=== PATIENT | male | born 1950 | race Two or more races ===

== ENCOUNTER 2019-12-17 00:43 | Day surgery (SDC) | payer MEDICARE, SELFPAY ==
[2019-12-12 10:58] VITALS: BMI 25.9
[2019-12-17 07:04] VITALS: BP 130/55; PULSE 63; RESP 18; TEMP 36.1; O2SAT 99; BMI 25.7
[2019-12-17] MEDS: LACTATED RINGERS 1,000 ML 150 ML IV CONT (07:27)
--- NOTE | 2019-12-17 07:34 | WPDANESEPPF ---
Anes - Initial Pre Proc Eval Procedure: Operation Date: 12/17/19 08:30 Proposed Procedures p Colonoscopy - Pedro Youngblood MD Date/Time: 12/17/19 07:34 Surgeon: Pedro Youngblood MD Pre Op Diagnosis: DIARRHEA Patient Data Age: 69 Gender: M Height: 5 ft 10 in Weight: 81.5 kg Last Vital Signs Temp 97 F L 12/17/19 07:04 Pulse 63 12/17/19 07:04 Resp 18 12/17/19 07:04 BP 130/55 L 12/17/19 07:04 Pulse Ox 99 12/17/19 07:04 Allergies Allergy/AdvReac Type Severity Reaction Status Date / Time pseudoephedrine Allergy Mild RAPID Verified 12/17/19 07:03 [From [facility]] HEART BEAT Home Medications Medication Instructions Recorded Confirmed Type atorvastatin 20 mg tablet 20 mg PO DAILY #90 tablet 08/28/19 12/17/19 Rx cyclobenzaprine 10 mg tablet 10 mg PO TID #60 tablet 10/09/19 12/17/19 Rx aspirin 81 mg tablet,delayed 81 mg PO DAILY 11/16/19 12/17/19 History release cholecalciferol (vitamin D3) 100 2,000 unit PO DAILY cap 11/16/19 12/17/19 History mcg (4,000 unit) capsule diazepam 2 mg tablet 2 mg PO Q6H PRN tablet 11/16/19 12/17/19 History lisinopril 20 1 tablet PO DAILY 11/16/19 12/17/19 History mg-hydrochlorothiazide 12.5 mg tablet naproxen 500 mg tablet 500 mg PO BID PRN 11/16/19 12/12/19 History cholestyramine (with sugar) 4 gram 4 gm PO BID #378 gm 11/28/19 12/17/19 Rx oral powder alprazolam [Xanax] 1 mg PO DAILY 12/12/19 12/17/19 History sertraline [Zoloft] 50 mg PO DAILY 12/12/19 12/12/19 History Patient hx anesthesia problems: none Family hx anesthesia problems: none PMFSH Past Medical History Medical History (Updated 12/17/19 @ 07:33 by Bello Carpio MD) Essential (primary) hypertension History of colon polyps CLIFFORD on CPAP Surgical History Surgical History (Updated 03/06/20 @ 10:28 by Leyla Hawkins MA) H/O transurethral resection of prostate Social History Social History Smoking status: Heavy tobacco smoker Alcohol intake: current Gender identity (if verbalized by the patient): Male Anes - Eval Final PreProcedure Day of Procedure 12/17/19 07:34 Patient weight: normal Heart: regular rate and rhythm Lungs: clear to auscultation Airway: Mallampati scale class II Neurological: alert and oriented Last oral intake: >/= 8 hours ASA classification: III Emergent: no Anesthetic plan: proceed Anesthesia type and monitoring: general GIVS and standard monitoring Informed Consent: The patient's anesthetic plan and its attendant risks and benefits were discussed with the patient/family/POA. Questions were solicited and answers provided to the satisfaction of the patient/family/POA.
--- NOTE | 2019-12-17 08:45 | WPDGICN ---
Assessment and Plan Additional Plan This is a 69-year-old white male patient seen in evaluation at the request Dr. Sultana. Patient reports diarrhea for the last 2 months sometimes core occurring 15-20 times a day. He denies any bleeding. He states he has poor control of bowel movements. He notes significant urgency with need to go promptly after urgent approaches. He denies any pain. He denies any fever. He has had no recent travel. Recent stool cultures were found to be negative. He was empirically started on Questran with questionable improvement of symptoms. He underwent a trial of Cipro 1 month ago with no change in symptoms. He recently received a 2nd trial of Flagyl with no change in symptoms as well. Repeat stool cultures were found to be negative. Past medical history is significant for hypertension. He does have a prior history of colon polyps. Family history noncontributory. Current medications include Xanax, aspirin, atorvastatin, vitamins, Questran, Valium, cyclobenzaprine, Naprosyn, lisinopril, Zoloft, he has an allergy stated to Sudafed. Physical exam reveals patient to be alert. Anicteric. Vital signs stable. HEENT exam unremarkable. Lungs are clear to auscultation and percussion. Heart without murmur. Abdomen bowel sounds are present soft nontender with no organomegaly. Digital external rectal exam normal. Impression 1. Chronic diarrhea. Etiology unclear. No response to empiric trial of antibiotics. Negative stool cultures. Plan is to proceed with colonoscopy to assess more thoroughly. This could represent irritable bowel syndrome but degree of diarrhea is much more significant than expected. Plan is for colonoscopy with further recommendations after endoscopy. GI Consult Note Consult date/time: 12/17/19 08:45 HPI: Javan Tatum is a 69 year old male [facility] Past Medical History Medical History (Updated 12/17/19 @ 07:33 by Bello Carpio MD) Essential (primary) hypertension History of colon polyps CLIFFORD on CPAP Surgical History Surgical History (Updated 11/16/19 @ 10:28 by Leyla Hawkins MA) H/O transurethral resection of prostate Social History Social History Smoking status: Heavy tobacco smoker Alcohol intake: current Gender identity (if verbalized by the patient): Male Meds Home Medications and Allergies Home Medications Medication Instructions Recorded Confirmed Type atorvastatin 20 mg tablet 20 mg PO DAILY #90 tablet 08/28/19 12/17/19 Rx cyclobenzaprine 10 mg tablet 10 mg PO TID #60 tablet 10/09/19 12/17/19 Rx aspirin 81 mg tablet,delayed 81 mg PO DAILY 11/16/19 12/17/19 History release cholecalciferol (vitamin D3) 100 2,000 unit PO DAILY cap 11/16/19 12/17/19 History mcg (4,000 unit) capsule diazepam 2 mg tablet 2 mg PO Q6H PRN tablet 11/16/19 12/17/19 History lisinopril 20 1 tablet PO DAILY 11/16/19 12/17/19 History mg-hydrochlorothiazide 12.5 mg tablet naproxen 500 mg tablet 500 mg PO BID PRN 11/16/19 12/12/19 History cholestyramine (with sugar) 4 gram 4 gm PO BID #378 gm 11/28/19 12/17/19 Rx oral powder alprazolam [Xanax] 1 mg PO DAILY 12/12/19 12/17/19 History sertraline [Zoloft] 50 mg PO DAILY 12/12/19 12/12/19 History Allergies Allergy/AdvReac Type Severity Reaction Status Date / Time pseudoephedrine Allergy Mild RAPID Verified 12/17/19 07:03 [From [facility]] HEART BEAT Vital Signs Vital Signs - 24 hr 12/17/19 07:04 Temperature 36.1 C L Pulse Rate 63 Respiratory Rate 18 Blood Pressure 130/55 L Pulse Oximetry 99
[2019-12-17 09:16] VITALS: BP 107/61; PULSE 66; RESP 22; O2SAT 99
[2019-12-17 09:26] VITALS: BP 110/63; PULSE 60; RESP 25; O2SAT 99
[2019-12-17 09:36] VITALS: BP 130/69; PULSE 59; RESP 26; O2SAT 100
== END 2019-12-17 09:59 | disposition home or self-care (01) ==
PROVIDERS: PCP Family Medicine; Visit Provider Internal Medicine Gastroenterology
PROC: 0DJD8ZZ Inspection of Lower Intestinal Tract, Via Natural or Artificial Opening Endoscopic (ICD-10-PCS; CPT 45378; principal; 2019-12-17 08:30)
DX: K52.831 Collagenous colitis (principal); K64.8 Other hemorrhoids; Z86.010 Personal history of colon polyps; I10 Essential (primary) hypertension; G47.33 Obstructive sleep apnea (adult) (pediatric); Z79.82 Long term (current) use of aspirin; Z72.0 Tobacco use
CPT/HCPCS: 45380; 88305; J2704; J7120

== ENCOUNTER 2021-04-02 22:09 | Observation (INO) | payer MEDICARE, SELFPAY ==
--- NOTE | ~2021-04-02 | CT_ITS ---
EXAMINATION: CT abdomen pelvis w con EXAM DATE: 04/02/2021 23:48 INDICATION: RLQ abd pain. TECHNIQUE: Spiral CT of the abdomen and pelvis was performed following intravenous injection of 100 m L Omnipaque 350. Axial, coronal and sagittal images of the abdomen and pelvis were reviewed. The do se-length product (DLP) for this examination was 397.92 mGy-cm. The exposure was tailored according to patient size (auto mA exposure control), and iterative reconstruction (ASIR) was used as additiona l dose reduction technique. There is no prior study for comparison. FINDINGS: Patient appendix is dilated, fluid-filled and with mild adjacent inflammation, acute uncomp licated appendicitis. The liver, spleen, adrenal glands and pancreas are unremarkable. Some punctate gallstones. Nonspecif ic bilateral perinephric fat stranding. Portal and splenic veins are patent. Kidneys enhance symmet rically. There is no hydronephrosis. TURP defect. The bladder is unremarkable. There is no retro peritoneal or pelvic lymphadenopathy. There is extensive scattered arterial sclerotic disease. The stomach and small bowel are unremarkable. There is moderate amount of colonic stool. No free i ntraperitoneal gas. The heart is normal in size. There are no pericardial or pleural effusions. T he lung bases are unremarkable. Advanced lumbar spondylosis. IMPRESSION: Acute uncomplicated appendicitis. I discussed appendicitis with Faheem Mcginnis DO at 04/02/2021 23:50 CDT. Reviewed, dictated and finalized at location A.
[2021-04-02 22:10] VITALS: BP 115/57; PULSE 89; RESP 16; TEMP 37.1; O2SAT 97
[2021-04-02 22:27] LABS: Basophils Absolute Auto 0.1 K/mm3 (0.0-0.1); Basophils Percent Auto 0.4 % (0.2-1.2); Eosinophils Absolute Auto 0.2 K/mm3 (0-0.3); Eosinophils Percent Auto 1.5 % (0-4.4); Hematocrit 37.5 % (42.0-52.0); Hemoglobin 13.2 g/dL (14.0-18.0); Immature Granulocyte Absolute 0.07 K/mm3 (0.00-0.031); Immature Granulocyte Percent A 0.5 % (0-0.5); Lymphocytes Absolute Auto 1.06 K/mm3 (0.9-3.2); Lymphocytes Percent Auto 7.4 % (18.3-44.2); Mean Corpuscular HGB Conc 35.2 g/dl (32-36); Mean Corpuscular Hemoglobin 34.6 pg (26-34); Mean Corpuscular Volume 98.4 fl (80-100); Monocytes Absolute Auto 0.7 K/mm3 (0.1-0.6); Neutrophils Absolute Auto 12.2 K/mm3 (1.3-6.7); Neutrophils Percent Auto 85.2 % (45.5-73.1); Platelet Count Result 236 k/mm3 (150-375); Red Blood Count 3.81 M/mm3 (4.6-6.20); Red Cell Distribution Width 12.9 % (11.5-14.5); White Blood Count 14.3 K/mm3 (4.5-10.0)
--- NOTE | 2021-04-02 22:34 | ED.ABDPAIN ---
HPI - Abdominal Pain General Chief Complaint: Abdominal Pain Stated Complaint: abd pain Time Seen by Provider: 04/02/21 22:16 Source: RN notes reviewed History of Present Illness HPI narrative: Patient presents to emergency room from home for abdominal pain. Patient states symptoms began approximately 8 AM this morning. The pain is located in the right lower quadrant does not radiate described as sharp and stabbing. States nothing makes the pain better or worse. States that has been associated with several episodes of diarrhea. The patient did take [place] approximately 1-1/2 hours ago for pain that he has for chronic back pain with no relief he notes a low-grade fever of 100.2 at home today denies any nausea vomiting or any other symptoms Related Data Home Medications Medication Instructions Recorded Confirmed aspirin 81 mg tablet,delayed 81 mg PO DAILY 11/16/19 03/03/21 release cholecalciferol (vitamin D3) 100 2,000 unit PO DAILY cap 11/16/19 03/03/21 mcg (4,000 unit) capsule diazepam 2 mg tablet 2 mg PO Q6H PRN tablet 11/16/19 03/03/21 naproxen 500 mg tablet 500 mg PO BID PRN 11/16/19 03/03/21 Allergies Allergy/AdvReac Type Severity Reaction Status Date / Time pseudoephedrine Allergy Mild RAPID Verified 03/03/21 11:47 [From [facility]] HEART BEAT Review of Systems Review of Systems: Narrative: Gen.: Reports low-grade fever this morning ENT: Denies congestion Respiratory: Denies shortness of breath or cough CV: Denies chest pain or palpitations GI: HPI denies burning, urgency, frequency or hematuria Musculoskeletal: Denies back pain or muscle pain Neuro: Denies numbness, tingling, weakness or focal weakness Skin: Denies rash Except as documented, all other systems reviewed and negative PMF Past Medical History Medical History Essential (primary) hypertension History of colon polyps Surgical History Surgical History H/O transurethral resection of prostate History of lumbar laminectomy S/P TURP Status post trigger finger release Family History Family History Father Acute myocardial infarction Mother Family history of lung cancer Sibling Family history of malignant neoplasm of brain Social History Social History Alcohol intake: current Gender identity (if verbalized by the patient): Male Exam Narrative: Exam Narrative: APPEARANCE: No acute distress, nontoxic, resting in bed HEENT: Normocephalic, atraumatic, OMM RESPIRATORY: No respiratory distress, clear to auscultation bilaterally with no rhonchi wheezing or rales CARDIOVASCULAR: RRR s murmur ABDOMINAL: Soft nondistended tender palpation right lower quadrant with mild tenderness left lower quadrant no rebound or guarding MUSCULOSKELETAl: Moves all extremities. No clubbing, cyanosis or edema. NEURO: Awake and alert. Following commands, speech normal, no focal deficits SKIN:: Warm, dry. Normal Color PSYCHIATRIC: Normal affect/mood Course Course Emergency Course: Discussed with Dr. verdugo presentation work-up. Accepts admission at this time request patient started on Zosyn Discussed with patient and family results of workup and diagnosis. Discussed need for admission. Patient and family understand and agree to current treatment plan Vital Signs Vital signs: Vital Signs Temperature 98.8 F 04/02/21 22:10 Pulse Rate 89 04/02/21 22:10 Respiratory Rate 16 04/02/21 22:10 Blood Pressure 115/57 L 04/02/21 22:10 Pulse Oximetry 97 04/02/21 22:10 Temperature 98.8 F 04/02/21 22:10 Pulse Rate 89 04/02/21 22:10 Respiratory Rate 16 04/02/21 22:10 Blood Pressure 115/57 L 04/02/21 22:10 Pulse Oximetry 97 04/02/21 22:10 MDM - Abdominal Pain Lab Data Result diagrams: 07
[2021-04-02 22:36] LABS: Alanine Aminotransferase 49 U/L (4-50); Alkaline Phosphatase 144 U/L (38-126); Anion Gap 7 mmol/L (8-16); Aspartate Amino Transferase 57 U/L (17-59); Bilirubin,Total 0.6 mg/dL (0.2-1.3); Blood Urea Nitrogen 12 mg/dL (9-20); Calcium 9.4 mg/dL (8.4-10.2); Carbon Dioxide 27 mmol/L (22-30); Chloride 94 mmol/L (98-107); Estimated Glomerular Filt Rate > 60; Glucose 109 mg/dL (65-110); Lipase 229 U/L (23-300); Potassium 3.8 mmol/L (3.4-5.0); Sodium 128 mmol/L (137-145)
[2021-04-02] MEDS: SODIUM CHLORIDE 0.9% IV 1,000 ML 999 ML IV CONT (23:01)
[2021-04-02] MEDS: MORPHINE SULFATE (*CRX) 4 MG/ML INJ 2 MG IV PUSH (23:01)
--- NOTE | 2021-04-02 23:27 | PC.NURSE ---
Pt unable to urinate at this time. Refusing straight catheter at this time. Urinal at bedside.
--- NOTE | 2021-04-02 23:28 | PC.NURSE ---
Pt to imaging at this time.
[2021-04-03] VITALS (12 sets, daily range): BP systolic 101–143; BP diastolic 55–80; PULSE 62–79; RESP 11–20; TEMP 35.9–37.3; O2SAT 96–100; BMI 24.5
[2021-04-03 00:15] LABS: Add Urine Microscopic? NO; Appearance Urine Clear (Clear); Bilirubin Urine Negative (Negative); Blood Urine Negative (Negative); Color Urine Straw (Yellow); Glucose Urine UA Negative (Negative); Ketones Urine Negative (Negative); Leukocyte Esterase Ur Negative LEU/UL (Negative); Nitrate Urine Negative (Negative); Protein Urine Negative (Negative); Specific Grav Ur 1.019 (1.001-1.035); Urobilinogen Urine Negative mg/dL (<2.0)
--- NOTE | 2021-04-03 02:18 | PC.NURSE ---
This patient, Javan Tatum, was admitted to 3 Med Surg Room 322-02 @01:55. Report taken from Summer RN in ED Patient/family oriented to hospital policies and general routines including ID bracelet, bed and alarms, visiting hours, pain management, procedures, bathroom and other care routines, personal items, smoking policy, room service/diet, and visiting hours. Information on how to activate the Rapid Response Team has been discussed. Patient/Family are encouraged to report perceived risks to care and to ask questions if they do not understand what they are told or what they should do.
[2021-04-03] MEDS: SODIUM CHLORIDE 0.9% IV 1,000 ML 125 ML IV CONT ×2 (02:38→10:26)
[2021-04-03] MEDS: MORPHINE SULFATE (*CRX) 2 MG/ML INJ IV PUSH ×3 (02:38→11:56)
[2021-04-03 06:36] LABS: Basophils Percent Auto 0.3 % (0.2-1.2); Eosinophils Absolute Auto 0.4 K/mm3 (0-0.3); Eosinophils Percent Auto 3.1 % (0-4.4); Hematocrit 33.5 % (42.0-52.0); Hemoglobin 11.6 g/dL (14.0-18.0); Immature Granulocyte Absolute 0.08 K/mm3 (0.00-0.031); Immature Granulocyte Percent A 0.6 % (0-0.5); Lymphocytes Absolute Auto 1.99 K/mm3 (0.9-3.2); Lymphocytes Percent Auto 14.9 % (18.3-44.2); Mean Corpuscular HGB Conc 34.6 g/dl (32-36); Mean Corpuscular Hemoglobin 34.2 pg (26-34); Mean Corpuscular Volume 98.8 fl (80-100); Mean Platelet Volume 9.2 fl (7.4-10.4); Monocytes Absolute Auto 0.8 K/mm3 (0.1-0.6); Monocytes Percent Auto 5.9 % (2.6-8.5); Neutrophils Percent Auto 75.2 % (45.5-73.1); Platelet Count Result 220 k/mm3 (150-375); Red Blood Count 3.39 M/mm3 (4.6-6.20); Red Cell Distribution Width 13.1 % (11.5-14.5); White Blood Count 13.4 K/mm3 (4.5-10.0)
[2021-04-03 06:52] LABS: Anion Gap 3 mmol/L (8-16); Blood Urea Nitrogen 10 mg/dL (9-20); Calcium 8.4 mg/dL (8.4-10.2); Carbon Dioxide 27 mmol/L (22-30); Chloride 102 mmol/L (98-107); Estimated CRCL calculation 76 ml/min; Estimated Glomerular Filt Rate > 60; Glucose 93 mg/dL (65-110); Potassium 3.6 mmol/L (3.4-5.0); Sodium 132 mmol/L (137-145)
--- NOTE | 2021-04-03 08:04 | PM.IMHP ---
H&P: HPI History of Present Illness Date/Time: 04/03/21 08:04 Chief Complaint: Right lower quadrant pain Narrative: this is a 70-year-old man who presented to the emergency department overnight with right lower quadrant abdominal pain. His pain started yesterday morning. He had a couple episodes of diarrhea the night before, but no other abdominal complaints. He has never experienced anything like this before. He denies any nausea or vomiting. His temperature was slightly rising, but he was never febrile. Workup in the emergency department showed evidence of an elevated white blood count and CT confirmed acute appendicitis. He was started on Zosyn and admitted to the hospital. Since being admitted he states that his pain is controlled. He does have a history of collagenous colitis and underwent colonoscopy just a little over [address] Youngblood. He is a current smoker. He has received the COVID vaccine. Review of Systems Review of Systems: All systems reviewed & are unremarkable except as noted in HPI and below Eyes: Eyes: Denies change in vision ENT: Denies hearing loss, Denies neck pain and Denies sore throat Cardiovascular: Cardiovascular: Denies chest pain and Denies dyspnea Respiratory: Respiratory: Denies cough, Denies dyspnea and Denies wheezing Gastrointestinal: Gastrointestinal: Reports as per HPI Genitourinary: Genitourinary: Denies hematuria and Denies dysuria Musculoskeletal: Musculoskeletal: Denies arthralgias, Denies joint swelling and Denies neck pain Allergic/Immunologic: Allergic/Immunologic: Denies wheezing PMFSH Past Medical History Medical History Essential (primary) hypertension History of colon polyps Surgical History Surgical History H/O transurethral resection of prostate History of lumbar laminectomy S/P TURP Status post trigger finger release Family History Family History Father Acute myocardial infarction Mother Family history of lung cancer Sibling Family history of malignant neoplasm of brain Social History Social History Smoking packs per day: 1.2 Smoking cigarettes per day: 24.0 Years smoked: 55 Smoking pack-years: 66.00 Smoking status: Current every day smoker Alcohol intake: current Drinks per week: 35 Substance use: current Substance use type: marijuana Gender identity (if verbalized by the patient): Male Spiritual care concerns: No Meds Home Medications and Allergies Home Medications Medication Instructions Recorded Confirmed Type aspirin 81 mg tablet,delayed 81 mg PO DAILY 11/16/19 04/03/21 History release diazepam 2 mg tablet 2 mg PO Q6H PRN tablet 11/16/19 04/03/21 History naproxen 500 mg tablet 500 mg PO BID PRN 11/16/19 04/03/21 History lisinopril 20 1 tablet PO DAILY #90 tablet 05/07/20 04/03/21 Rx mg-hydrochlorothiazide 12.5 mg tablet hydrocodone 5 mg-acetaminophen 325 1 tablet PO Q6H #42 tablet 03/03/21 04/03/21 Rx mg tablet alprazolam [Xanax] 1 mg PO HS PRN 04/03/21 04/03/21 History atorvastatin 20 mg PO DAILY 04/03/21 04/03/21 History budesonide 3 mg PO DAILY 04/03/21 04/03/21 History cyclobenzaprine [Flexeril] 10 mg PO TID PRN 04/03/21 04/03/21 History dextromethorphan-guaifenesin 1 tablet PO Q12H PRN 04/03/21 04/03/21 History [Guaifenesin DM] fexofenadine [Sarah] 180 mg PO DAILY PRN 04/03/21 04/03/21 History sertraline 50 mg PO DAILY 04/03/21 04/03/21 History Allergies Allergy/AdvReac Type Severity Reaction Status Date / Time pseudoephedrine Allergy Mild RAPID Verified 04/03/21 03:21 [From [facility]] HEART BEAT Vital Signs Vital Signs - 24 hr 04/02/21 22:10 04/03/21 00:58 04/03/21 06:00 Temperature 37.1 C 36.2 C L Pulse Rate 89 75 62 Respir
--- NOTE | 2021-04-03 08:10 | WPDHPUPDATE1 ---
History and Physical Update Update Date/Time: 04/03/21 08:10 History and Physical has been reviewed, including an updated exam of the patient. There are NO changes in the patient's condition. Risks, benefits, and alternatives have been discussed and questions answered. Patient agrees to proceed with procedure.
--- NOTE | 2021-04-03 13:13 | WPDANESEPPF ---
Anes - Initial Pre Proc Eval Procedure: Operation Date: 04/03/21 14:30 Proposed Procedures p Laparoscopic Appendectomy - Javan Mandel DO Date/Time: 04/03/21 13:13 Surgeon: Javan Mandel DO Pre Op Diagnosis: Appendicitis Patient Data Age: 70 Gender: M Height: 1.78 m Weight: 77.5 kg Last Vital Signs Temp 36.2 C L 04/03/21 06:00 Pulse 62 04/03/21 06:00 Resp 16 04/03/21 06:00 BP 103/56 L 04/03/21 06:00 Pulse Ox 96 04/03/21 06:00 Allergies Allergy/AdvReac Type Severity Reaction Status Date / Time pseudoephedrine Allergy Mild RAPID Verified 04/03/21 03:21 [From [facility]] HEART BEAT Home Medications Medication Instructions Recorded Confirmed Type aspirin 81 mg tablet,delayed 81 mg PO DAILY 11/16/19 04/03/21 History release diazepam 2 mg tablet 2 mg PO Q6H PRN tablet 11/16/19 04/03/21 History naproxen 500 mg tablet 500 mg PO BID PRN 11/16/19 04/03/21 History lisinopril 20 1 tablet PO DAILY #90 tablet 05/07/20 04/03/21 Rx mg-hydrochlorothiazide 12.5 mg tablet hydrocodone 5 mg-acetaminophen 325 1 tablet PO Q6H #42 tablet 03/03/21 04/03/21 Rx mg tablet alprazolam [Xanax] 1 mg PO HS PRN 04/03/21 04/03/21 History atorvastatin 20 mg PO DAILY 04/03/21 04/03/21 History budesonide 3 mg PO DAILY 04/03/21 04/03/21 History cyclobenzaprine [Flexeril] 10 mg PO TID PRN 04/03/21 04/03/21 History dextromethorphan-guaifenesin 1 tablet PO Q12H PRN 04/03/21 04/03/21 History [Guaifenesin DM] fexofenadine [Sarah] 180 mg PO DAILY PRN 04/03/21 04/03/21 History sertraline 50 mg PO DAILY 04/03/21 04/03/21 History Laboratory Tests 04/02/21 04/02/21 04/03/21 22:18 22:18 00:05 WBC 14.3 K/mm3 H K/mm3 (4.5-10.0) RBC 3.81 M/mm3 L M/mm3 (4.6-6.20) Hgb 13.2 g/dL L g/dL (14.0-18.0) Hct 37.5 % L % (42.0-52.0) MCV 98.4 fl fl (80-100) MCH 34.6 pg H pg (26-34) MCHC 35.2 g/dl g/dl (32-36) RDW 12.9 % % (11.5-14.5) Plt Count 236 k/mm3 k/mm3 (150-375) MPV 9.0 fl fl (7.4-10.4) Immature Gran % (Auto) 0.5 % % (0-0.5) Neut % (Auto) 85.2 % H % (45.5-73.1) Lymph % (Auto) 7.4 % L % (18.3-44.2) Edmunds % (Auto) 5.0 % % (2.6-8.5) Eos % (Auto) 1.5 % % (0-4.4) Baso % (Auto) 0.4 % % (0.2-1.2) Lymph # (Auto) 1.06 K/mm3 K/mm3 (0.9-3.2) Edmunds # (Auto) 0.7 K/mm3 H K/mm3 (0.1-0.6) Eos # (Auto) 0.2 K/mm3 K/mm3 (0-0.3) Baso # (Auto) 0.1 K/mm3 K/mm3 (0.0-0.1) Abs Immat Gran (auto) 0.07 K/mm3 H K/mm3 (0.00-0.031) Absolute Neuts (auto) 12.2 K/mm3 H K/mm3 (1.3-6.7) Absolute Nucleated RBC 0.0 K/mm3 K/mm3 (0.0-0.012) Nucleated RBC % 0.0 % % (0.0-0.2) Sodium 128 mmol/L L mmol/L (137-145) Potassium 3.8 mmol/L mmol/L (3.4-5.0) Chloride 94 mmol/L L mmol/L (98-107) Carbon Dioxide 27 mmol/L mmol/L (22-30) Anion Gap 7 mmol/L L mmol/L (8-16) BUN 12 mg/dL mg/dL (9-20) Creatinine 0.80 mg/dL mg/dL (0.7-1.3) Estim Creat Clear Calc Not Reportable Estimated GFR > 60 (59 - ) Glucose 109 mg/dL mg/dL (65-110) Calcium 9.4 mg/dL mg/dL (8.4-10.2) Total Bilirubin 0.6 mg/dL mg/dL (0.2-1.3) AST 57 U/L U/L (17-59) ALT 49 U/L U/L (4-50) Alkaline Phosphatase 144 U/L H U/L (38-126) Total Protein 7.0 g/dL g/dL (6.3-8.2) Albumin 4.0 g/dL g/dL (3.5-5.1) Lipase 229 U/L U/L (23-300) Urine Color Straw (Yellow) Urine Appearance Clear (Clear) Urine pH 7.0 (5.0-9.0) Ur Specific Worth 1.019 (1.001-1.035) Urine Protein Negative mg/dL mg/dL (Negative) Urine Glucose (UA) Negative mg/dL mg/dL
--- NOTE | 2021-04-03 13:26 | PC.NURSE ---
to OR per stretcher. with patient.
[2021-04-03] MEDS: BUPIVACAINE/EPINEPHRINE 0.5% 10 ML VIAL 30 ML INFILTRATE (15:29)
[2021-04-03] MEDS: LACTATED RINGERS 1,000 ML 30 ML IV CONT ×2 (16:00→16:38)
[2021-04-03] MEDS: fentaNYL CITRATE INJ (*CRX) 100 MCG/2 ML VIAL 25 MCG IV PUSH ×4 (16:34→16:49)
--- NOTE | 2021-04-03 16:45 | W.PM.PROC2 ---
Procedure Note - Detailed Date of Procedure 04/03/21 Pre-op Diagnosis Acute Appendicitis Post-op Diagnosis same Procedure Performed Laparoscopic appendectomy Surgeon Javan Mandel, DO Anesthesia general and local (0.5% bupivacaine with epinephrine) Indications This is a 70-year-old man who presented with right lower quadrant pain that started yesterday. He has never experienced symptoms like this in the past. His pain continued to worsen. Therefore he presented to the emergency department. CT showed evidence of acute appendicitis. He was started IV Zosyn and discussions were made with the patient and decision was made to proceed with laparoscopic appendectomy, possible open. Findings Laparoscopic appendectomy was performed. The appendix appeared dilated and inflamed. There was a small amount of exudate on the surface of the appendix, but it did not appear to be clearly perforated. There was no evidence of abscess. The base of the appendix appeared healthy and viable. The appendix was removed and sent to the lab for pathology. No other intra-abdominal abnormalities were noted. Description of Procedure Procedure as well as risks, benefits, and alternatives were explained to the patient. The patient agreed to proceed. Written consent was obtained and placed in chart prior to procedure. The patient was brought back to surgical suite. He was placed supine on operating table. Time-out was done to confirm the patient and procedure. The patient was then intubated by the Anesthesia Department. his abdomen was prepped and draped in sterile fashion using chlorhexidine prep. A 12 mm incision was made at the inferior portion of the umbilicus. Blunt dissection was carried out down to the linea alba. The linea alba was then incised using a 15 blade scalpel. Then bluntly entered into the peritoneal cavity. A 12 mm trocar was then inserted, and carbon dioxide insufflation was used to create a pneumoperitoneum. The camera was inserted and the abdomen was inspected. No immediate abnormalities were identified. The patient was then placed in slight Trendelenburg position and rotated to the left. A 5 mm incision was made in the suprapubic region in midline and a 5 mm trocar was inserted under direct visualization. A 5 mm incision was made in the left lower quadrant and a 5 mm trocar was inserted under direct visualization. The right lower quadrant was carefully inspected. The cecum was identified and then this was traced back to the appendix. The appendix was identified and grasped at the mesoappendix and lifted anteriorly. Careful blunt dissection was carried out at the base of the appendix through the mesoappendix using a [place] grasper. An Endo-KARLA 45 mm blue load stapler was then advanced across the base of the appendix and clamped and fired. A white reload was then clamped across the mesoappendix and fired. This freed up our appendix completely. It was then placed in an EndoCatch bag and removed through the umbilical port. The staple lines were then inspected. Hemostasis appeared adequate and the staple lines appeared secure. The area was then irrigated with sterile saline. The pelvis was then carefully inspected and irrigated with sterile saline as well and the remainder of the abdomen was carefully inspected. The patient was then flattened out in bed. One final inspection was made around the abdominal cavity and no other abnormalities were seen. The ports were then removed under direct visualization. The camera was removed and the pneumoperitoneum was released. The fascia of the umbilical incision was reapproximated using an 0 Vicryl [id number] suture. 0.5% bupivacaine with epinephrine was infiltrated locally around each of the incisions. The skin of the incisions was then approximated using 4-0 Monocryl subcuticular suture and Exofin glue was applied on top. The patient was then awakened from anesthesia, extubated, and transferred
--- NOTE | 2021-04-03 16:54 | SUR.PHASEI ---
DR WALDRON SPEAKING TO PT IN PACU. HE STATES HE CALLED THE
--- NOTE | 2021-04-03 16:57 | SUR.PHASEI ---
PT EATING ICE CHIPS
--- NOTE | 2021-04-03 17:25 | PC.NURSE ---
patient returning to room from surgery
[2021-04-03] MEDS: HYDROcodone/acetaminophen (*CRX) 5-325 MG TABLET 1 TAB PO (18:24)
--- NOTE | 2021-04-09 16:51 | PM.DS ---
DS: Admitting Diagnosis Admitting Diagnosis Acute appendicitis DS: Discharge Diagnosis Discharge Diagnosis (1) Acute appendicitis: Qualifiers: Acute appendicitis type: with localized peritonitis Appendicitis gangrene presence: without gangrene Appendicitis perforation presence: without perforation Appendicitis abscess presence: without abscess Qualified Code(s): K35.30 - Acute appendicitis with localized peritonitis, without perforation or gangrene Code(s): K35.80 - Unspecified acute appendicitis Status: Acute (2) Essential (primary) hypertension: Code(s): I10 - Essential (primary) hypertension Status: Acute (3) Generalized anxiety disorder: Code(s): F41.1 - Generalized anxiety disorder Status: Acute (4) Cigarette smoker: Code(s): F17.210 - Nicotine dependence, cigarettes, uncomplicated Status: Acute DS: Summary Hospital Course Reason for hospitalization: Acute appendicitis Hospital Course: 70 yo man presented to ED on 04/02/21 with RLQ abdominal pain and was found to have evidence of acute appendicitis. He was started on Zosyn and admitted for further management. Laparoscopic appendectomy was performed on 04/03/21 and was uncomplicated. He was returned to the Surgical Floor. Diet and activity were advanced as tolerated. Later that day, he was remaining stable and tolerating diet with adequate pain control. He was discharged on 04/03/21. Time spent discussing smoking cessation with patient: 3 to 10 minutes Status at Discharge Functional status at discharge: independent ambulation Overall status at discharge: patient is progressing back to baseline Time Spent with Patient Time attestation: Total time spent providing and/or coordinating discharge services: Time spent: Less than 30 minutes Exam Narrative: exam unchanged from preoperatively, except for surgical incisions on abdomen. DS: Data Data Completed and Pending Completed studies during hospitalization: Pending at discharge 04/03/21 15:48 Surgical [PTH] Routine Imaging Radiologist's impression: ITS Impressions Abdomen/Pelvis CT 04/02/21 23:50 IMPRESSION: Acute uncomplicated appendicitis. I discussed appendicitis with Faheem Mcginnis DO at 04/02/2021 23:50 CDT. Discharge Plan Discharge Attending physician on discharge: Javan Waldron Consulting providers: Raul Henderson Discharging Clinician: Javan Waldron Anticipated Discharge Date/Time: 04/03/21 19:00 Patient Disposition: Home, Self-Care Activity: other - see discharge instructions Diet: other - see discharge instructions Wound Care Instructions: other - see discharge instructions Discharge Instructions: DISCHARGE INSTRUCTION SHEET FOR HERNIA, GALLBLADDER AND APPENDIX SURGERIES DR. WALDRON PATIENT TO TAKE HOME 1. May shower in 24 hours, no soaking in bath x 2weeks. 2. Call office for: Wound increasingly painful or bleeding Vomiting Fever of greater than 101 degrees 3. If no bowel movement for three days, take 1 oz. (30 ml) Milk of Magnesia or MiraLax 17g 1 to 2 times daily. 4. No heavy lifting > 10-15 pounds x weeks for hernia repairs and 2 weeks for laparoscopic cholecystectomy or appendectomy. 5. No driving for 3 days or while taking narcotic pain medications. 6. Ice to surgical site for 48 hours (30 min on, then 30 min off). 7. Up walking 10-30 minutes three times per day. 8. Resume previous home medications. 9. Follow-up 10-14 days in office for wound check or as previously scheduled. ([id number]) 10. May take hydrocodone prescription that patient already has at home. Take Tylenol 500mg every 6 hours and Ibuprofen 600mg every 6 hours for the first 2 days, then as needed. 11. NUTRITION: Start out by drinking fluids and increase your diet as tolerated. If you experience nausea, try dry toast, crackers,
== END 2021-04-03 19:13 | disposition home or self-care (01) ==
LOC: ANHED 04-03 00:01 → ANH3MEDSUR 04-03 00:47
PROVIDERS: Admitting Provider Surgery; Emergency Provider Emergency Medicine; PCP Family Medicine; Visit Provider Surgery
PROC: 0DTJ4ZZ Resection of Appendix, Percutaneous Endoscopic Approach (ICD-10-PCS; CPT 44970; principal; 2021-04-03 14:30)
DX: K35.30 Acute appendicitis with localized peritonitis, without perforation or gangrene (principal); R10.31 Right lower quadrant pain; I10 Essential (primary) hypertension; F17.290 Nicotine dependence, other tobacco product, uncomplicated; F41.1 Generalized anxiety disorder
CPT/HCPCS: 44970; 36415; 74177; 80048; 80053; 81003; 83690; 85025; 86850; 86900; 86901; 88304; 96361; 96365; 96366; 96375; 96376; 99285; A9270; G0378; J0330; J1100; J2270; J2405; J2543; J2704; J3010; J7030; J7120; Q9967

== ENCOUNTER → 2021-04-30 11:56 | Outpatient (CLI) | payer MEDICARE, SELFPAY ==
--- NOTE | ~2021-04-30 | CT_ITS ---
EXAMINATION: CT lung screening DATE: 04/30/2021 12:14 INDICATION: Personal history of tobacco dependence TECHNIQUE: Computed tomography (CT) of the chest was performed without intravenous contrast. The dose -length product was 80.27 mGy-cm. Automated exposure control and iterative reconstruction technique w ere employed. COMPARISON: CT dated 10/06/2018 FINDINGS: No significant pleural or pericardial effusion. No thoracic lymphadenopathy. Heart size is normal. There is atherosclerosis of the aorta and coronary arteries. No thoracic lymphadenopathy. Hea rt size is normal. No endobronchial lesions. No pneumothorax. Calcified granuloma left lower lobe. 2- mm right upper lobe nodules at the pleural surface. No focal airspace consolidation. Mild thoracic sp ondylosis. There are healed right rib fractures. No acute osseous abnormality. IMPRESSION: 1. Lung-RADS category 2: Benign appearance or behavior. Continue annual screening with noncontrast lo w-dose chest CT in 12 months. Reviewed, dictated and finalized at location A. IMPRESSION: 1. Lung-RADS category 2: Benign appearance or behavior. Continue annual screeni ng with noncontrast low-dose chest CT in 12 months.
== END ==
PROVIDERS: PCP Family Medicine; Visit Provider Family Medicine
DX: Z87.891 Personal history of nicotine dependence (principal)
CPT/HCPCS: 71271

== ENCOUNTER 2021-05-05 09:15 | Outpatient (CLI) | payer MEDICARE, SELFPAY ==
--- NOTE | 2021-05-05 09:00 | NEURO_ITS ---
PATIENT NUMBER: [id number] IMPRESSION: # Complains of bilateral hand numbness. # Right ulnar neuropahty aross the elbow of moderate degree. # Left ulnar neuropathy across the elbow of very minimaldegree Nerve Conduction Studies Stim Site NR Onset (ms) O-P Amp (mV) Site1 Site2 Delta-0 (ms) Dist (cm) Brennon (m/s) Right Median Motor (Abd Poll Brev) Wrist 3.8 2.2 Elbow Wrist 6.0 30.0 50 Elbow 9.8 1.2 Right Ulnar Motor (Abd Dig Minimi) Wrist 3.7 4.3 A Elbow Wrist 6.5 23.0 35 A Elbow 10.2 3.2 B Elbow Wrist 4.7 0.0 B Elbow 8.4 3.4 F Wave Studies NR F-Lat (ms) L-R F-Lat (ms) Right Median (Mrkrs) (Abd Poll Brev) 35.23 Right Ulnar (Mrkrs) (Abd Dig Min) 34.26 Motor Summary Table Stim Site NR Onset (ms) O-P Amp (mV) Site1 Site2 Delta-0 (ms) Dist (cm) Brennon (m/s) Left Median Motor (Abd Poll Brev) Wrist 4.5 3.4 Elbow Wrist 6.4 30.0 47 Elbow 10.9 3.5 Left Ulnar Motor (Abd Dig Minimi) Wrist 3.1 6.1 A Elbow Wrist 5.7 31.0 54 A Elbow 8.8 5.3 B Elbow Wrist 4.3 25.0 58 B Elbow 7.4 5.5 Right Ulnar Motor (Abd Dig Minimi) Wrist 3.5 4.3 A Elbow Wrist 7.1 32.0 45 Anti Sensory Summary Table Stim Site NR Peak (ms) P-T Amp (?V) Site1 Site2 Delta-P (ms) Dist (cm) Brennon (m/s) Left Median Anti Sensory (2-3nd Digit) Wrist 3.6 28.1 Wrist 2-3nd Digit 3.6 14.0 39 Wrist 3.7 39.0 Wrist 2-3nd Digit 3.6 14.0 39 Right Median Anti Sensory (2-3nd Digit) Wrist 3.8 169.3 Wrist 2-3nd Digit 3.8 14.0 37 Wrist 3.5 37.8 Wrist 2-3nd Digit 3.8 14.0 37 Left Radial Anti Sensory (Base 1st Digit) Wrist 2.2 9.3 Wrist Base 1st Digit 2.2 0.0 Right Radial Anti Sensory (Base 1st Digit) Wrist 3.4 5.8 Wrist Base 1st Digit 3.4 0.0 Left Ulnar Anti Sensory (5th Digit) Wrist 3.2 117.6 Wrist 5th Digit 3.2 14.0 44 Right Ulnar Anti Sensory (5th Digit) Wrist 3.0 57.0 Wrist 5th Digit 3.0 14.0 47 MTDD
--- NOTE | 2021-05-05 14:08 | NEURO_ITS ---
PATIENT NUMBER: [id number] IMPRESSION: # Complains of right hand numbness.and left hand as well # Right ulmar neuropathy across the elbow of medium degree. # left unlan neuropathy across the elbow of very minimal seerity # Left Carpal Tunnel Syndrome MTDD
== END 2021-05-05 09:16 | disposition home or self-care (01) ==
PROVIDERS: PCP Family Medicine; Visit Provider Family Medicine
DX: G60.9 Hereditary and idiopathic neuropathy, unspecified (principal); G56.02 Carpal tunnel syndrome, left upper limb; G56.23 Lesion of ulnar nerve, bilateral upper limbs
CPT/HCPCS: 95886; 95911

== ENCOUNTER 2021-09-20 10:22 | Observation (INO) | payer MEDICARE, SELFPAY ==
[2021-09-20] VITALS (13 sets, daily range): BP systolic 149–152; BP diastolic 69–78; PULSE 64–73; RESP 11–24; TEMP 36.6; O2SAT 98–100; BMI 24.3
--- NOTE | ~2021-09-20 | CT_ITS ---
EXAMINATION: CT abdomen pelvis w con DATE: 09/20/2021 12:07 INDICATION: Right flank pain and ecchymosis after fall. TECHNIQUE: Computed tomography (CT) of the abdomen and pelvis was performed with 100 cc Omnipaque 350 intravenous contrast. The dose-length product was 567.95 mGy-cm. Automated exposure control and iter ative reconstruction technique were employed. COMPARISON: CT dated 04/02/2021. FINDINGS: The lung bases are unremarkable. Heart size normal. No significant pleural or pericardial e ffusion. There are several subcentimeter hypodensities of the liver, most likely benign cysts. There are gallstones. There is bilateral perinephric stranding, nonspecific. There are small subcentimeter hypodensities of both kidneys, most likely cysts. No evidence for perinephric hematoma no retroperito johnnie hemorrhage. The spleen, pancreas, adrenal glands are unremarkable. There is mild bladder wall thickening with TUR defect in the prostate gland. Nonobstructive bowel gas pattern. No free air or free fluid. Severe richard mbar spondylosis with scoliosis. There is a nondisplaced right seventh rib fracture. IMPRESSION: 1. Nondisplaced right seventh rib fracture. No evidence for retroperitoneal or perinephric hematoma. 2: Cholelithiasis. 3: Mild diffuse bladder wall thickening. Consider cystitis in the appropriate clinical setting. Reviewed, dictated and finalized at location A. EXAMINATION CLERK
--- NOTE | ~2021-09-20 | MR_ITS ---
EXAMINATION: MR lumbar spine wo/w con DATE: 09/22/2021 14:42 INDICATION: Weakness. TECHNIQUE: Magnetic resonance imaging (MRI) of the lumbar spine was performed without and with 15 mL MultiHance intravenous contrast. Sequences included sagittal T2-weighted FSE, sagittal T2-weighted FS FSE, and sagittal and axial T1-weighted FSE. Postcontrast sequences included axial T2-weighted FSE a nd axial and sagittal T1-weighted FS FSE. COMPARISON: CT 09/20/2021 FINDINGS: There is 11 degrees levoscoliosis of lumbar spine. There are Schmorl's nodes at multiple le vels. There is moderately decreased disc height at T12-L1 and L1-L2 and severely decreased disc heigh t from L2-L3 through L5-S1 with endplate remodeling. There is Baastrup disease at L3-L4. The distal s isabela cord signal intensity is normal. The conus medullaris is at L1-L2. The following disc levels ar e specifically discussed: T12-L1: The disc is bulging and has an annular fissure. There is mild right and severe left facet teja nt osteoarthritis. There is mild bilateral neural foraminal stenosis. There is mild central canal everett nosis. L1-L2: The disc is bulging and has an annular fissure. There is moderate right and severe left facet joint osteoarthritis. There is moderate bilateral neural foraminal stenosis. There is mild central ca nal stenosis. L2-L3: The disc is bulging and has an annular fissure. There is mild bilateral facet joint osteoarthr itis. There is moderate bilateral neural foraminal stenosis. There is mild central canal stenosis. L3-L4: The disc is bulging and has an annular fissure. There is severe left facet joint osteoarthriti s. There is moderate bilateral neural foraminal stenosis. There is mild central canal stenosis with p osterior decompression. L4-L5: The disc is bulging and has an annular fissure. There is severe bilateral facet joint osteoart hritis. There is moderate bilateral neural foraminal stenosis. There is severe central canal stenosis . L5-S1: The disc is bulging and has an annular fissure. There is severe bilateral facet joint osteoart hritis. There is moderate bilateral neural foraminal stenosis. There is mild central canal stenosis. IMPRESSION: 1. Severe lumbar spondylosis. 2. Lumbar levoscoliosis. Reviewed, dictated and finalized at location B. [employer]CRAFT [employer] HOBBY SHOP MANAGER
--- NOTE | ~2021-09-20 | CT_ITS ---
EXAMINATION: CT BRAIN W/O DATE: 09/20/2021 12:07 INDICATION: Weakness after fall TECHNIQUE: Computed tomography (CT) of the head was performed without intravenous contrast. The dose- length product was 605.33 mGy-cm. COMPARISON: No prior studies for comparison. FINDINGS: Normal brain parenchymal volume for age. Normal coombs-white differentiation. No acute intrac ranial hemorrhage, infarction, mass or mass effect. No ventriculomegaly or midline shift. Midline sagittal images demonstrate a normal corpus callosum, c raniovertebral junction and sella turcica. Basilar cisterns are patent. Paranasal sinuses and mastoids are pneumatized. No depressed skull fractures. IMPRESSION: 1. No acute intracranial abnormality. Reviewed, dictated and finalized at location A. T BROKER
--- NOTE | ~2021-09-20 | XR_ITS ---
EXAMINATION: XR chest 2V 09/20/2021 11:06 INDICATION: Weakness PROCEDURE: 2 view chest COMPARISON: 02/20/2013 FINDINGS: The lungs are clear. The cardiomediastinal silhouette is within normal limits. There are no pleural effusions. There is no pneumothorax suspected. There are multiple healed right rib fract ures. IMPRESSION: 1: NO ACUTE CARDIOPULMONARY DISEASE. Reviewed, dictated and finalized at location A. ORATE SECURITY MANAGER
--- NOTE | ~2021-09-20 | MR_ITS ---
EXAMINATION: MR cervical spine wo/w con DATE: 09/21/2021 12:56 INDICATION: Cervical spine abnormality. Weakness. TECHNIQUE: Magnetic resonance imaging (MRI) of the cervical spine was performed without and with 15 m L MultiHance intravenous contrast. Sequences included sagittal and axial T2-weighted FSE, sagittal T2 -weighted FS FSE, and sagittal and axial T1-weighted FSE. Postcontrast sequences included sagittal an d axial T1-weighted FS FSE. COMPARISON: CT cervical spine 09/20/2021 FINDINGS: There is 2 mm anterolisthesis of C3 on C4 and C4 on C5 and 2 mm retrolisthesis of C5 on C6 and C6 on C7. There is mild chronic anterior wedging of C5, T1, and T3 vertebral bodies. There is mil dly decreased disc height at C3-C4 and severely decreased disc height at C5-C6 and C6-C7. There is in creased T2-weighted signal intensity in the spinal cord at C3-C4. The following disc levels are speci fically discussed: C2-C3: There is a central protrusion. There is mild right and moderate left uncovertebral joint osteo arthritis. There is severe bilateral facet joint osteoarthritis. There is mild right and moderate lef t neural foraminal stenosis. There is mild central canal stenosis. C3-C4: The disc is bulging. There is mild bilateral uncovertebral joint osteoarthritis. There is tito re bilateral facet joint osteoarthritis. There is thickening and calcification of ligamentum flavum. There is contrast enhancement in the soft tissues around the posterior elements, consistent with infl ammation. There is severe bilateral neural foraminal stenosis. There is severe central canal stenosis with ventral and dorsal indentation of the spinal cord and increased T2-weighted signal intensity in the spinal cord. C4-C5: The disc does not extend beyond the endplate margin. There is mild bilateral uncovertebral teja nt osteoarthritis. There is mild right and severe left facet joint osteoarthritis. There is mild righ t and moderate left neural foraminal stenosis. There is mild central canal stenosis. C5-C6: The disc is bulging. There is severe bilateral uncovertebral joint osteoarthritis. There is mi ld right and moderate left facet joint osteoarthritis. There is mild right and moderate left neural f oraminal stenosis. There is mild central canal stenosis with ventral indentation of the spinal cord. C6-C7: The disc is bulging. There is severe bilateral uncovertebral joint osteoarthritis. There is mi ld bilateral facet joint osteoarthritis. There is mild right and moderate left neural foraminal steno sis. There is mild central canal stenosis. C7-T1: The disc does not extend beyond the endplate margin. There is no uncovertebral joint osteoarth ritis. There is mild bilateral facet joint osteoarthritis. There is mild bilateral neural foraminal s tenosis. There is no central canal stenosis. IMPRESSION: 1. Severe cervical spondylosis with spinal cord compression and myelomalacia at C3-C4. Reviewed, dictated and finalized at location B. AURANT GENERAL MANAGER
--- NOTE | ~2021-09-20 | MR_ITS ---
EXAMINATION: MR thoracic spine wo/w con DATE: 09/22/2021 14:42 INDICATION: Weakness. TECHNIQUE: Magnetic resonance imaging (MRI) of the thoracic spine was performed without and with 15 m L MultiHance intravenous contrast. Sequences included sagittal and axial T2-weighted FSE, sagittal T2 -weighted FS FSE, and sagittal and axial T1-weighted FSE. Postcontrast sequences included sagittal an d axial T1-weighted FS FSE. COMPARISON: Thoracic spine CT 09/20/2021 FINDINGS: There is levoscoliosis of lumbar spine. There is mild chronic anterior wedging of T1, T3, a nd T4 vertebral bodies. There are Schmorl's nodes at multiple levels in lower thoracic spine. There i s mildly decreased disc height from T1-T2 through T11-T12. At T2-T3, the disc is bulging with mild ce ntral canal stenosis. At T3-T4, there is a right central extrusion with mild central canal stenosis a nd ventral indentation of the spinal cord. At T8-T9, there is a left central protrusion with mild nica tral canal stenosis. At T11-T12, there is a left central extrusion with mild central canal stenosis. There is multilevel facet joint osteoarthritis, mild at most levels. There is mild neural foraminal s tenosis bilaterally at T1-T2 and T11-T12. The spinal cord signal intensity is normal. IMPRESSION: 1. Mild thoracic spondylosis. Reviewed, dictated and finalized at location B. UREMENT SUPERINTENDENT
--- NOTE | ~2021-09-20 | MR_ITS ---
EXAMINATION: MR brain/brain stem wo/w con DATE: 09/21/2021 12:57 INDICATION: Weakness. Central spinal canal abnormality. TECHNIQUE: Magnetic resonance imaging (MRI) of the brain and brainstem was performed without and with 15 mL MultiHance intravenous contrast. Sequences included sagittal and axial T1-weighted FSE, axial diffusion-weighted FS EPI, axial T2*-weighted GRE, axial T2-weighted FLAIR Propeller, and axial T2-we ighted Propeller. Postcontrast sequences included axial and coronal T1-weighted FSE. Apparent diffusi on coefficient (ADC) maps were created. COMPARISON: Head CT 09/20/2021 FINDINGS: There are scattered areas of nonspecific increased T2-weighted signal intensity in the cere bral white matter, which is within normal limits for the patient's age. There is no intracranial hemo rrhage, acute infarction, or abnormal intracranial mass lesion. The ventricles are normal in size. Th ere is mild mucosal thickening in the paranasal sinuses. The orbits are normal. There is a trace left mastoid effusion. IMPRESSION: 1. Normal aging brain. Reviewed, dictated and finalized at location B. H REELER IMPRESSION: 1. Normal aging brain.
--- NOTE | ~2021-09-20 | CT_ITS ---
EXAMINATION: CT cervical spine wo con DATE: 09/20/2021 15:38 INDICATION: Neck pain TECHNIQUE: Computed tomography (CT) of the cervical spine was performed without intravenous contrast. The dose-length product (DLP) was 458.87 mGy-cm. Automated exposure control and iterative reconstruc tion technique were employed. COMPARISON: None FINDINGS: There is no fracture. There are 2 mm of anterolisthesis of C4 on C5. There is severe loss o f intervertebral disc space height at C5-6 and C6-7. The vertebral body heights are maintained. The o dontoid is intact. The prevertebral soft tissues are normal. Small degenerative osteophytes project f rom the anterior endplates of multiple vertebral bodies. There is moderate multilevel facet and uncov ertebral joint osteoarthritis. There is mild hyperattenuation in the epidural space anteriorly and po steriorly at the C3-4 level as well as in the interspinous space between the C3 and C4 spinous proces ses. IMPRESSION: 1. Severe cervical spondylosis without acute abnormality. 2. Mild hyperattenuation in the central spinal canal and posteriorly in the interspinous space at C3- 4 of unclear significance. Follow-up MRI is recommended. Reviewed, dictated and finalized at location F. TENANCE SCHEDULER IMPRESSION: 1. Severe cervical spondylosis without acute abnormality. 2. Mild hyperattenuation in the central spinal canal and posteriorly in the int erspinous space at C3-4 of unclear significance. Follow-up MRI is recommended.
--- NOTE | ~2021-09-20 | CT_ITS ---
EXAMINATION: CT thoracic lumbar wo con DATE: 09/20/2021 15:38 INDICATION: Back pain TECHNIQUE: Computed tomography (CT) of the thoracic and lumbar spine was performed without intravenou s contrast. The dose-length product (DLP) was 894.98 mGy-cm. Iterative reconstruction was used. COMPARISON: 04/30/2021, 04/02/2021 FINDINGS: Thoracic spine: There is a healing, subacute fracture in the posteromedial right 11th rib. There is n o acute fracture, dislocation, or subluxation of the thoracic spine. There is an unchanged mild compr ession deformity anteriorly at T3. The vertebral body heights are otherwise normal. There is mild los s of intervertebral disc space height at a few levels in the thoracic spine. The prevertebral soft ti ssues are normal. Lumbar spine: There are 2 mm of retrolisthesis of L5 on S1. No lumbar spine fracture is identified. T he vertebral body heights are maintained. There is severe loss of intervertebral disc space height fr om L2-3 through L5-S1. The prevertebral soft tissues are normal. IMPRESSION: 1. Healing subacute fracture in the posteromedial aspect of the right 11th rib. 2. Mild thoracic spondylosis. 3. Severe lumbar spondylosis. Reviewed, dictated and finalized at location F. TECHNICAL ARCHITECT
--- NOTE | 2021-09-20 10:35 | ED.WEAKNESS ---
HPI - Weakness General Chief complaint: Weakness Stated complaint: legs are weak Time Seen by Provider: 09/20/21 10:35 Source: patient Mode of arrival: wheelchair Limitations: no limitations History of Present Illness HPI Narrative: Patient is a 71-year-old male presenting for evaluation of lower extremity weakness. Patient states that he has been hunting for the past 29 days and returned home on . Patient noticed that while he was deer hunting, he was having increasing weakness in his bilateral lower extremities and tingling in his hands. Patient states that he woke up and tried to ambulate, took 2 steps and then promptly fell forward, stating that his legs gave out. He denies any fever, chills. Patient states that he did strike his head on the floor with the fall. He denies any loss of conscious. Patient states he has a pretty significant skin tear to his right upper extremity. Patient reports some bruising of the right flank. Patient denies any current pain. He denies headache pain, vision changes, difficulty with speech, difficulty with swallowing, upper extremity weakness. He does report bilateral lower extremity weakness but denies any focal numbness. States that he is a daily drinker, drinks 6 beers daily for many years. Denies any history of alcohol withdrawal. States that he has been able to tolerate oral intake without difficulty, states that he feels like he is eating enough. He denies any fever, chills, chest pain or shortness of breath. No rhinorrhea or congestion. Denies recent sick contacts. Denies dark or tarry stools. Denies frequency, dysuria, hematuria. Patient states that because he cannot ambulate he does not feel safe at home. is not able to fully lift the patient. Related Data Home Medications Medication Instructions Recorded Confirmed aspirin 81 mg tablet,delayed 81 mg PO DAILY 11/16/19 04/23/21 release diazepam 2 mg tablet 2 mg PO Q6H PRN tablet 11/16/19 04/23/21 naproxen 500 mg tablet 500 mg PO BID PRN 11/16/19 04/23/21 atorvastatin 20 mg PO DAILY 04/03/21 04/23/21 budesonide 3 mg PO DAILY 04/03/21 04/23/21 dextromethorphan-guaifenesin 1 tablet PO Q12H PRN 04/03/21 04/23/21 fexofenadine 180 mg PO DAILY PRN 04/03/21 04/23/21 Allergies Allergy/AdvReac Type Severity Reaction Status Date / Time pseudoephedrine Allergy Mild RAPID Verified 04/22/21 09:50 [From [facility]] HEART BEAT Review of Systems Review of Systems: CONSTITUTIONAL: Denies fever, chills, or sweats. EYES: Denies visual changes, redness, or discharge. ENT: Denies rhinorrhea, congestion, sore throat, or otalgia. CARDIOVASCULAR: Denies chest pain, palpitations, or edema. RESPIRATORY: Denies cough or dyspnea. GASTROINTESTINAL: Denies abdominal pain, nausea, vomiting, or diarrhea. GENITOURINARY: Denies dysuria or hematuria. SKIN: Reports skin tear to right upper upper extremity, reports bruising to right chest wall MUSCULOSKELETAL: Denies back pain, joint pain, or myalgia. NEUROLOGIC: Denies headache, reports tingling sensation in bilateral fingers, reports lower extremity weakness PMFSH Past Medical History Medical History Essential (primary) hypertension GERD (gastroesophageal reflux disease) History of colon polyps Mixed hyperlipidemia Surgical History Surgical History H/O transurethral resection of prostate History of laparoscopic appendectomy 04/02/2021 History of lumbar laminectomy S/P TURP Status post trigger finger release Family History Family History Father Acute myocardial infarction Mother Family history of lung cancer Sibling Family history of malignant neoplasm of brain Social History Social History Smoking packs per day: 1.2 Smoking cigarettes p
--- NOTE | 2021-09-20 10:50 | ECG_ITS ---
Measurements Intervals N[place] Rate: 67 P: 68 IL: 196 QRS: 241 QRSD: 161 T: 39 QT: 430 QTc: 455 Interpretive Statements SINUS RHYTHM RIGHT AXIS DEVIATION RIGHT BUNDLE BRANCH BLOCK ANTEROSEPTAL INFARCT, AGE INDETERMINATE BASELINE ARTIFACT- V3 ABNORMAL ECG Electronically Signed On 09-20-2021 16:02:19 GSE MECHANIC by Stef Sotelo D.O.
[2021-09-20 11:08] LABS: Basophils Absolute Auto 0.1 K/mm3 (0.0-0.1); Eosinophils Absolute Auto 0.5 K/mm3 (0-0.3); Eosinophils Percent Auto 5.3 % (0-4.4); Hematocrit 38.9 % (42.0-52.0); Hemoglobin 13.1 g/dL (14.0-18.0); Immature Granulocyte Absolute 0.03 K/mm3 (0.00-0.031); Immature Granulocyte Percent A 0.3 % (0-0.5); Lymphocytes Absolute Auto 1.86 K/mm3 (0.9-3.2); Lymphocytes Percent Auto 18.2 % (18.3-44.2); Mean Corpuscular HGB Conc 33.7 g/dl (32-36); Mean Corpuscular Hemoglobin 34.8 pg (26-34); Mean Corpuscular Volume 103.5 fl (80-100); Mean Platelet Volume 9.2 fl (7.4-10.4); Monocytes Absolute Auto 0.6 K/mm3 (0.1-0.6); Monocytes Percent Auto 6.1 % (2.6-8.5); Neutrophils Absolute Auto 7.1 K/mm3 (1.3-6.7); Neutrophils Percent Auto 69.1 % (45.5-73.1); Platelet Count Result 277 k/mm3 (150-375); Red Blood Count 3.76 M/mm3 (4.6-6.20); Red Cell Distribution Width 14.2 % (11.5-14.5); White Blood Count 10.2 K/mm3 (4.5-10.0)
[2021-09-20] MEDS: SODIUM CHLORIDE 0.9% IV 500 ML 999 ML IV CONT (11:16)
[2021-09-20 11:23] LABS: Alanine Aminotransferase 28 U/L (4-50); Albumin Level 4.4 g/dL (3.5-5.1); Alkaline Phosphatase 125 U/L (38-126); Anion Gap 7 mmol/L (8-16); Aspartate Amino Transferase 41 U/L (17-59); Bilirubin,Total 0.5 mg/dL (0.2-1.3); Blood Urea Nitrogen 18 mg/dL (9-20); Calcium 9.7 mg/dL (8.4-10.2); Carbon Dioxide 30 mmol/L (22-30); Chloride 99 mmol/L (98-107); Estimated CRCL calculation 67 ml/min; Estimated Glomerular Filt Rate > 60; Glucose 101 mg/dL (65-110); Potassium 4.5 mmol/L (3.4-5.0); Sodium 136 mmol/L (137-145)
[2021-09-20 11:35] LABS: Troponin I < 0.012 ng/mL (0.000-0.034)
[2021-09-20 11:49] LABS: Add Urine Microscopic? YES; Appearance Urine Clear (Clear); Bilirubin Urine Negative (Negative); Blood Urine Negative (Negative); Color Urine Yellow (Yellow); Glucose Urine UA Negative (Negative); Ketones Urine Negative (Negative); Leukocyte Esterase Ur Negative LEU/UL (Negative); Nitrate Urine Negative (Negative); Protein Urine Negative (Negative); Specific Grav Ur 1.015 (1.001-1.035); Squamous Epithelial Cell Urine Rare /hpf (Few); Urobilinogen Urine Negative mg/dL (<2.0); WBC Urine 0-3 /hpf
--- NOTE | 2021-09-20 13:10 | PC.NURSE ---
Called lab to add on CK, C-Reactive Prot, B12, ESR, Folate, RBC
[2021-09-20] MEDS: THIAMINE HCL 100 MG TABLET PO (13:21)
[2021-09-20] MEDS: FOLIC ACID 1 MG TABLET PO (13:21)
[2021-09-20 13:53] LABS: Erythrocyte Sedimentation Rate 30 mm/hr (0-20)
[2021-09-20 15:22] LABS: SARS-CoV-2 RNA PCR Negative
[2021-09-20 15:23] LABS: CRP 1.1 mg/dL (<1.0); Creatine Kinase 75 U/L (55-170)
[2021-09-20] MEDS: NICOTINE (*PBKC) 21 MG PATCH 1 PATCH TRANSDERM (16:45)
[2021-09-20] MEDS: ACETAMINOPHEN 325 MG TABLET 650 MG PO ×2 (16:45→22:50)
--- NOTE | 2021-09-20 17:00 | PM.IMHP ---
H&P: HPI History of Present Illness Date/Time: 09/20/21 17:00 Chief Complaint: Leg weakness. Narrative: This is a 71-year-old male smoker with chronic back pain, hypertension, and hyperlipidemia who presented to the emergency department earlier today from home for evaluation of leg weakness. The patient endorses chronic low back pain related to severe lumbar spondylosis which he has been managing at home with celecoxib and cyclobenzaprine. He has occasional radiculopathy, mainly in the right lower extremity, but his symptoms seem to have gotten much worse over the past 2 weeks. He has been deer hunting in [facility] and has been able to walk longer distances and get up and down the deer stands without issue though occasionally he noticed his legs, especially the right, seemed to be a bit hyperreflexic causing balance issues. He fell a couple of times in the [place] and per patient report these were mechanical falls, tripping over branches or in holes, and he did not sustain any injuries in the falls. Also of note, he reports chronic albeit mild tingling in the upper extremities, mostly in the hands, that has been ongoing for at least a year if not longer. Carpal and cubital tunnel releases done last May unfortunately provided him with no benefit. While hunting over the last week he has also noticed increasing paraesthesias and weakness in his hands and he has been having dexterity issues, for instance he missed several shots hunting which is unusual for him. He also has difficulties using his fingers to pick things up from the table. Three days ago he got up to use the restroom and he reports that his right leg gave out, causing him to fall forward and hit his right side on a desk before striking his head. He has a pretty significant bruise on the right flank and sustained a large skin tear to the right forearm which his has been caring for. Today he felt very unsafe trying to ambulate and he felt it would be best to come in for evaluation. He denies loss of consciousness in these falls. Per patient report, the falls that he had while deer hunting were of mild and caused no injuries. He denies saddle anesthesia. He has occasional issues with urinary incontinence from a previous TURP and that is unchanged. No numbness of the extremities. Review of Systems Review of Systems: Twelve systems were reviewed. No fever, chills, or sweats. No recent cold or flu symptoms. He denies sick contacts. No recent vaccinations. No history of stroke, polymyalgia rheumatica, or Guillain-Houston syndrome. Appetite has been good. He denies nausea and vomiting. No dysarthria or dysphagia. He drinks about 5 to 6 beers a day and he has never had signs or symptoms of alcohol withdrawal. Except as documented, all other systems were reviewed and are negative. [facility] Past Medical History Medical History Benign prostatic hyperplasia Chronic back pain Cigarette smoker COVID-19 (09/29/20) Daily consumption of alcohol Essential (primary) hypertension Gastroesophageal reflux disease Generalized anxiety disorder History of colon polyps Hypertension Mixed hyperlipidemia Spondylosis Tobacco use Surgical History Surgical History History of colonoscopy with polypectomy History of laparoscopic appendectomy (04/02/21) History of lumbar laminectomy History of transurethral resection of prostate Status post trigger finger release Family History Family History Father Acute myocardial infarction Mother Family history of lung cancer Sibling Family history of malignant neoplasm of brain Social History Social History Social History: Surrogate decision maker: Michelle Tatum, spouse. Code status: Full code. Smoking packs per day: 1.2 Smoking cigarettes per day: 24.0 Years smoked: 55 Smok
[2021-09-20 18:06] LABS: Glucose Point of Care 98 mg/dl (65-105)
[2021-09-20] MEDS: HYDROcodone/acetaminophen (*CRX) 5-325 MG TABLET 1 TAB PO (21:38)
[2021-09-20] MEDS: CYCLOBENZAPRINE HCL 10 MG TABLET PO (21:39)
--- NOTE | 2021-09-20 22:31 | ADMGEN ---
This patient, Javan Tatum, was admitted to Medical Room 344-01. Patient/family oriented to hospital policies and general routines including ID bracelet, bed and alarms, visiting hours, pain management, procedures, bathroom and other care routines, personal items, smoking policy, room service/diet, and visiting hours. Information on how to activate the Rapid Response Team has been discussed. Patient/Family are encouraged to report perceived risks to care and to ask questions if they do not understand what they are told or what they should do.
[2021-09-20 22:58] LABS: Glucose Point of Care 111 mg/dl (65-105)
[2021-09-21] VITALS: BP 152/78
[2021-09-21] MEDS: HYDROcodone/acetaminophen (*CRX) 5-325 MG TABLET 1 TAB PO ×3 (03:15→20:50)
[2021-09-21] MEDS: ALPRAZolam (*CRX) 0.5 MG TABLET 1 MG PO ×2 (03:16→20:02)
[2021-09-21 04:00] VITALS: BP 152/78
[2021-09-21 06:00] VITALS: BP 126/66; PULSE 60; RESP 18; TEMP 36.6; O2SAT 99
[2021-09-21 06:37] LABS: Basophils Absolute Auto 0.1 K/mm3 (0.0-0.1); Basophils Percent Auto 1.1 % (0.2-1.2); Eosinophils Absolute Auto 0.8 K/mm3 (0-0.3); Eosinophils Percent Auto 10.2 % (0-4.4); Hematocrit 36.5 % (42.0-52.0); Hemoglobin 12.5 g/dL (14.0-18.0); Immature Granulocyte Absolute 0.02 K/mm3 (0.00-0.031); Immature Granulocyte Percent A 0.3 % (0-0.5); Lymphocytes Absolute Auto 2.46 K/mm3 (0.9-3.2); Mean Corpuscular HGB Conc 34.2 g/dl (32-36); Mean Corpuscular Hemoglobin 34.4 pg (26-34); Mean Corpuscular Volume 100.6 fl (80-100); Mean Platelet Volume 9.3 fl (7.4-10.4); Monocytes Absolute Auto 0.6 K/mm3 (0.1-0.6); Monocytes Percent Auto 8.4 % (2.6-8.5); Neutrophils Absolute Auto 3.5 K/mm3 (1.3-6.7); Platelet Count Result 269 k/mm3 (150-375); Red Blood Count 3.63 M/mm3 (4.6-6.20); Red Cell Distribution Width 13.9 % (11.5-14.5); White Blood Count 7.5 K/mm3 (4.5-10.0)
[2021-09-21 06:54] LABS: Alanine Aminotransferase 25 U/L (4-50); Albumin Level 3.9 g/dL (3.5-5.1); Alkaline Phosphatase 108 U/L (38-126); Anion Gap 4 mmol/L (8-16); Aspartate Amino Transferase 36 U/L (17-59); Bilirubin,Total 0.5 mg/dL (0.2-1.3); Blood Urea Nitrogen 15 mg/dL (9-20); Calcium 9.1 mg/dL (8.4-10.2); Carbon Dioxide 28 mmol/L (22-30); Chloride 101 mmol/L (98-107); Estimated CRCL calculation 75 ml/min; Estimated Glomerular Filt Rate > 60; Glucose 87 mg/dL (65-110); Magnesium 1.9 mg/dL (1.6-2.3); Potassium 3.9 mmol/L (3.4-5.0); Sodium 133 mmol/L (137-145)
[2021-09-21 08:09] LABS: Glucose Point of Care 94 mg/dl (65-105)
[2021-09-21] MEDS: FOLIC ACID 1 MG TABLET PO (08:18)
[2021-09-21] MEDS: ATORVASTATIN 20 MG TABLET PO (08:18)
[2021-09-21] MEDS: CYANOCOBALAMIN 1,000 MCG TABLET 1000 MCG PO (08:18)
[2021-09-21] MEDS: CELECOXIB 200 MG CAPSULE PO ×2 (08:18→16:45)
[2021-09-21] MEDS: ASPIRIN 81 MG ENTERIC TABLET PO (08:19)
[2021-09-21] MEDS: THIAMINE HCL 100 MG TABLET PO (08:19)
[2021-09-21] MEDS: lisinopriL 20 MG TABLET PO (08:19)
[2021-09-21] MEDS: hydroCHLOROthiazide 12.5 MG CAPSULE PO (08:19)
[2021-09-21] MEDS: SERTRALINE HCL 50 MG TABLET BY MOUTH (08:20)
[2021-09-21] MEDS: CYCLOBENZAPRINE HCL 10 MG TABLET PO (08:23)
[2021-09-21 09:24] LABS: Free T4 Free Thyroxine Reflex 0.92 ng/dL (0.78-2.19)
--- NOTE | 2021-09-21 10:08 | WPDNEURCNPN ---
Assessment and Plan Additional Plan considering that patient has undergone surgery on the left upper extremity for the carpal tunnel as well as left ulnar neuropathy and considering the CT scan of cervical spine is not indicative of the cervical spinal stenosis but still he is having difficulties in ambulation we will need to obtain the MRI of cervical and thoracic spine before any further investigations are consider Consult date: 09/21/21 HPI: Javan Tatum is a 71 year old maleAdmitted to the hospital for the complaints of chronic back pain, hypertension, hyperlipidemia and with weakness of the lower extremities his chronic back pain has gotten worse over the last several months reportedly he was deer hunting in [facility] and had been able to walk longer distances and get up and down the deer stand without any issue though occasionally he noted his lower extremities weakness particularly on the right side and he fell couple of times in the warts which were mechanical falls he has undergone carpal tunnel and cubital tunnel evaluation and has undergone surgery, he has ongoing history of 24 cigarette smoking per day with the year's smoke 55 his smoking pack years of 66 current alcohol intake or there is 35 drinks per week , outpatient medications include the aspirin 81 mg daily atorvastatin 20 mg daily alprazolam 1 mg HS p.r.n. sertraline 50 mg daily and cyclobenzaprine 10 mg daily in addition to other medications, his previous evaluation includes severe spondylosis of cervical and thoracic spine and CT of the abdomen and pelvis documented non displaced right 7th rib fracture with no retroperitoneal or perinephric hematoma in addition to coli lithiasis, x-ray chest is negative Review of Systems Review of Systems: All systems reviewed & are unremarkable except as noted in HPI and below PMFSH Past Medical History Medical History Benign prostatic hyperplasia Chronic back pain Cigarette smoker COVID-19 (09/29/20) Daily consumption of alcohol Essential (primary) hypertension Gastroesophageal reflux disease Generalized anxiety disorder History of colon polyps Hypertension Mixed hyperlipidemia Spondylosis Tobacco use Surgical History Surgical History History of colonoscopy with polypectomy History of laparoscopic appendectomy (04/02/21) History of lumbar laminectomy History of transurethral resection of prostate Status post trigger finger release Family History Family History Father Acute myocardial infarction Mother Family history of lung cancer Sibling Family history of malignant neoplasm of brain Social History Social History Social History: Surrogate decision maker: Michelle Tatum, spouse. Code status: Full code. Smoking packs per day: 1.2 Smoking cigarettes per day: 24.0 Smoking status: Current every day smoker Tobacco type: cigarettes Alcohol intake: current Drinks per week: 35 Alcohol use details: 5-6 beers/day Substance use: current Substance use type: marijuana Additional living arrangements comments: Resides in [place] with his . Additional occupation/education comments: Retired. Spiritual care concerns: No Meds Home Medications and Allergies Home Medications Medication Instructions Recorded Confirmed Type aspirin 81 mg tablet,delayed 81 mg PO DAILY 11/16/19 09/20/21 History release atorvastatin 20 mg PO DAILY 04/03/21 09/20/21 History lisinopril 20 See Rx Instructions .ROUTE 05/19/21 09/20/21 Rx mg-hydrochlorothiazide 12.5 mg .COMPLEX #90 tablet tablet sertraline 50 mg tablet See Rx Instructions .ROUTE 05/25/21 09/20/21 Rx .COMPLEX #90 tablet cyclobenzaprine 10 mg tablet See Rx Instructions .ROUTE 07/14/21 09/20/21 Rx .COMPLEX #60 tablet hydrocodone 5 mg-acetaminophen 325 1 tablet
--- NOTE | 2021-09-21 10:24 | WPDNEURCNPN ---
Assessment and Plan Additional Plan all previous records have been reviewed patient does have history of underlying neuropathy has undergone the release the pressure points but just for the sake of the confirmation we can obtain the MRI of cervical spine to make sure [place] not skipping cervical spinal still accompanied by the underlying neuropathy Consult date: 09/21/21 HPI: Javan Tatum is a 71 year old male [facility] Past Medical History Medical History Benign prostatic hyperplasia Chronic back pain Cigarette smoker COVID-19 (09/29/20) Daily consumption of alcohol Essential (primary) hypertension Gastroesophageal reflux disease Generalized anxiety disorder History of colon polyps Hypertension Mixed hyperlipidemia Spondylosis Tobacco use Surgical History Surgical History History of colonoscopy with polypectomy History of laparoscopic appendectomy (04/02/21) History of lumbar laminectomy History of transurethral resection of prostate Status post trigger finger release Family History Family History Father Acute myocardial infarction Mother Family history of lung cancer Sibling Family history of malignant neoplasm of brain Social History Social History Social History: Surrogate decision maker: Michelle Tatum, spouse. Code status: Full code. Smoking packs per day: 1.2 Smoking cigarettes per day: 24.0 Smoking status: Current every day smoker Tobacco type: cigarettes Alcohol intake: current Drinks per week: 35 Alcohol use details: 5-6 beers/day Substance use: current Substance use type: marijuana Additional living arrangements comments: Resides in [place] with his . Additional occupation/education comments: Retired. Spiritual care concerns: No Meds Home Medications and Allergies Home Medications Medication Instructions Recorded Confirmed Type aspirin 81 mg tablet,delayed 81 mg PO DAILY 11/16/19 09/20/21 History release atorvastatin 20 mg PO DAILY 04/03/21 09/20/21 History lisinopril 20 See Rx Instructions .ROUTE 05/19/21 09/20/21 Rx mg-hydrochlorothiazide 12.5 mg .COMPLEX #90 tablet tablet sertraline 50 mg tablet See Rx Instructions .ROUTE 05/25/21 09/20/21 Rx .COMPLEX #90 tablet cyclobenzaprine 10 mg tablet See Rx Instructions .ROUTE 07/14/21 09/20/21 Rx .COMPLEX #60 tablet hydrocodone 5 mg-acetaminophen 325 1 tablet PO Q6H PRN #30 tablet 09/09/21 09/20/21 Rx mg tablet alprazolam [Xanax] 1 mg PO QHS PRN 09/20/21 09/20/21 History celecoxib [Celebrex] 200 mg PO BID 09/20/21 09/20/21 History trazodone 50 mg PO HS 09/20/21 09/20/21 History Allergies Allergy/AdvReac Type Severity Reaction Status Date / Time pseudoephedrine Allergy Mild RAPID Verified 04/22/21 09:50 [From [facility]] HEART BEAT Vital Signs Vital Signs - 24 hr 09/20/21 10:31 09/20/21 10:49 09/20/21 11:06 Temperature 36.6 C Pulse Rate 70 70 Respiratory Rate 16 16 Blood Pressure 149/69 H Pulse Oximetry 100 100 100 09/20/21 11:15 09/20/21 11:30 09/20/21 11:45 Temperature Pulse Rate 70 71 64 Respiratory Rate 20 24 H 18 Blood Pressure Pulse Oximetry 100 100 100 09/20/21 12:19 09/20/21 12:32 09/20/21 12:51 Temperature Pulse Rate 70 69 67 Respiratory Rate 17 15 15 Blood Pressure Pulse Oximetry 100 100 09/20/21 13:50 09/20/21 14:00 09/20/21 14:25 Temperature Pulse Rate 70 73 66 Respiratory Rate 18 11 L 16 Blood Pressure 152/78 H Pulse Oximetry 100 100 98 09/20/21 22:45 09/21/21 00:00 09/21/21 04:00 Temperature Pulse Rate 66 Respiratory Rate 16 Blood Pressure 152/78 H 152/78 H Pulse Oximetry 98 09/21/21 06:00 Temperature 36.6 C Pulse Rate 60 Respiratory Rate 18 Blood Pressure 126/66 Pulse Oximetry 99 Results Labs CBC & Chem 7:
[2021-09-21 10:27] LABS: Total Triiodothyronine (T3) 1.02 NG/ML (0.97-1.69)
[2021-09-21] MEDS: NICOTINE (*PBKC) 21 MG PATCH 1 PATCH TRANSDERM (10:48)
[2021-09-21 11:53] LABS: Glucose Point of Care 108 mg/dl (65-105)
--- NOTE | 2021-09-21 12:54 | PM.IMPN ---
Progress Note: A&P Assessment and Plan (1) Weakness: Code(s): R53.1 - Weakness Status: Acute Assessment and Plan: Differential diagnosis is broad but at this time I am most concerned for a neurologic/impingement process given severe spondylosis in the cervical and lumbar spine as well as findings of mild hyperattenuation in the central spinal canal and interspinous space at C3-C4. Patient has had two prior back surgeries on Lumbar spine in 1994 and 1996, one of which was completed at [facility] MRI has been ordered for further evaluation, two MRIs will be completed today, the other 2 MRIs will be completed tomorrow Dr. Cain was consulted by the ED physician, and his input is appreciated. Denies any tick bites, toxic exposures, vaccinations, and medication changes. There is no evidence to suggest cauda equinus syndrome at this time. CK and CRP are within normal limits. Patient instructed to alert us if any change in symptoms. No underlying infection noted with urine, CXR or abd/pelvis CT PT/OT have been ordered. COVID PCR negative Continue monitoring. (2) Fall from ground level: Code(s): W18.30XA - Fall on same level, unspecified, initial encounter Status: Acute Assessment and Plan: Patient reports that his right leg ?gave out? when he got up to ambulate on , 09/17/21. CT shows a subacute fracture in the posterior medial aspect of the right 11th rib. He also has a fairly large right forearm skin tear that is currently wrapped at this time and wound nurses have been consulted. Initiate fall precautions. Further work up in process as to the cause (3) Spondylosis: Code(s): M47.9 - Spondylosis, unspecified Status: Acute Assessment and Plan: Flexeril and hydrocodone available as needed for chronic back pain. Currently not having any worsening pain at this time (4) Chronic back pain: Code(s): M54.9 - Dorsalgia, unspecified; G89.29 - Other chronic pain Status: Acute Assessment and Plan: Continue Flexeril and hydrocodone as needed. (5) Cigarette smoker: Code(s): F17.210 - Nicotine dependence, cigarettes, uncomplicated Status: Acute Assessment and Plan: Nicotine patch is available for the patient if needed. (6) Daily consumption of alcohol: Code(s): Z78.9 - Other specified health status Status: Acute Assessment and Plan: Patient denies ever having signs or symptoms of alcohol withdrawal however I will initiate CIWA protocol and monitor closely. CIWA has been normal. Will check for one more day to ensure there are no withdrawal symptoms. (7) Hypertension: Code(s): I10 - Essential (primary) hypertension Status: Acute Assessment and Plan: Blood pressures stable at 126/66. Continue antihypertensives and monitor daily. (8) Macrocytic anemia: Code(s): D53.9 - Nutritional anemia, unspecified Status: Acute Assessment and Plan: Stable H&H of 12.5, hematocrit 36%. MCV elevated 100. TSH on arrival 09/20/2021 was normal. Vitamin B12 was low side of normal at 363. I did start PO Cyanocobalamin 1000 mg daily to see if this helps with his symptoms. Continue monitoring. No signs of acute bleeding. Time Spent With Patient Time with patient: 25 - 35 minutes Subjective Date/time seen: 09/21/21 12:54 Interval history: Date of service 09/21/2021: Patient reports feeling the same today. Not having any new or worsening symptoms. Still has some intermittent numbness and tingling radiating down his arms into his hand bilaterally. Associated weakness with picking things up and reports having no control over his hands. Reports intermittent sharp shooting pains down his bilateral legs at times. He denies any fever, chills, chest pain, shortness of breath, change was chronic cough, headache, lightheadedness, dizziness, vision changes,
[2021-09-21 14:40] VITALS: BP 130/50; PULSE 68; RESP 18; TEMP 36.3; O2SAT 99
[2021-09-21 16:36] LABS: Glucose Point of Care 83 mg/dl (65-105)
[2021-09-21 20:00] VITALS: BP 135/60
[2021-09-21] MEDS: traZODone HCL 50 MG TABLET PO (20:00)
[2021-09-21 20:05] VITALS: BP 135/60; PULSE 58; RESP 16; TEMP 36.6; O2SAT 97
[2021-09-22 00:31] LABS: Glucose Point of Care 149 mg/dl (65-105)
[2021-09-22 04:00] VITALS: BP 135/60
[2021-09-22 05:38] VITALS: BP 125/59; PULSE 58; RESP 20; TEMP 36.6; O2SAT 97
[2021-09-22 05:39] LABS: Glucose Point of Care 106 mg/dl (65-105)
[2021-09-22 05:58] LABS: Hematocrit 37.6 % (42.0-52.0); Mean Corpuscular HGB Conc 34.6 g/dl (32-36); Mean Corpuscular Hemoglobin 35.5 pg (26-34); Mean Corpuscular Volume 102.7 fl (80-100); Mean Platelet Volume 9.4 fl (7.4-10.4); Platelet Count Result 250 k/mm3 (150-375); Red Blood Count 3.66 M/mm3 (4.6-6.20); Red Cell Distribution Width 13.7 % (11.5-14.5); White Blood Count 7.7 K/mm3 (4.5-10.0)
[2021-09-22 06:13] LABS: Anion Gap 6 mmol/L (8-16); Blood Urea Nitrogen 20 mg/dL (9-20); Calcium 9.1 mg/dL (8.4-10.2); Carbon Dioxide 28 mmol/L (22-30); Chloride 100 mmol/L (98-107); Estimated CRCL calculation 67 ml/min; Estimated Glomerular Filt Rate > 60; Glucose 99 mg/dL (65-110); Potassium 3.9 mmol/L (3.4-5.0); Sodium 134 mmol/L (137-145)
[2021-09-22 07:10] LABS: Folic Acid 19.7 ng/mL (2.76->20)
[2021-09-22] MEDS: CYANOCOBALAMIN 1,000 MCG TABLET 1000 MCG PO (08:15)
[2021-09-22] MEDS: SERTRALINE HCL 50 MG TABLET BY MOUTH (08:15)
[2021-09-22] MEDS: ATORVASTATIN 20 MG TABLET PO (08:15)
[2021-09-22] MEDS: FOLIC ACID 1 MG TABLET PO (08:15)
[2021-09-22] MEDS: CELECOXIB 200 MG CAPSULE PO ×2 (08:15→17:01)
[2021-09-22] MEDS: lisinopriL 20 MG TABLET PO (08:15)
[2021-09-22] MEDS: THIAMINE HCL 100 MG TABLET PO (08:15)
[2021-09-22] MEDS: ASPIRIN 81 MG ENTERIC TABLET PO (08:15)
[2021-09-22] MEDS: hydroCHLOROthiazide 12.5 MG CAPSULE PO (08:15)
[2021-09-22 11:55] LABS: Glucose Point of Care 96 mg/dl (65-105)
--- NOTE | 2021-09-22 13:02 | WPDNEUROPN ---
Progress Note: A&P Additional Plan will benefit from the neurosurgical consultation intervention followed by the physical therapy Subjective Date/time seen: 09/22/21 13:02 ongoing history of underlying neuropathy, history of left ulnar nerve transposition and left carpal tunnel release, MRI of cervical spine obtained with superimposed cervical myelopathy and revealed severe cervical spondylosis with spinal cord compression and myelomalacia at C3 and 4, the MRI of the brain is normal Review of Systems Review of Systems: All systems reviewed & are unremarkable except as noted in HPI and below Exam Narrative: continues to have the same neurological examination Objective Data Vital Signs Vital Signs: Vital Signs - 24 hr 09/21/21 14:40 09/21/21 20:00 09/21/21 20:05 Temperature 36.3 C L 36.6 C Pulse Rate 68 58 L Respiratory Rate 18 16 Blood Pressure 130/50 L 135/60 135/60 Pulse Oximetry 99 97 09/22/21 04:00 09/22/21 05:38 Temperature 36.6 C Pulse Rate 58 L Respiratory Rate 20 Blood Pressure 135/60 125/59 L Pulse Oximetry 97 Intake/Output Intake/Output: Intake & Output 09/19/21 09/20/21 09/21/21 09/22/21 23:59 23:59 23:59 23:59 Intake Total 500 1420 240 Output Total 300 1200 500 Balance 200 220 -260 Meds/Results Medications: Active Medications Generic Name Dose Route Start Last Admin Trade Name Freq PRN Reason Stop Dose Admin Acetaminophen 650 mg 09/20/21 13:06 09/20/21 22:50 Acetaminophen 325 Mg Tablet PO 650 mg Q4H PRN Administration Mild Pain (1-3) or Fever Hydrocodone Bitart/Acetaminophen 1 tab 09/20/21 20:31 09/21/21 20:50 Hydrocodone/Acetaminophen (*Crx) 5-325 Mg Tablet PO 1 tab Q6H PRN Administration Pain Rated 4-6 Hydrocodone Bitart/Acetaminophen 1 tab 09/21/21 00:37 Hydrocodone/Acetaminophen (*Crx) 5-325 Mg Tablet PO Q6H PRN Pain Rated 4-6 Alprazolam 1 mg 09/21/21 00:37 09/21/21 20:02 Alprazolam (*Crx) 0.5 Mg Tablet PO 1 mg HS PRN Administration sleep Aspirin 81 mg 09/21/21 09:00 09/22/21 08:15 Aspirin 81 Mg Enteric Tablet PO 81 mg DAILY ZEE Administration Atorvastatin Calcium 20 mg 09/21/21 09:00 09/22/21 08:15 Atorvastatin 20 Mg Tablet PO 20 mg DAILY ZEE Administration Celecoxib 200 mg 09/21/21 08:00 09/22/21 08:15 Celecoxib 200 Mg Capsule PO 200 mg BIDWM ZEE Administration Chlordiazepoxide HCl 10 mg 09/20/21 16:46 Chlordiazepoxide (*Crx) 10 Mg Capsule PO Q8H PRN Withdrawal symptoms Cyanocobalamin 1,000 mcg 09/21/21 09:00 09/22/21 08:15 Cyanocobalamin 1,000 Mcg Tablet PO 1,000 mcg QAM ZEE Administration Cyclobenzaprine HCl 10 mg 09/20/21 20:31 09/21/21 08:23 Cyclobenzaprine Hcl 10 Mg Tablet PO 10 mg Q8H PRN Administration Muscle Spasm Folic Acid 1 mg 09/21/21 09:00 09/22/21 08:15 Folic Acid 1 Mg Tablet PO 1 mg DAILY ZEE Administration Hydrochlorothiazide 12.5 mg 09/21/21 09:00 09/22/21 08:15 Hydrochlorothiazide 12.5 Mg Capsule PO 12.5 mg QAM ZEE Administration Lisinopril 20 mg 09/21/21 09:00 09/22/21 08:15 Lisinopril 20 Mg Tablet PO 20 mg QAM ZEE Administration Lorazepam 1 mg 09/20/21 16:46 Lorazepam Inj (*Crx) 2 Mg/Ml Vial IV PUSH Q4H PRN Withdrawal AND CIWA > 8 Nicotine 1 patch 09/20/21 13:30 09/21/21 10:48 Nicotine (*Pbkc) 21 Mg Patch TRANSDERM 1 patch QAM [facility] Administration Ondansetron HCl 4 mg 09/20/21 13:06 Ondansetron Inj 4 Mg/2 Ml Vial IV PUSH Q4H PRN Nausea Sertraline HCl 50 mg 09/21/21 09:00 09/22/21 08:15 Sertraline Hcl 50 Mg Tablet BY MOUTH 50 mg DAILY ZEE Administration Thiamine HCl 100 mg 09/21/21 09:00 09/22/21 08:15 Thiamine Hcl 100 Mg Tablet PO 100 mg QAM [facility] Administration Trazodone HCl 50 mg 09/21/21 21:00 09/21/21 20:00 Trazodone Hcl 50 Mg Tablet PO 50 mg HS ZEE Administration Radiolog
[2021-09-22 14:58] VITALS: BP 123/67; PULSE 69; RESP 14; TEMP 37.1; O2SAT 98
[2021-09-22] MEDS: NICOTINE (*PBKC) 21 MG PATCH 1 PATCH TRANSDERM (15:00)
--- NOTE | 2021-09-22 15:51 | PM.IMPN ---
Progress Note: A&P Assessment and Plan (1) Cervical spinal cord compression: Code(s): G95.20 - Unspecified cord compression Status: Acute Assessment and Plan: -MRI of the cervical spine shows severe cervical spondylosis with spinal cord compression and myelomalacia at C3-C4 -Pt w/ decreased sensation in BUE -On exam has 5/5 equal strength BUE -complains of loss of fine motor skills, dropping things -consulted [facility] ortho spine physician Dr. Kraft and had at length discussion. Ultimately patient needs to be evaluated by neurosurgery for possible decompression, but this is a chronic progressive issue and it does not need to be done emergently. Dr. Kraft states patient can be seen in clinic this week on or Tuesday by Dr. Garland Fernandez. His preference is to have patient transferred to [facility] to be evaluated, however there are no beds available. I also spoke w/ Josr, Linsey, and Dominique who are all full without any available beds. T spine and L spine MRI are still pending. Pt is on waitlist at [facility] and [facility]. If no bed by tomorrow, patient will be discharged home to follow up in ortho spine clinic on . Spoke w/ hospitalist Dr. Ashton at [facility] who accepts transfer pending bed availability. -Dr. Kraft also recommends soft cervical collar to be worn whenever patient is ambulatory or active. This was placed. He states this is not necessary when lying in bed or sitting at rest. (2) Weakness: Code(s): R53.1 - Weakness Status: Acute Assessment and Plan: Likely secondary to spinal cord compression noted on MRI. Hx of two prior back surgeries on Lumbar spine in 1994 and 1996. MRI T spine and L spine pending Dr. Cain neurology was consulted by the ED physician who agrees pt needs to follow up with neurosurgery Denies any tick bites, toxic exposures, vaccinations, and medication changes. There is no evidence to suggest cauda equinus syndrome at this time. CK and CRP are within normal limits. Patient instructed to alert us if any change in symptoms. No underlying infection noted with urine, CXR or abd/pelvis CT PT/OT have been ordered. COVID PCR negative See above for neurosurgery plan (3) Fall from ground level: Code(s): W18.30XA - Fall on same level, unspecified, initial encounter Status: Acute Assessment and Plan: Patient reports that his right leg ?gave out? when he got up to ambulate on , 09/17/21. CT shows a subacute fracture in the posterior medial aspect of the right 11th rib. He also has a fairly large right forearm skin tear that is currently wrapped at this time and wound nurses have been consulted. Initiate fall precautions. Further work up in process as to the cause (4) Spondylosis: Code(s): M47.9 - Spondylosis, unspecified Status: Acute Assessment and Plan: Flexeril and hydrocodone available as needed for chronic back pain. Currently not having any worsening pain at this time (5) Chronic back pain: Code(s): M54.9 - Dorsalgia, unspecified; G89.29 - Other chronic pain Status: Acute Assessment and Plan: Continue Flexeril and hydrocodone as needed. (6) Cigarette smoker: Code(s): F17.210 - Nicotine dependence, cigarettes, uncomplicated Status: Acute Assessment and Plan: Nicotine patch is available for the patient if needed. (7) Daily consumption of alcohol: Code(s): Z78.9 - Other specified health status Status: Acute Assessment and Plan: Patient denies ever having signs or symptoms of alcohol withdrawal however I will initiate CIWA protocol and monitor closely. CIWA has been normal. Will check for one more day to ensure there are no withdrawal symptoms. (8) Hypertension: Code(s): I10 - Essential (primary) hypertension Status: Acute Assessment and Plan: Blood pressures stable at 123/67 Continue antihypertensives
[2021-09-22] MEDS: HYDROcodone/acetaminophen (*CRX) 5-325 MG TABLET 1 TAB PO (17:05)
[2021-09-22 20:00] VITALS: BP 131/60; PULSE 64; RESP 16; O2SAT 97
[2021-09-22] MEDS: traZODone HCL 50 MG TABLET PO (20:13)
[2021-09-22] MEDS: ALPRAZolam (*CRX) 0.5 MG TABLET 1 MG PO (20:13)
[2021-09-22 20:38] VITALS: BP 131/60; PULSE 64; RESP 16; TEMP 36.4; O2SAT 97
[2021-09-22 20:47] LABS: Glucose Point of Care 118 mg/dl (65-105)
[2021-09-23] VITALS: BP 131/60
[2021-09-23 03:15] LABS: Glucose Point of Care 115 mg/dl (65-105)
[2021-09-23 04:00] VITALS: BP 111/63
[2021-09-23 05:01] VITALS: BP 111/63; PULSE 65; RESP 18; TEMP 36.6; O2SAT 100
[2021-09-23] MEDS: HYDROcodone/acetaminophen (*CRX) 5-325 MG TABLET 1 TAB PO (08:09)
[2021-09-23] MEDS: ATORVASTATIN 20 MG TABLET PO (08:10)
[2021-09-23] MEDS: CELECOXIB 200 MG CAPSULE PO (08:10)
[2021-09-23] MEDS: THIAMINE HCL 100 MG TABLET PO (08:10)
[2021-09-23] MEDS: CYANOCOBALAMIN 1,000 MCG TABLET 1000 MCG PO (08:10)
[2021-09-23] MEDS: ASPIRIN 81 MG ENTERIC TABLET PO (08:10)
[2021-09-23] MEDS: SERTRALINE HCL 50 MG TABLET BY MOUTH (08:11)
[2021-09-23] MEDS: NICOTINE (*PBKC) 21 MG PATCH 1 PATCH TRANSDERM (08:11)
[2021-09-23] MEDS: lisinopriL 20 MG TABLET PO (08:11)
[2021-09-23] MEDS: FOLIC ACID 1 MG TABLET PO (08:11)
[2021-09-23] MEDS: hydroCHLOROthiazide 12.5 MG CAPSULE PO (08:11)
--- NOTE | 2021-09-23 10:11 | PM.DS ---
DS: Admitting Diagnosis Discharge Date 09/23/21 Admitting Diagnosis weakness DS: Discharge Diagnosis Discharge Diagnosis (1) Cervical spinal cord compression: Code(s): G95.20 - Unspecified cord compression Status: Acute Assessment and Plan: -MRI of the cervical spine shows severe cervical spondylosis with spinal cord compression and myelomalacia at C3-C4 -Pt reports decreased sensation in BUE, more specifically his hands -On exam has 5/5 equal strength BUE and BLE -complains of loss of fine motor skills of his hands, dropping things -consulted [facility] ortho spine physician Dr. Kraft and had at length discussion. Ultimately patient needs to be evaluated by neurosurgery for possible decompression, but this is a chronic progressive issue and it does not need to be done emergently. Dr. Kraft states patient can be seen in clinic this week on or Tuesday by Dr. Garland Fernandez. His preference is to have patient transferred to [facility] to be evaluated, however there are no beds available. I also spoke w/ Linsey Ovalles, and Dominique who are all full without any available beds. Pt is on waitlist at [facility] and [facility]. Spoke w/ hospitalist Dr. Ashton at [facility] who accepts transfer pending bed availability. -Dr. Kraft also recommends soft cervical collar to be worn whenever patient is ambulatory or active. This was placed. He states this is not necessary when lying in bed or sitting at rest. He also states no steroids are indicated at this time. -As of this morning, there are still no beds available at [facility]. As such, the patient has already made an appt for tomorrow in the clinic with Dr. Fernandez and his preference is to go home and follow up with them tomorrow. He has not had any progression of his symptoms during admission and is able to ambulate with a walker. At this time I feel it is safe to discharge him home where he already has a walker and a wheelchair. He will follow up in clinic tomorrow and was given strict return precautions. (2) Spondylosis: Code(s): M47.9 - Spondylosis, unspecified Status: Acute Assessment and Plan: -Flexeril and hydrocodone given as needed for chronic back pain. -Currently not having any worsening pain at this time -T spine MRI w/ mild spondylosis, no cord compression -L spine MRI w/ severe spondylosis, no cord compression -C spine MRI please see above -Pt stable for discharge at this time. Has follow up with ortho spine tomorrow. (3) Fall from ground level: Code(s): W18.30XA - Fall on same level, unspecified, initial encounter Status: Acute Assessment and Plan: -Patient reports that his right leg ?gave out? when he got up to ambulate on , 09/17/21. CT shows a subacute fracture in the posterior medial aspect of the right 11th rib. He also has a fairly large right forearm skin tear that is currently wrapped at this time and wound nurses have been consulted. Fall precautions initiated -likely due to above -he is ambulating well with the walker at this time, also has wheelchair at home (4) Chronic back pain: Code(s): M54.9 - Dorsalgia, unspecified; G89.29 - Other chronic pain Status: Acute Assessment and Plan: Flexeril and hydrocodone given as needed. (5) Cigarette smoker: Code(s): F17.210 - Nicotine dependence, cigarettes, uncomplicated Status: Acute Assessment and Plan: Nicotine patch was given. Pt requests prescription for nicotine patches. (6) Daily consumption of alcohol: Code(s): Z78.9 - Other specified health status Status: Acute Assessment and Plan: -Patient denies ever having signs or symptoms of alcohol withdrawal. -CIWA has been normal. (7) Hypertension: Code(s): I10 - Essential (primary) hypertension Status: Acute Assessment and Plan: Blood pressures stable Continued antihypertensives and monitored daily. (8) Macrocytic anemia: Co
[2021-09-24 12:04] LABS: Red Blood Cell Folate 900 ng/mL RBC (>280)
== END 2021-09-23 13:20 | disposition home or self-care (01) ==
LOC: ANHED 14:39 → ANH3MEDSUR 17:07 → ANH3MED 21:59
PROVIDERS: Physician Assistant; Admitting Provider Family Medicine; Emergency Provider Emergency Medicine; PCP Family Medicine; Visit Provider Physician Assistant
DX: M50.01 Cervical disc disorder with myelopathy, high cervical region (principal); S22.31XA Fracture of one rib, right side, initial encounter for closed fracture; R53.1 Weakness; S51.811A Laceration without foreign body of right forearm, initial encounter; W18.39XA Other fall on same level, initial encounter; R29.6 Repeated falls; D53.9 Nutritional anemia, unspecified; M47.816 Spondylosis without myelopathy or radiculopathy, lumbar region; M47.814 Spondylosis without myelopathy or radiculopathy, thoracic region; R20.2 Paresthesia of skin; G89.29 Other chronic pain; M54.9 Dorsalgia, unspecified; I10 Essential (primary) hypertension; E78.2 Mixed hyperlipidemia; K21.9 Gastro-esophageal reflux disease without esophagitis; F41.1 Generalized anxiety disorder; Z79.82 Long term (current) use of aspirin; Z86.16 Personal history of COVID-19; F17.210 Nicotine dependence, cigarettes, uncomplicated; Z79.891 Long term (current) use of opiate analgesic; F12.90 Cannabis use, unspecified, uncomplicated; Z72.89 Other problems related to lifestyle; Z20.822 Contact with and (suspected) exposure to COVID-19
CPT/HCPCS: 36415; 70450; 70553; 71046; 72125; 72128; 72131; 72156; 72157; 72158; 74177; 80048; 80053; 81001; 82550; 82607; 82746; 82747; 82948; 83735; 84439; 84443; 84480; 84484; 85025; 85027; 85652; 86140; 93005; 96360; 97110; 97161; 97166; 97530; 97535; 99285; A9270; A9577; C9803; G0378; J7040; Q9967; U0003; U0005

== ENCOUNTER 2022-06-07 13:45 | Outpatient (CLI) | payer MEDICARE, SELFPAY ==
--- NOTE | ~2022-06-07 | CT_ITS ---
EXAMINATION: CT diagnostic chest wo con DATE: 06/07/2022 14:18 INDICATION: Lung nodule TECHNIQUE: Computed tomography (CT) of the chest was performed without intravenous contrast. The dose -length product (DLP) was 95.80 mGy-cm. Automated exposure control and iterative reconstruction techn ique were employed. COMPARISON: 04/30/2021 FINDINGS: There is a stable 2 mm pleural-based nodule of the right upper lobe. There are minimal tree -in-bud opacities in the lower lobes. No pleural effusion or pneumothorax. No pathologically enlarged thoracic lymph nodes are identified. The heart size is normal. Calcified coronary artery atheroscler osis is noted. There is mild thoracic spondylosis. Healed right-sided rib fractures are noted. IMPRESSION: 1. Stable 2 mm right upper lobe nodule, likely old granulomatous disease. 2. Minimal tree-in-bud opacities of the lower lobes, consistent with infection/inflammation. Reviewed, dictated and finalized at location A. IMPRESSION: 1. Stable 2 mm right upper lobe nodule, likely old granulomatous disease. 2. Minimal tree-in-bud opacities of the lower lobes, consistent with infection/ inflammation.
== END 2022-06-07 13:46 | disposition home or self-care (01) ==
PROVIDERS: PCP Family Medicine; Visit Provider Nurse Practitioner Family
DX: R91.1 Solitary pulmonary nodule (principal); R91.8 Other nonspecific abnormal finding of lung field
CPT/HCPCS: 71250

== ENCOUNTER → 2022-06-15 12:00 | Outpatient (CLI) | payer MEDICARE, SELFPAY ==
--- NOTE | ~2022-06-15 | XR_ITS ---
XR hip LT min 3V w AP pelvis 06/15/2022 12:25 Indication: Left hip pain Procedure: 3 views left hip Comparison: No prior studies for comparison. Findings: Pelvic rings are intact. Mild osteoarthritis of the hips. There is advanced lower lumbar sp ondylosis. There is atherosclerosis. Pelvic rings are intact. No acute fracture or medical malalignme nt. Impression: 1: No acute bone or joint abnormality. 2: Mild bilateral osteoarthritis of the hips. Reviewed, dictated and finalized at location A. Impression: 1: No acute bone or joint abnormality. 2: Mild bilateral osteoarthritis of the hips.
== END ==
PROVIDERS: PCP Family Medicine; Visit Provider Family Medicine
DX: M25.552 Pain in left hip (principal); M16.0 Bilateral primary osteoarthritis of hip
CPT/HCPCS: 73502

== ENCOUNTER → 2022-07-13 15:44 | Outpatient (CLI) | payer MEDICARE, SELFPAY ==
--- NOTE | ~2022-07-13 | XR_ITS ---
XR chest 2V DATE: 07/13/2022 16:04 INDICATION: Cough TECHNIQUE: 2 views COMPARISON: 06/07/2022 CTA chest 09/20/2021 2 view chest FINDINGS: Normal heart size. Aortic calcification and mild unfolding. No hilar or mediastinal enlarge ment. No pulmonary infiltrate or consolidation, pleural effusion or prevascular congestion or pneumothorax. Old healed right rib fractures. IMPRESSION: No active cardiopulmonary disease Aortic atherosclerosis Reviewed, dictated and finalized at location A.
== END ==
PROVIDERS: PCP Family Medicine; Visit Provider Nurse Practitioner Family
DX: R05.9 Cough, unspecified (principal); I70.0 Atherosclerosis of aorta
CPT/HCPCS: 71046

== ENCOUNTER → 2022-11-03 10:13 | Outpatient (CLI) | payer MEDICARE, SELFPAY ==
--- NOTE | ~2022-11-03 | XR_ITS ---
Left Shoulder Technique: AP and axillary views were obtained. Clinical History: Pain Findings: No fracture or dislocation is seen. Osseous alignment is anatomic. View is minimal AC joint degenerative change. Soft tissues are unremarkable. Impression: Minimal AC joint degenerative change. Reviewed, dictated and finalized at location . 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
== END ==
PROVIDERS: PCP Family Medicine; Visit Provider Family Medicine
DX: M25.512 Pain in left shoulder (principal)
CPT/HCPCS: 73030

== ENCOUNTER 2022-12-08 10:15 | Outpatient (RCR) | payer MEDICARE, SELFPAY ==
[2022-12-01 07:55] VITALS: BP_SYST 140
--- NOTE | 2022-12-01 08:35 | PTOPEVAL1 ---
Assessment and note entered by Flower Treivzo, PT Evaluation Information Assessment Status Evaluation Diagnosis L shoulder pain Onset September 2022 Subjective Information gradual increase in shoulder pain, no injury or trauma to shoulder; starting to have more R shoulder pain xray report states: min A-C joint degenerative changes; Reported Pain Level Pain Score Self Report L shoulder Additional Pain Score Comments pain range in past week: 0-8/10; sharp pain anterior shoulder, increase pain with lifting anything up forward or to side; problems sleeping --getting comfortable to fall asleep and awaken few times night with pain; decrease pain with extra strength tylenol; use ice- helps a little; Assessment PT Clinical Summary Juno has the diagnosis of L shoulder pain, with gradual onset, without trauma to arm. History includes cervical fusion, L ulnar nerve and carpal tunnel surgeries, with residual weakness of L hand and tingling fingers. He is retired and active, but is now limited due to shoulder pain, with decrease sleep tolerance. Xray report states min A-C joint degenerative changes. With the evaluation he has decreased L shoulder ROM and strength, with poor standing position of shoulder. Tenderness over bicep insertion. Skilled PT services for impingement syndrome of L shoulder--modalities for pain control, therapeutic exercises to increase shoulder ROM and strength with education for HEP and posture correction, to improve GH joint alignement. Plan of Care Interventions Electrical Stimulation,Hot Pack/Cold Pack,Manual Therapy,Neuro Re-education,Patient/Caregiver Education,Therapeutic Activities,Therapeutic Exercise,Ultrasound,Other Other Interventions taping PT Services Indicated Yes Treatment Frequency and 2x/wk for 4 weeks Duration These treatments will address the objective and functional deficits as defined above. The patient will be advanced safely and appropriately in order for the patient to progress towards his/her prior level of function. Additional exercises will be introduced and as well as a comprehensive home exercise program upon discharge, if needed, ?to ensure carryover of functional gains achieved in the clinic. This treatment plan has been reviewed and agreement upon by the patient.
--- NOTE | 2023-01-20 15:41 | PTOPDC ---
Assessment and note entered by Flower Trevizo, PT Evaluation Information Assessment Status Discharge - Pt Not Present Diagnosis L shoulder pain Assessment PT Clinical Summary Juno has received 2 PT sessions, for the diagnosis of L shoulder pain, on December 01 and . He then stopped attending therapy, therefore he will be discharged at this time. The goals were not assessed. Plan of Care PT Services Indicated discharge PT
== END 2023-01-21 09:05 | disposition home or self-care (01) ==
LOC: ANHPT 10:15
PROVIDERS: PCP Family Medicine; Visit Provider Nurse Practitioner Family
DX: M25.519 Pain in unspecified shoulder (principal)
CPT/HCPCS: 97110; 97140; 97161

== ENCOUNTER → 2023-09-14 09:28 | Outpatient (CLI) | payer MEDICARE, SELFPAY ==
--- NOTE | ~2023-09-14 | MR_ITS ---
MRI of the brain Clinical History: Other signs and symptoms involving muscular skeletal system Technique: Axial and sagittal T1-weighted images were acquired. These were followed by axial T2-weigh sadiq, diffusion weighted, gradient, and FLAIR images. COMPARISON: 09/21/2021 Findings: There is no acute infarct, intracranial hemorrhage, or mass lesion. There are minimal chron ic white matter changes in the periventricular white matter bilaterally. Ventricles and subarachnoid spaces are unremarkable. Orbits are unremarkable. Paranasal sinuses and m astoid air cells are clear. Major intracranial flow voids are intact. Sagittal midline structures are intact. IMPRESSION: No significant abnormality seen. Reviewed, dictated and finalized at location M. PRESIDENT OF OPERATIONS
== END ==
PROVIDERS: PCP Family Medicine; Visit Provider Family Medicine
DX: R29.898 Other symptoms and signs involving the musculoskeletal system (principal)
CPT/HCPCS: 70551

== ENCOUNTER 2023-10-12 08:35 | Outpatient (CLI) | payer MEDICARE, SELFPAY ==
--- NOTE | 2023-10-12 11:00 | NEURO_ITS ---
Impression: # Complains of weakness in all extremities. ? 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 ? # Superimposed mild bilateral Carpal Tunnel Syndrome. ? #? Superimposed mild left ulnar neuropathy around the elbow. ? # Needle/EMG exam revealed neurogenic changes but no acute fibs. ? # Clinical correlation recommended. ? Nerve Conduction Studies Anti Sensory Summary Table Stim Site NR Peak (ms) P-T Amp (?V) Site1 Site2 Delta-P (ms) Dist (cm) Brennon (m/s) Left Median Anti Sensory (2-3nd Digit) Wrist 4.8 18.1 Wrist 2-3nd Digit 4.8 14.0 29 Wrist 4.1 30.4 Wrist 2-3nd Digit 4.8 14.0 29 Right Median Anti Sensory (2-3nd Digit) Wrist 4.7 45.3 Wrist 2-3nd Digit 4.7 14.0 30 Wrist 4.5 18.0 Wrist 2-3nd Digit 4.7 14.0 30 Left Radial Anti Sensory (Base 1st Digit) Wrist 2.3 19.5 Wrist Base 1st Digit 2.3 0.0 Right Radial Anti Sensory (Base 1st Digit) Wrist 2.9 14.4 Wrist Base 1st Digit 2.9 0.0 Left Saphenous Anti Sensory (Ant Med Mall) NO RESPONSE 14cm NR 14cm Ant Med Mall 0.0 Right Saphenous Anti Sensory (Ant Med Mall) NO RESPONSE 14cm NR 14cm Ant Med Mall 0.0 Left Sup Fibular Anti Sensory (Ant Lat Mall) 14 cm 4.2 10.1 14 cm Ant Lat Mall 4.2 16.0 38 Right Sup Fibular Anti Sensory (Ant Lat Mall) NO RESPONSE 14 cm NR 14 cm Ant Lat Mall 16.0 Left Sural Anti Sensory (Lat Mall) NO RESPONSE Calf NR Calf Lat Mall 16.0 Right Sural Anti Sensory (Lat Mall) Calf 4.1 20.6 Calf Lat Mall 4.1 16.0 39 Left Ulnar Anti Sensory (5th Digit) Wrist 3.4 32.4 Wrist 5th Digit 3.4 14.0 41 Right Ulnar Anti Sensory (5th Digit) Wrist 3.4 44.1 Wrist 5th Digit 3.4 14.0 41 Motor Summary Table Stim Site NR Onset (ms) O-P Amp (mV) Site1 Site2 Delta-0 (ms) Dist (cm) Brennon (m/s) Left Median Motor (Abd Poll Brev) Wrist 4.5 3.1 Elbow Wrist 6.0 31.0 52 Elbow 10.5 4.0 Right Median Motor (Abd Poll Brev) Wrist 4.1 2.3 Elbow Wrist 6.3 32.0 51 Elbow 10.4 1.2 Left Peroneal Motor (Vastus Med) Ankle 4.1 3.0 Popit Ankle 11.1 43.0 39 Popit 15.2 2.4 Right Peroneal Motor (Vastus Med) Ankle 4.5 2.6 Popit Ankle 9.4 39.0 41 Popit 13.9 2.0 Left Tibial Motor (Abd Zamudio Brev) Ankle 4.5 2.4 Knee Ankle 10.5 42.0 40 Knee 15.0 1.2 Right Tibial Motor (Abd Zamudio Brev) Ankle 4.8 4.4 Knee Ankle 11.8 41.0 35 Knee 16.6 1.8 Left Ulnar Motor (Abd Dig Minimi) Wrist 3.0 6.8 A Elbow Wrist 6.4 31.0 48 A Elbow 9.4 4.8 B Elbow Wrist 4.7 23.0 49 B Elbow 7.7 5.0 Right Ulnar Motor (Abd Dig Minimi) Wrist 3.4 7.1 A Elbow Wrist 5.9 32.0 54 A Elbow 9.3 6.2 F Wave Studies NR F-Lat (ms) L-R F-Lat (ms) Left Median (Mrkrs) (Abd Poll Brev) 31.89 1.81 Right Median (Mrkrs) (Abd Poll Brev) 30.08 1.81 Left Peroneal (Mrkrs) (EDB) 60.17 0.02 Right Peroneal (Mrkrs) (EDB) 60.19 0.02 Left Tibial (Mrkrs) (Abd Hallucis) 61.10 1.20 Right Tibial (Mrkrs) (Abd Hallucis) 59.91 1.20 Left Ulnar (Mrkrs) (Abd Dig Min) 31.46 1.81 Right Ulnar (Mrkrs) (Abd Dig Min) 29.65 1.81 EMG
== END 2023-10-12 08:36 | disposition home or self-care (01) ==
PROVIDERS: PCP Family Medicine; Visit Provider Family Medicine
DX: G62.89 Other specified polyneuropathies (principal); G56.03 Carpal tunnel syndrome, bilateral upper limbs; G56.22 Lesion of ulnar nerve, left upper limb; M47.12 Other spondylosis with myelopathy, cervical region; M47.16 Other spondylosis with myelopathy, lumbar region; M47.22 Other spondylosis with radiculopathy, cervical region; R29.898 Other symptoms and signs involving the musculoskeletal system
CPT/HCPCS: 95886; 95913

== ENCOUNTER 2024-01-11 10:12 | Outpatient (CLI) | payer MEDICARE, SELFPAY ==
--- NOTE | ~2024-01-11 | MR_ITS ---
EXAMINATION: MR cervical spine wo con DATE: 01/11/2024 10:58 INDICATION: Neck pain. Left upper extremity numbness and weakness. TECHNIQUE: Magnetic resonance imaging (MRI) of the cervical spine was performed without intravenous c ontrast. COMPARISON: Cervical spine MRI 09/21/2021 FINDINGS: There is 3 degrees dextrocurvature of cervical spine. There is mild kyphosis of cervical sp ine. There is 2 mm anterolisthesis of C4 on C5 and 2 mm retrolisthesis of C6 on C7. Vertebral body he ights are normal. There are changes of posterior fusion procedure at C3-C4. There is severely decreas ed disc height at C5-C6 and C6-C7. The spinal cord signal intensity is normal. There is mild volume l oss of the spinal cord at C3-C4, consistent with myelomalacia. The following disc levels are specific ally discussed: C2-C3: There is a central protrusion. There is mild right and mild left uncovertebral joint osteoarth ritis. There is severe bilateral facet joint osteoarthritis. There is moderate bilateral neural javi inal stenosis. There is no central canal stenosis. C3-C4: The disc is bulging. There is moderate bilateral uncovertebral joint osteoarthritis. There is severe bilateral facet joint osteoarthritis. There is moderate bilateral neural foraminal stenosis. T here is mild central canal stenosis with posterior decompression. C4-C5: The disc does not extend beyond the endplate margin. There is mild bilateral uncovertebral teja nt osteoarthritis. There is severe bilateral facet joint osteoarthritis. There is mild right and mode rate left neural foraminal stenosis. There is no central canal stenosis. C5-C6: The disc is bulging. There is severe bilateral uncovertebral joint osteoarthritis. There is mi ld right and moderate left facet joint osteoarthritis. There is mild right and moderate left neural f oraminal stenosis. There is mild central canal stenosis. C6-C7: The disc is bulging. There is severe bilateral uncovertebral joint osteoarthritis. There is se jack bilateral facet joint osteoarthritis. There is moderate bilateral neural foraminal stenosis. The re is mild central canal stenosis. C7-T1: There is a central extrusion. There is moderate bilateral uncovertebral joint osteoarthritis. There is moderate bilateral facet joint osteoarthritis. There is mild bilateral neural foraminal sten osis. There is mild central canal stenosis. IMPRESSION: 1. Severe cervical spondylosis with interval improvement at C3-C4 status post posterior decompression . 2. Myelomalacia at C3-C4. Reviewed, dictated and finalized at location A. IMPRESSION: 1. Severe cervical spondylosis with interval improvement at C3-C4 status post p osterior decompression. 2. Myelomalacia at C3-C4.
--- NOTE | ~2024-01-11 | MR_ITS ---
MRI of the lumbar spine Clinical History: Lower extremity weakness/numbness, left-sided Technique: Axial T2-weighted images, and sagittal T1-weighted, T2-weighted, and and T2 fat-sat images were acquired. COMPARISON: 09/22/2021 Findings: There is straightening of the normal lumbar lordosis. No acute fracture seen. There is 3 mm retrolisthesis of L2 over L3. There is extensive reactive marrow edema and signal changes at L2, L3, L4, L5 related to underlying severe degenerative disc change. At L1-L2, there is moderate to severe degenerative disc narrowing. There is diffuse disc bulge and se jack facet arthropathy. There is mild to moderate central canal stenosis, and moderate to severe bila teral neural foraminal narrowing, right worse than left. At L2-L3, there is severe degenerative disc narrowing. Disc bulge and facet arthropathy result in mil d to moderate central canal stenosis. There is severe right neural foraminal narrowing, and moderate to severe left neural foraminal narrowing. At L3-L4, there is severe degenerative disc narrowing. Diffuse disc bulge/protrusion and severe facet arthropathy result in severe spinal canal stenosis/thecal sac compression. There is severe bilateral neural foraminal compromise. At L4-L5, there is severe degenerative disc narrowing. Diffuse disc bulge and severe facet arthropath y result in severe spinal canal stenosis/thecal sac compression. There is severe bilateral neural for aminal compromise. At L5-S1, there is severe degenerative disc narrowing. Diffuse disc bulge and advanced facet arthropa thy are present, with probable moderate to severe central canal stenosis. There is severe bilateral n eural foraminal, mass, left worse than right. Paravertebral soft tissues are unremarkable. Impression: Diffuse, severe degenerative spondylosis throughout the lumbar spine, as detailed above. Reviewed, dictated and finalized at location M. Impression: Diffuse, severe degenerative spondylosis throughout the lumbar spine, as detail ed above.
== END 2024-01-11 10:13 ==
PROVIDERS: PCP Family Medicine; Visit Provider Student in an Organized Health Care Education/Training Program
DX: M47.16 Other spondylosis with myelopathy, lumbar region (principal); M47.22 Other spondylosis with radiculopathy, cervical region; M47.12 Other spondylosis with myelopathy, cervical region
CPT/HCPCS: 72141; 72148

== ENCOUNTER 2024-10-24 00:19 | Day surgery (SDC) | payer MEDICARE, SELFPAY ==
[2024-10-19 14:08] VITALS: BMI 23.1
--- NOTE | 2024-10-19 14:27 | PC.NURSE ---
Addendum entered by Irina Duff RN 10/19/24 14:35: Pt aware last dose of all supplements is 10/20/24 as instructed below. Original Note: Report to the Outpatient Waiting Room, entrance under the green pavilion located off [facility], at time __0800am on date __10/24/24 . Planned Procedure Time: _1000am .? Time changes happen often and if your time is changed the preop area will call you the afternoon before. - You and your visitor will be asked to self-screen and do not enter if you have any COVID symptoms. Please call surgeon if you need to reschedule. - A mask is optional within the hospital at this time. Patients - No food from midnight until time of surgery and no smoking, or chewing tobacco (or any form of nicotine). No chewing gum, candy or mints. Take only the following medications with a SIP of water on the morning of surgery: __Sertaline, Gabapentin and Cyclobenzaprine DO NOT STOP ANY OF YOUR OTHER PRESCRIPTION MEDICATIONS PRIOR TO SURGERY EXCEPT THE FOLLOWING Hold all vitamins and supplements for 3 days per anesthesiologist. Medications to discontinue per physician Pt to check w Dr Blank regarding NSAIDS ( Celebrex and Aspirin) office was closed, when I called just now for pt. He did not have paperwork from office to view. Date to take last dose____Per Dr Blank . Please no make-up, nail telugu, hairspray, perfume, deodorant, or body powder the day of surgery.? No jewelry (including any body piercings) or valuables the day of surgery, leave them at home.? Please take a shower or bath the night before, or the morning of, surgery with an antibacterial soap.? Wear comfortable, loose fitting clothing.? - Jewelry must be removed prior to entering the operating room.? Rings and piercings that are not removed may be cut off. - The hospital will not accept responsibility for valuables.? - Please leave all valuables, including medications, at home the day of surgery. If you are going home after surgery, a licensed test car driver must drive you home.? - NO public transportation without another adult if you receive anesthesia. - We recommend that an adult stay with you for 24 hours following discharge. - We also recommend that you do not drive, make important decision, drink alcoholic beverages, or take any drugs that were not prescribed by your health care provider for at least 24 hours after your discharge time. Follow any additional instructions given to you from your surgeon. Telephone instructions given to ___Patient and asked if any additional questions and then verbalized understanding. Patient advised to call surgeon office or pre surgery nurse liaison [phone] if any additional questions.
--- OUTSIDE RECORDS SUMMARY | 2024-10-24 00:22 | XMS_ITS | Referral Summary ---
Author Organization [facility] Address [address] [place] [address] Care Team Providers Care Car Runner Name Role Phone Yonatan Bhatti MD Primary Care Provider [phone] Source Comments [facility],non-owned Affiliates and Associated Physician Practices is amultiple site organization consisting of ambulatory clinics and hospital sitesin [place], [place], [place] and [place]. This disclosure is being madepursuant to the Care Everywhere program and may not contain all information available regarding this patient. Last updated 18.[facility] Allergies Active Allergy Reactions Criticality Noted Date Comments Pseudoephedrine Base Palpitations High 09/24/2021 Medications * Be aware that medications may not be up to date on this document. Alwaysverify current medications with the patient. Medication Sig Dispensed Refills Start Date End Date Status Aspirin 81 MG CAPS Take 81 mg by mouth every 24 hours Active ALPRAZolam (XANAX) 1 MG tablet Take 1 (one) tablet by mouth nightly as needed Active atorvastatin (LIPITOR) 20 MG tablet Take 1 (one) tablet by mouth at bedtime Active celecoxib (CELEBREX) 200 MG capsule Take 1 (one) capsule by mouth 2 times daily Active cyclobenzaprine (FLEXERIL) 10 MG tablet Take 1 (one) tablet by mouth as directed Active sertraline (ZOLOFT) 50 MG tablet Take 1 (one) tablet by mouth once daily Active Multiple Vitamins-Minerals (MENS 50+ MULTI VITAMIN/MIN PO) Take 1 tablet by mouth as directed Active Bioflavonoid Products (VITAMIN C PLUS) 1000 MG TABS Take 1 tablet by mouth once daily Active VITAMIN E PO Take 1 tablet by mouth once daily Active Cholecalciferol (VITAMIN D) 125 MCG (5000 UT) CAPS Take 1 (one) capsule by mouth once daily Active gabapentin (NEURONTIN) 300 MG capsule Take 1 (one) capsule by mouth at bedtime 02/17/2022 Active Polyethyl Glycol-Propyl Glycol (SYSTANE OP) 1-2 drops by Ophthalmic route as directed Active folic acid (Folvite) 1 MG tablet Take 1 (one) tablet by mouth once daily 10/12/2023 Active finasteride (Proscar) 5 MG tablet Take 1 (one) tablet by mouth once daily 10/10/2023 Active traZODone (Desyrel) 50 MG tablet Take 1 (one) tablet by mouth at bedtime 07/27/2023 Active lisinopril (Prinivil; Zestril) 20 MG tablet Take 1 (one) tablet by mouth once daily for high blood pressure 08/26/2023 Active Active Problems Problem Noted Date Diagnosed Date Other specified polyneuropathies 11/03/2023 11/03/2023 Spondylosis 10/27/2023 10/27/2023 Other spondylosis with myelopathy, lumbar region 10/27/2023 10/27/2023 Weakness 10/27/2023 10/27/2023 Other symptoms and signs inv olving the musculoskeletal system 10/27/2023 10/27/2023 Spinal stenosis of cervical region 09/22/2021 Lumbosacral spondylosis without myelopathy Lumbar radiculopathy Immunizations Name Administration Dates Next Due Malinda Brannon primary monoval ent 12+ yr 0.3mL Purple cap 06/20/2021,12/11/2020,11/11/2020 Social History Tobacco Use Types Packs/Day Years Used Date Smoking Tobacco: Every Day Cigarettes 1 55 Smokeless Tobacco: Never Alcohol Use Standard Drinks/Week Comments Yes 34 (1 standard drink = 0.6 oz pure alcohol) 4-5 beers daily; no HX eoth withdrawal or DTs AUDIT-C Answer Date Recorded Q1: How often do you have a drink containing alcohol? 4 or more times a week 09/29/2021 Q2: How many drinks containi ng alcohol do you have on a typical day when you are drinking? 5 or 6 Q3: How often do you have si x or more drinks on one occasion? Weekly 09/29/2021 PHQ-2 Answer Date Recorded Patient Health Questionnaire-2 Score 2 11/03/2023 Sex and Gender Information Value Date Recorded Sex Assigned at Not on file Gender Identity Not on file Sexual Orientation Not on file Last Filed Vital Signs Vital Sign Reading Time Taken Comments Blood Pressure 134/70 06/02/2022 9:20 AM CDT Pulse 70 06/02/2022 9:45 AM CDT Temperature 36.7 C (98 F) 06/02/2022 9:20 AM CDT Respiratory Rate 16 06/02/2022 9:20 AM CDT Oxygen Saturation 98% 06/02/2022 9:45 AM CDT Inhaled Oxygen Concentration - - Weight 81.6 kg (180 lb) 10/28/2022 11:05 AM ENVIRONMENTAL SERVICES COORDINATOR Height 177.8 cm (5' 10 ) 04/22/2022 1:19 PM CDT Body Mass Index 25.83 04/22/2022 1:19 PM CDT Plan of Treatment Not on file Medical Devices Implanted Type Area Cullet Trucker Device Identifier Shelf Expiration Date Model / Serial / Lot Reline-C Renzo Ti 3.5 X 50 Mm, Pre Bent Implanted:Qty: 2 on 09/29/2021 by Garland Fernandez MD at [facility] Other (Type not listed) Bilateral: Spine Cervical [id number] / / Description:Reline-C renzo TI 3.5 x 50 mm, pre bent Tyson Bone Void 10ml [facility] Grftn Algrf Ptty - [id number] Implanted:Qty: 1 on 09/29/2021 by Garland Fernandez MD at [facility] Other (Type not listed) N/A: Spine Cervical Medtronic Sofamor [place] Spine [id number] / [id number] / Description:bone putty Reline-C Lockscrew Implanted:Qty: 4 on 09/29/2021 by Garland Fernandez MD at [facility] Screw Bilateral: Spine Cervical Nuvasive [id number] / / Description:Reline- C Locksc rew Reline-C Screw 3.5 X 14 Ma Implanted:Qty: 2 on 09/29/2021 by Garland Fernandez MD at [facility] Screw Bilateral: Spine Cervical Nuvasive [id number] / / Reline-C Screw 3.5x 16 Ma Implanted:Qty: 2 on 09/29/2021 by Garland Fernandez MD at [facility] Screw Bilateral: Spine Cervical Nuvasive [id number] / / Advance Directives * Full Code (Latest Code Status on File) Date Activated Date Inactivated Comments 09/29/2021 4:27 PM 10/01/2021 1:38 PM Care Teams Car Runner Relationship Specialty Start Date End Date Yonatan Bhatti MD [address] [place] [address] PCP - General Family Medicine 10/27/23
--- OUTSIDE RECORDS SUMMARY | 2024-10-24 00:22 | XMS_ITS | Patient Health Summary ---
Author Organization [facility] Address [address] [place] [address] Care Team Providers Care Pharmacy Customer Care Specialist Name Role Phone Yonatan Bhatti MD Primary Care Provider [phone] Note from [facility],non-owned Affiliates and Associated Physician Practices is amultiple site organization consisting of ambulatory clinics and hospital sitesin [place], [place], [place] and [place]. This disclosure is being madepursuant to the Care Everywhere program and may not contain all information available regarding this patient. Last updated 18.[facility] Allergies * Pseudoephedrine Base(Palpitations) -High Criticality Medications * Be aware that medications may not be up to date on this document. Alwaysverify current medications with the patient. * Aspirin 81 MG CAPS Take 81 mg by mouth every 24 hours * ALPRAZolam (XANAX) 1 MG tablet Take 1 (one) tablet by mouth nightly as needed * atorvastatin (LIPITOR) 20 MG tablet Take 1 (one) tablet by mouth at bedtime * celecoxib (CELEBREX) 200 MG capsule Take 1 (one) capsule by mouth 2 times daily * cyclobenzaprine (FLEXERIL) 10 MG tablet Take 1 (one) tablet by mouth as directed * sertraline (ZOLOFT) 50 MG tablet Take 1 (one) tablet by mouth once daily * Multiple Vitamins-Minerals (MENS 50+ MULTI VITAMIN/MIN PO) Take 1 tablet by mouth as directed * Bioflavonoid Products (VITAMIN C PLUS) 1000 MG TABS Take 1 tablet by mouth once daily * VITAMIN E PO Take 1 tablet by mouth once daily * Cholecalciferol (VITAMIN D) 125 MCG (5000 UT) CAPS Take 1 (one) capsule by mouth once daily * gabapentin (NEURONTIN) 300 MG capsule(Started 02/17/2022) Take 1 (one) capsule by mouth at bedtime * Polyethyl Glycol-Propyl Glycol (SYSTANE OP) 1-2 drops by Ophthalmic route as directed * folic acid (Folvite) 1 MG tablet(Started 10/12/2023) Take 1 (one) tablet by mouth once daily * finasteride (Proscar) 5 MG tablet(Started 10/10/2023) Take 1 (one) tablet by mouth once daily * traZODone (Desyrel) 50 MG tablet(Started 07/27/2023) Take 1 (one) tablet by mouth at bedtime * lisinopril (Prinivil; Zestril) 20 MG tablet(Started 08/26/2023) Take 1 (one) tablet by mouth once daily for high blood pressure Active Problems Problem Noted Date Diagnosed Date Other specified polyneuropathies 11/03/2023 11/03/2023 Spondylosis 10/27/2023 10/27/2023 Other spondylosis with myelopathy, lumbar region 10/27/2023 10/27/2023 Weakness 10/27/2023 10/27/2023 Other symptoms and signs inv olving the musculoskeletal system 10/27/2023 10/27/2023 Spinal stenosis of cervical region 09/22/2021 Lumbosacral spondylosis without myelopathy Lumbar radiculopathy Immunizations * Covid Pfizer primary monovalent 12+ yr 0.3mL Purple cap(Given 06/20/2021, 12/11/2020, 11/11/2020) Social History Tobacco Use Types Packs/Day Years [...] 81.6 kg (180 lb) 10/28/2022 11:05 AM AGRICULTURAL SERVICES DIRECTOR Height 177.8 cm (5' 10 ) 04/22/2022 1:19 PM CDT Body Mass Index 25.83 04/22/2022 1:19 PM CDT Medical Devices Implanted Type Area Cured 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 Other (Type not listed) Bilateral: Spine Cervical [id number] / / Description:Reline-C renzo TI 3.5 x 50 mm, pre bent Tyson Bone Void 10ml Db Grftn Algrf Ptty - [id number] Implanted:Qty: 1 on 09/29/2021 by Garland Fernandez MD at [facility] Other (Type not listed) N/A: Spine Cervical Medtronic Sofamor Danek Spine [id number] / [id number] / Description:bone putty Reline-C Lockscrew Implanted:Qty: 4 on 09/29/2021 by Garland Fernandez MD at [facility] Screw Bilateral: Spine Cervical Nuvasive [id number] / / Description:Reline- C Locksc rew Reline-C Screw 3.5 X 14 Ma Implanted:Qty: 2 on 09/29/2021 by Garland Fernandez MD at [facility] Screw Bilateral: Spine Cervical Nuvasive [id number] / / Reline-C Screw 3.5x 16 Ma Implanted:Qty: 2 on 09/29/2021 by Garland Fernandez MD at [facility] Screw Bilateral: Spine Cervical Nuvasive [id number] / / Procedures * MRI CERVICAL SPINE WO CONTRAST(Performed 10/31/2023) Performed for Spinal stenosis of cervical region, Cervical myelopathy (HCC) * XR CERVICAL SPINE 2 OR 3VW(Performed 10/27/2023) Performed for Spinal stenosis of cervical region, Cervical myelopathy (HCC), S/P cervical spinal fusion * PROC INJECTION JOINT (SMALL/INTERMED/MAJOR)(Performed 12/10/2022) Performed for Left shoulder pain, unspecified chronicity, Adhesive capsulitis of left shoulder * XR SHOULDER LEFT 2VW OR MORE(Performed 12/10/2022) Performed for Left shoulder pain, unspecified chronicity * XR CERVICAL SPINE 2 OR 3VW(Performed 10/28/2022) Performed for Spinal stenosis of cervical region * PAIN MANAGEMENT PROCEDURE TIME(Performed 06/02/2022) Performed for Lumbar radiculopathy * XR CERVICAL SPINE 2 OR 3VW(Performed 05/27/2022) Performed for Cervical myelopathy (HCC) * XR CERVICAL SPINE 2 OR 3VW(Performed 04/22/2022) Performed for Cervical myelopathy (HCC) * PAIN MANAGEMENT PROCEDURE TIME(Performed 04/15/2022) Performed for Lumbosacral spondylosis without myelopathy * PAIN MANAGEMENT PROCEDURE TIME(Performed 03/23/2022) Performed for Lumbar radiculopathy * PAIN MANAGEMENT PROCEDURE TIME(Performed 03/04/2022) Performed for Lumbosacral spondylosis without myelopathy * PAIN MANAGEMENT PROCEDURE TIME(Performed 02/09/2022) Performed for Lumbosacral spondylosis without myelopathy * XR CERVICAL SPINE 2 OR 3VW(Performed 01/21/2022) Performed for Cervical myelopathy (HCC), Cervical spinal stenosis * XR LUMBAR SPINE 2 OR 3VW(Performed 12/03/2021) Performed for Spinal stenosis of cervical region, Lumbar back pain * XR CERVICAL SPINE 2 OR 3VW(Performed 12/03/2021) Performed for Cervical spinal stenosis, Cervical myelopathy (HCC) * XR CERVICAL SPINE 2 OR 3VW(Performed 10/22/2021) Performed for Cervical spinal stenosis * CARDIAC EKG ORDER(Performed 10/13/2021) * XR CERVICAL SPINE 2 OR 3VW(Performed 10/01/2021) Performed for Spinal stenosis of cervical region * BASIC METABOLIC PANEL (CALCIUM TOTAL)(Performed 09/30/2021) Performed for Spinal stenosis of cervical region * CBC W/O DIFFERENTIAL(Performed 09/30/2021) Performed for Spinal stenosis of cervical region * FL DEBRA SURGERY(Performed 09/29/2021) Performed for Spinal stenosis of cervical region * FUSION POSTERIOR CERVICAL (PCF)(Performed 09/29/2021) Performed for Cervical myelopathy (HCC) * ENDOTRACHEAL TUBE NOTE(Performed 09/29/2021) * PERIPHERAL IV NOTE(Performed 09/29/2021) * BLOOD TYPE VERIFICATION(Performed 09/29/2021) * TYPE + SCREEN PANEL(Performed 09/29/2021) Performed for Pre-op evaluation * PTT [facility](Performed 09/25/2021) Performed for Cervical spinal stenosis, Cervical myelopathy (HCC), Pre-operative clearance * PT-INR [facility](Performed 09/25/2021) Performed for Cervical spinal stenosis, Cervical myelopathy (HCC), Pre-operative clearance * COMPREHENSIVE METABOLIC PANEL(Performed 09/25/2021) Performed for Cervical spinal stenosis, Cervical myelopathy (HCC), Pre-operative clearance * CBC W AUTO DIFFERENTIAL(Performed 09/25/2021) Performed for Cervical spinal stenosis, Cervical myelopathy (HCC), Pre-operative clearance * XR CHEST 2VW(Performed 09/25/2021) Performed for Cervical spinal stenosis, Cervical myelopathy (HCC), Pre-operative clearance * EKG 12-LEAD(Performed 09/25/2021) Performed for Cervical myelopathy (HCC), Pre-operative clearance * XR CERVICAL SPINE 2 OR 3VW(Performed 09/24/2021) Performed for Neck pain Results * MRI CERVICAL SPINE WO CONTRAST (10/31/2023 7:46 AM AGRICULTURAL SERVICES DIRECTOR) Anatomical Region Laterality Modality Pelvis Magnetic Resonan ce 10/31/2023 4:36 PM AGRICULTURAL SERVICES DIRECTOR Impressions 11/01/2023 8:12 AM AGRICULTURAL SERVICES DIRECTOR IMPRESSION: 1. Multilevel degenerative disc and joint disease of the cervical spine as described above most prominent at the level of C5-C6 and C6-C7. No abnormal spinal cord signal. No high-grade central canal stenosis. Redemonstration of postoperative changes from laminectomy and posterior instrumented fusion through the levels of C3 and C4 > Interpreting Provider: Justyna Smith MD on 11/01/2023 8:12 AM Narrative 11/01/2023 8:12 AM AGRICULTURAL SERVICES DIRECTOR PROCEDURE: MRI CERVICAL SPINE WO CONTRAST DATE/TIME OF EXAM: 10/31/2023 7:46 AM CLINICAL INFORMATION: None relevant/not provided if blank. Indication: M48.02: Spinal stenosis of cervical region G95.9: Cervical myelopathy (CMS-HCC) Additional History: COMPARISON: Cervical spine radiographs 10/28/2022 TECHNIQUE: Cervical spine MRI was performed without contrast, according to standard protocol. FINDINGS: Mild anterolisthesis of C4 on C5. Minimal retrolisthesis of C5 on C6 and C6 on C7, degenerative. Postsurgical changes from posterior instrumented fusion with the bilateral lateral mass screws and interconnecting rods through the levels of C3 and C4 postsurgical changes of laminectomy also noted through these levels. Vertebral bodies are normal in height without evidence of compression fractures. Marrow signal intensity is normal except for endplate degenerative changes most prominent at the levels of C6-C7 and also areas of fatty replacement.. The craniocervical junction and visualized portions of the posterior fossa appear normal. The spinal cord appears normal. Moderate to severe disc height loss at C5-C6 and C6-C7.. No soft tissue abnormality is identified. Normal flow voids are identified in the vertebral arteries. C2-3: Small posterior disc bulge. There is no central canal stenosis. There is moderate bilateral facet osteoarthritis. There is mild right, moderate left uncovertebral joint osteoarthritis. There is mild right, moderate left neural foraminal stenosis. C3-4: Small posterior disc bulge. There is no central canal stenosis, posterior decompression noted. Evaluation of the facet joints is limited secondary to hardware. There is moderate bilateral, right greater than left uncovertebral joint osteoarthritis. There is moderate bilateral right greater than left neural foraminal stenosis. C4-5: No significant disc bulge, there is mild uncovering of the disc space.. There is no central canal stenosis, posterior decompression noted. Evaluation of the facet joints is limited secondary to hardware.. There is mild to moderate bilateral uncovertebral joint osteoarthritis. There is mild to moderate bilateral neural foraminal stenosis. C5-6: Small posterior disc bulge with minimal retrolisthesis. Mild to moderate central canal stenosis. Mild ligamentum flavum hypertrophy. There is moderate bilateral, left greater than right facet osteoarthritis. There is severe left, moderate right uncovertebral joint osteoarthritis. There is mild to moderate right, moderate to severe left neural foraminal stenosis. C6-7: Small posterior disc bulge with minimal retrolisthesis. Mildly mentum flavum hypertrophy.. There is mild to moderate central canal stenosis. There is mild to moderate facet osteoarthritis. There is severe left, moderate right uncovertebral joint osteoarthritis. There is moderate right, severe left neural foraminal stenosis. C7-T1: Small posterior disc bulge. Mild ventral effacement of the CSF space/thecal sac. There is mild bilateral facet osteoarthritis. There is moderate bilateral, right greater than left uncovertebral joint osteoarthritis. There is mild left, moderate right neural foraminal stenosis. Procedure Note Justyna Smith MD - 11/01/2023 PROCEDURE: MRI CERVICAL SPINE WO CONTRAST DATE/TIME OF EXAM: 10/31/2023 7:46 AM CLINICAL INFORMATION: None relevant/not provided if blank. Indication: M48.02: Spinal stenosis of cervical region G95.9: Cervical myelopathy (CMS-HCC) Additional History: COMPARISON: Cervical spine radiographs 10/28/2022 TECHNIQUE: Cervical spine MRI was performed without contrast, according to standard protocol. FINDINGS: Mild anterolisthesis of C4 on C5. Minimal retrolisthesis of C5 on C6 andC6 on C7, degenerative. Postsurgical changes from posterior instrumented fusion with the bilateral lateral mass screws and interconnecting rods through the levels of C3 and C4 postsurgical changes of laminectomy also noted through these levels. Vertebral bodies are normal in heightwithout evidence of compression fractures. Marrow signal intensity is normalexcept for endplate degenerative changes most prominent at the levels of C6-C7and also areas of fatty replacement.. The craniocervical junction and visualized portions of the posterior fossa appear normal. The spinalcord appears normal. Moderate to severe disc height loss at C5-C6 and C6-C7..No soft tissue abnormality is identified. Normal flow voids are identifiedin the vertebral arteries. C2-3: Small posterior disc bulge. There is no central canal stenosis.There is moderate bilateral facet osteoarthritis. There is mild right,moderate left uncovertebral joint osteoarthritis. There is mild right, moderateleft neural foraminal stenosis. C3-4: Small posterior disc bulge. There is no central canal stenosis, posterior decompression noted. Evaluation of the facet joints is limited secondary to hardware. There is moderate bilateral, right greater thanleft uncovertebral joint osteoarthritis. There is moderate bilateral right greater than left neural foraminal stenosis. C4-5: No significant disc bulge, there is mild uncovering of the disc space.. There is no central canal stenosis, posterior decompressionnoted. Evaluation of the facet joints is limited secondary to hardware.. Thereis mild to moderate bilateral uncovertebral joint osteoarthritis. There is mild to moderate bilateral neural foraminal stenosis. C5-6: Small posterior disc bulge with minimal retrolisthesis. Mild to moderate central canal stenosis. Mild ligamentum flavum hypertrophy.There is moderate bilateral, left greater than right facet osteoarthritis.There is severe left, moderate right uncovertebral joint osteoarthritis. Thereis mild to moderate right, moderate to severe left neural foraminalstenosis. C6-7: Small posterior disc bulge with minimal retrolisthesis. Mildlymentum flavum hypertrophy.. There is mild to moderate central canal stenosis. There is mild to moderate facet osteoarthritis. There is severe left, moderate right uncovertebral joint osteoarthritis. There is moderateright, severe left neural foraminal stenosis. C7-T1: Small posterior disc bulge. Mild ventral effacement of the CSF space/thecal sac. There is mild bilateral facet osteoarthritis. There is moderate bilateral, right greater than left uncovertebral joint osteoarthritis. There is mild left, moderate right neural foraminal stenosis. IMPRESSION: 1. Multilevel degenerative disc and joint disease of the cervical spineas described above most prominent at the level of C5-C6 and C6-C7. Noabnormal spinal cord signal. No high-grade central canal stenosis.Redemonstration of postoperative changes from laminectomy and posterior instrumentedfusion through the levels of C3 and C4 > Interpreting Provider: Justyna Smith MD on 11/01/2023 8:12 AM Garland Fernandez MD MR ORDERABLES * XR CERVICAL SPINE 2 OR 3VW (10/27/2023 11:48 AM AGRICULTURAL SERVICES DIRECTOR) Only the most recent of9 resultswithin the time period is included. Anatomical Region Laterality Modality Spine Radiographic Mariella ging 10/27/2023 1:51 PM AGRICULTURAL SERVICES DIRECTOR Impressions 10/27/2023 2:34 PM AGRICULTURAL SERVICES DIRECTOR IMPRESSION: Redemonstrated C3-C4 posterior instrumented spinal fusion, unchanged. Report dictated by Lenny Viramontes MD (resident care coordinator). I, Felix Antonio MD have personally reviewed and interpreted this examination/study. > Interpreting Provider: Felix Antonio MD on 10/27/2023 2:34 PM Narrative 10/27/2023 2:34 PM AGRICULTURAL SERVICES DIRECTOR PROCEDURE: XR CERVICAL SPINE 2 OR 3VW, DATE/TIME OF EXAM: 10/27/2023 11:48 AM, LOCATION [facility] INDICATION: M48.02: Spinal stenosis of cervical region G95.9: Cervical myelopathy ([facility]) Z98.1: S/P cervical spinal fusion COMPARISON: Cervical spine radiograph 10/28/2022. FINDINGS: Redemonstrated posterior instrumented spinal fusion of C3-C4 with rods and screws. Instrumentation is intact and osseous alignment is unchanged. Slight cervical kyphosis is again noted. Mild anterolisthesis at C4 over C5. No acute fracture or compression deformity. Multilevel degenerative changes are present. The prevertebral soft tissues are normal. Procedure Note Felix Antonio MD - 10/27/2023 PROCEDURE: XR CERVICAL SPINE 2 OR 3VW, DATE/TIME OF EXAM: 1:48 AM, LOCATION [facility] INDICATION: M48.02: Spinal stenosis of cervical region G95.9: Cervical myelopathy ([facility]) Z98.1: S/P cervical spinal fusion COMPARISON: Cervical spine radiograph 10/28/2022. FINDINGS: Redemonstrated posterior instrumented spinal fusion of C3-C4 with rodsand screws. Instrumentation is intact and osseous alignment is unchanged. Slight cervical kyphosis is again noted. Mild anterolisthesis at C4 over C5. No acute fracture or compression deformity. Multilevel degenerative changes are present. The prevertebral soft tissues are normal. IMPRESSION: Redemonstrated C3-C4 posterior instrumented spinal fusion, unchanged. Report dictated by Lenny Viramontes MD (resident care coordinator). I, Felix Antonio MD have personally reviewed and interpreted this examination/study. > Interpreting Provider: Felix Antonio MD on 42:34 PM Garland Fernandez MD DIAGNOSTIC IMAGING O RDERABLES * PROC INJECTION JOINT (SMALL/INTERMED/MAJOR) (12/10/2022 11:41 AM CDT) Narrative Devora Green MD - 12/10/2022 11:41 AM CDT de Min Davidson MD 12/21/2022 10:00 AM After risks, benefits, alternatives were discussed, the patient elected to proceed forward with corticosteroid injection. The appropriate site and side was confirmed with the patient. The left shoulder was prepped with betadine and alcohol. Ethyl Chloride was used to anesthetize the skin. A combination of 8cc's of 1% Lidocaine + 1cc of 40mg Kenalog was injected into the subacromial space off the lateral aspect of the acromion. A sterile bandage was placed. The patient tolerated the procedure well without complications. Post-injection instructions were given to the patient. Devora Green MD PROCEDURE/MINOR SURG ICAL ORDERABLES * XR SHOULDER LEFT 2VW OR MORE (12/10/2022 11:03 AM CDT) Anatomical Region Laterality Modality Upper Extremity Radiographic Mariella ging 12/10/2022 11:1 0 AM CDT Impressions 12/10/2022 12:08 PM CDT IMPRESSION: Mild degenerative change. No acute fracture or dislocation. Report drafted by Ezequiel Cole MD (resident care coordinator) I, Fabio Doe MD have personally reviewed and interpreted this examination/study. > Interpreting Provider: Fabio Doe MD on 12/10/2022 12:08 PM Narrative 12/10/2022 12:08 PM CDT PROCEDURE: XR SHOULDER LEFT 2VW OR MORE, DATE/TIME OF EXAM: 12/10/2022 11:04 AM, LOCATION [facility] INDICATION: M25.512: Left shoulder pain, unspecified chronicity ADDITIONAL CLINICAL INFORMATION: Ordering Provider Reason For Exam: Technologist Note: Additional: COMPARISON: None. FINDINGS: The osseous structures are intact without acute fracture. The glenohumeral and acromioclavicular joints are in anatomic alignment. Mild glenohumeral osteoarthritis with mild joint space narrowing and osteophytes. Osteoarthritis of the acromioclavicular joint is also seen. Procedure Note Fabio Doe MD - 12/10/2022 PROCEDURE: XR SHOULDER LEFT 2VW OR MORE, DATE/TIME OF EXAM: 12/10/2022 11:04 AM, LOCATION [facility] INDICATION: M25.512: Left shoulder pain, unspecified chronicity ADDITIONAL CLINICAL INFORMATION: Ordering Provider Reason For Exam: Technologist Note: Additional: COMPARISON: None. FINDINGS: The osseous structures are intact without acute fracture. Theglenohumeral and acromioclavicular joints are in anatomic alignment. Mildglenohumeral osteoarthritis with mild joint space narrowing and osteophytes. Osteoarthritis of the acromioclavicular joint is also seen. IMPRESSION: Mild degenerative change. No acute fracture or dislocation. Report drafted by Ezequiel Cole MD (resident care coordinator) I, Fabio Doe MD have personally reviewed and interpreted this examination/study. > Interpreting Provider: Fabio Doe MD on 12/10/2022 12:08 PM Devora Green MD DIAGNOSTIC IMAGING O RDERABLES * PAIN MANAGEMENT PROCEDURE TIME (06/02/2022 9:51 AM CDT) Only the most recent of5 resultswithin the time period is included. Anatomical Region Laterality Modality Radio Fluoroscop y Narrative 06/02/2022 9:53 AM CDT Gold Dawson MD 06/02/2022 9:53 AM Lumbar Epidural Steroid Injection of L3 / L4 Level Consent: The patient was identified in the holding area and the operative permit was explained and signed. I have discussed with the patient the risks, benefits, side effects and complications of a fluoroscopically guided lumbar epidural steroid injection with catheter. I have answered the patient's questions regarding the procedure and have given the patient the opportunity to refuse the procedure. I also have discussed alternative methods of treatment. The patient stated understanding of the procedure and wished to proceed with the fluoroscopically guided lumbar epidural steroid injection. Monitoring: The patient was taken to the fluoroscopic suite and placed on a C-arm table in the prone position. Noninvasive blood pressure, pulse oximetry, and an EKG tracing were used to monitor the patient continuously throughout the procedure. A nurse was in attendance for the duration of the procedure to carefully monitor the patient. Please refer to the nursing record for vital sign documentation and for any doses of sedatives and medications. I was present and gave the order for any medications given to the patient. Preparation: Chloroprep preparation was performed twice, then sterile drapes were applied to the sacrococcygeal region. Procedure: The C-arm was positioned in the lateral view to identify the above level L 3/4. A 30 gauge 1 inch was then used to inject 1 ml of Lidocaine 1% for subcutaneous anesthesia. Using fluoroscopic guidance, a 20 gauge 3.5 inch touhy epidural needle was placed into the epidural space. The needle was advanced with Midline placement confirmed in the AP view. Loss of resistance technique is used with NS PF to confirm epidural space entry.After negative aspiration of CSF or blood, 2 ml of Omnipaque (240mg/cc) was injected, which displayed epidural spread. A preservative free solution of 5 ml containing 10 mg dexamethasone and 0.5 % lidocaine was injected. The needle was withdrawn intact. The patient tolerated the procedure well and there were no complications. Recovery: Postprocedure instructions were given to the patient and a follow up appointment was confirmed. The patient was also discharged with information on how to reach the clinic or interrelated special education teacher physician at anytime for questions or complaints. Gold Dawson MD DIAGNOSTIC IMAGING O RDERABLES * XR LUMBAR SPINE 2 OR 3VW (12/03/2021 1:40 PM CDT) Anatomical Region Laterality Modality Spine Radiographic Mariella ging 12/03/2021 2:06 PM CDT Impressions 12/03/2021 5:30 PM CDT IMPRESSION: 1.Levoscoliosis of the lumbar spine. 2.Trace retrolisthesis of L2 on L3. 3.Severe multilevel degenerative changes in the lumbar spine. Dictated by Norma Lanier DO (resident care coordinator). I, Dr. LIZBETH CELESTE M.D. have personally reviewed and interpreted this examination/study. This report was electronically signed by LIZBETH CELESTE M.D. on 12/03/2021 5:30 PM . Narrative 12/03/2021 5:30 PM CDT ORDER DATE: 12/03/2021 1:40 PM EXAMINATION: XR LUMBAR SPINE 2 OR 3VW HISTORY: M48.02: Spinal stenosis of cervical region M54.50: Lumbar back pain COMPARISON: No prior study is available for comparison. FINDINGS: There is levoscoliosis of the lumbar spine centered at L3. There is trace retrolisthesis of L2 on L3. There is no fracture or compression deformity. There are severe degenerative changes in the lumbar spine with endplate sclerosis and osteophytes, disc space narrowing, and facet arthropathy. The sacroiliac joints are normal. There is aortic atherosclerosis. Procedure Note Lizbeth Celeste MD - 12/03/2021 ORDER DATE: 12/03/2021 1:40 PM EXAMINATION: XR LUMBAR SPINE 2 OR 3VW HISTORY: M48.02: Spinal stenosis of cervical region M54.50: Lumbar back pain COMPARISON: No prior study is available for comparison. FINDINGS: There is levoscoliosis of the lumbar spine centered at L3. There istrace retrolisthesis of L2 on L3. There is no fracture or compressiondeformity. There are severe degenerative changes in the lumbar spine with endplate sclerosis and osteophytes, disc space narrowing, and facet arthropathy. The sacroiliac joints are normal. There is aortic atherosclerosis. IMPRESSION: 1.Levoscoliosis of the lumbar spine. 2.Trace retrolisthesis of L2 on L3. 3.Severe multilevel degenerative changes in the lumbar spine. Dictated by Norma Lanier DO (resident care coordinator). I, Dr. LIZBETH CELESTE M.D. have personally reviewed and interpreted this examination/study. This report was electronically signed by LIZBETH CELESTE M.D. on 12/03/2021 5:30 PM . Garland Fernandez MD DIAGNOSTIC IMAGING O RDERABLES * CARDIAC EKG ORDER (10/13/2021 2:35 PM AGRICULTURAL SERVICES DIRECTOR) Narrative 10/13/2021 2:35 PM AGRICULTURAL SERVICES DIRECTOR Ordered by an unspecified provider. Scanned Document CARDIAC SERVICES ORD ERABLES * (ABNORMAL) CBC W/O DIFFERENTIAL (09/30/2021 5:48 AM [facility]) WBC 13.0(H) 3.5 - 10.5 10 3/uL 09/30/2021 6:38 AM [facility] RBC 3.46(L) 4.30 - 5.70 10 6/uL 09/30/2021 6:38 AM [facility] Hemoglobin 11.6(L) 12.0 - 17.6 g/dL 09/30/2021 6:38 AM [facility] Hematocrit 35.0(L) 35.2 - 51.7 % 09/30/2021 6:38 AM [facility] MCV 101.2(H) 80.7 - 98.3 fL 09/30/2021 6:38 AM [facility] MCH 33.5 26.7 - 34.0 pg 09/30/2021 6:38 AM [facility] MCHC 33.1 30.8 - 35.9 g/dL 09/30/2021 6:38 AM [facility] Platelet Count 258 150 - 400 10 3/uL 09/30/2021 6:38 AM [facility] RDW-SD 50.2(H) 36.0 - 50.0 fL 09/30/2021 6:38 AM [facility] RDW-CV 13.5 11.2 - 14.8 % 09/30/2021 6:38 AM [facility] MPV 10.0 9.4 - 12.9 fL 09/30/2021 6:38 AM [facility] nRBC Absolute 0.00 0 10 3/uL 09/30/2021 6:38 AM [facility] nRBC Auto 0.0 0 /100 WBC 09/30/2021 6:38 AM [facility] Blood BLOOD SPECIMEN / Unknown Lab Venipuncture / Unknown 09/30/2021 5:48 AM AGRICULTURAL SERVICES DIRECTOR 09/30/2021 6:20 AM [facility] Garland Fernandez MD LAB - HEMATOLOGY ORD ERABLES [facility] [address] [place] [address], [facility] [phone] * (ABNORMAL) BASIC METABOLIC PANEL (CALCIUM TOTAL) (09/30/2021 5:48 AM [facility]) BUN 18 7 - 26 mg/dL 09/30/2021 6:43 AM [facility] Creatinine 1.00 0.71 - 1.16 mg/dL 09/30/2021 6:43 AM [facility] Sodium 138 136 - 145 mmol/L 09/30/2021 6:43 AM [facility] Potassium 4.3 3.5 - 4.5 mmol/L 09/30/2021 6:43 AM [facility] Chloride 102 98 - 107 mmol/L 09/30/2021 6:43 AM [facility] CO2 26 22 - 29 mmol/L 09/30/2021 6:43 AM [facility] Glucose 104 70 - 115 mg/dL 09/30/2021 6:43 AM [facility] Calcium 9.4 8.4 - 10.2 mg/dL 09/30/2021 6:43 AM [facility] Anion Gap 14 8 - 18 09/30/2021 6:43 AM [facility] BUN/Creatinine Ratio 18 7 - 23 09/30/2021 6:43 AM [facility] Osmolality Calculated 288 270 - 300 mOsm/kg 09/30/2021 6:43 AM [facility] eGFR by CKD-EPI 75(L) >=90 mL/min/1.7 3 m2 09/30/2021 6:43 AM [facility] Blood BLOOD SPECIMEN / Unknown Lab Venipuncture / Unknown 09/30/2021 5:48 AM AGRICULTURAL SERVICES DIRECTOR 09/30/2021 6:20 AM [facility] Garland Fernandez MD LAB - CHEMISTRY FERMIN YI [facility] [address] [place] [address], [place] [phone] * FL DEBRA SURGERY (09/29/2021 12:00 PM AGRICULTURAL SERVICES DIRECTOR) Narrative [facility] - 09/29/2021 12:53 PM AGRICULTURAL SERVICES DIRECTOR Fluoroscopy was used for this exam in the OR. Please see the Operative report. Garland Fernandez MD FLUOROSCOPY ORDERABL ES [facility] * ETT LINE PERFORMABLE (09/29/2021 8:20 AM AGRICULTURAL SERVICES DIRECTOR) Narrative Benjamin Goldberg MD - 09/29/2021 8:20 AM AGRICULTURAL SERVICES DIRECTOR Benjamin Goldberg MD 09/29/2021 8:22 AM Endotracheal Tube Placement: Patient Location: OR. Intubation Event Date/Time: 09/29/2021 7:56 AM Procedure: intubation ([id number]). Procedure Section: Sedation: under general anesthesia. Indications for Airway Management: anesthesia Procedure pretreatments used? No Induction: rapid sequence Patient Position: sniffing and supine Mask Ventilation: not attempted. Blade Type: Video Blade Size: 4 Laryngoscopy View: grade 1 (full cords) Intubation Adjuncts: stylet and video laryngoscope Tube: endotracheal tube Placement: oral Tube type: cuff - inflated Tube Size (MM): 8 Depth of Insertion (CM): 24 Measured From: teeth Cuff Inflated With: air Number of Attempts: 1. Placement Verified By: direct visualization, bilateral breath sounds, chest auscultation and CO2 monitor Tube secured with: adhesive tape. Dentition unchanged? Yes Difficult Airway? No. Procedure Start Time: 09/29/2021 7:56 AM. Staff Section Anesthesia Provider: Penelope Gordon DO, Performed the procedure Provider #1: Benjamin Goldberg MD. Benjamin Goldberg MD GENERAL ANESTHESIA O RDERABLES * IV PLACEMENT PERFORMABLE (09/29/2021 8:09 AM AGRICULTURAL SERVICES DIRECTOR) Narrative Benjamin Goldberg MD - 09/29/2021 8:09 AM AGRICULTURAL SERVICES DIRECTOR Benjamin Goldberg MD 09/29/2021 8:10 AM Peripheral IV Line Placement: Patient Location: OR Procedure: IV start ([id number]). Procedure Section: Skin Prep: Chloraprep. Orientation: right Location: arm Local Anesthetic Used? No Brand Name: Jelco. Catheter Gauge: 16 Catheter Length (in): 1.25 Number of Attempts: 1. Procedure Tolerance: tolerated well. Procedure Start Time: 09/29/2021 7:58 AM. Procedure End Time: 09/29/2021 8:00 AM. Procedure Total Time: 2 minutes. Staff Section Anesthesia Provider: Benjamin Goldberg MD, Performed the procedure Benjamin Goldberg MD GENERAL ANESTHESIA O RDERABLES * BLOOD TYPE VERIFICATION (09/29/2021 7:25 AM AGRICULTURAL SERVICES DIRECTOR) ABO Rh O POS 09/29/2021 8:3 3 AM AGRICULTURAL SERVICES DIRECTOR [facility] Blood Bank BLOOD SPECIMEN / Unknown Lab Venipuncture / Unknown 09/29/2021 7:25 AM AGRICULTURAL SERVICES DIRECTOR 09/29/2021 8:06 AM AGRICULTURAL SERVICES DIRECTOR [facility] - BLO OD BANK ORDERABLES Performing Organization Address [facility]/ZIP Co de Phone Number [facility] [address] [place] [address], [facility] [phone] * TYPE + SCREEN PANEL (09/29/2021 6:45 AM AGRICULTURAL SERVICES DIRECTOR) Antibody Screen NEG 7:47 AM AGRICULTURAL SERVICES DIRECTOR [facility] ABO Rh O POS 09/29/2021 7:47 AM AGRICULTURAL SERVICES DIRECTOR [facility] Blood Bank BLOOD SPECIMEN / Unknown Venipuncture / Unknown 09/29/2021 6:45 AM AGRICULTURAL SERVICES DIRECTOR 09/29/2021 7:02 AM AGRICULTURAL SERVICES DIRECTOR [facility] - BLO OD BANK ORDERABLES [facility] [employer] [facility] [employer] [address] [place] [phone], [employer] [phone] * PTT [facility] (09/25/2021 3:14 PM AGRICULTURAL SERVICES DIRECTOR) APTT 28.8 23.0 - 38.4 Seconds 09/25/2021 3:49 PM AGRICULTURAL SERVICES DIRECTOR [facility] Comment:Suggested therapeuti c range for full dose I.V. unfractionated heparin therapy for venous thromboembolism is 71 to 109 seconds. Blood BLOOD SPECIMEN / Unknown Lab Venipuncture / Unknown 09/25/2021 3:14 PM AGRICULTURAL SERVICES DIRECTOR 09/25/2021 3:24 PM AGRICULTURAL SERVICES DIRECTOR Garland Fernandez MD LAB - COAGULATION OR DERABLES [address] [address], [facility] [phone] * PT-INR [facility] (09/25/2021 3:14 PM AGRICULTURAL SERVICES DIRECTOR) PT 12.8 12.1 - 14.8 Seconds 09/25/2021 3:48 PM AGRICULTURAL SERVICES DIRECTOR [facility] INR 1.0 See Comment 09/25/2021 3:48 PM AGRICULTURAL SERVICES DIRECTOR [facility] Comment:The suggested therap eutic range for standard coumadin (warfarin) therapy is an INR of 2.0-3.0. For high-risk patients (Mechanical Mitral Valve Prosthesis, etc.), the suggested prophylactic therapeutic range is an INR of 2.5-3.5. Blood BLOOD SPECIMEN / Unknown Lab Venipuncture / Unknown 09/25/2021 3:14 PM AGRICULTURAL SERVICES DIRECTOR 09/25/2021 3:24 PM AGRICULTURAL SERVICES DIRECTOR Garland Fernandez MD LAB - COAGULATION OR DERABLES [address] [address], [facility] [phone] * (ABNORMAL) CBC WITH DIFFERENTIAL (09/25/2021 3:14 PM AGRICULTURAL SERVICES DIRECTOR) WBC 7.9 3.5 - 10.5 10 3/uL 09/25/2021 3:34 PM AGRICULTURAL SERVICES DIRECTOR [facility] RBC 4.01(L) 4.30 - 5.70 10 6/uL 09/25/2021 3:34 PM AGRICULTURAL SERVICES DIRECTOR [facility] Hemoglobin 13.8 12.0 - 17.6 g/dL 09/25/2021 3:34 PM [facility] Hematocrit 41.7 35.2 - 51.7 % 09/25/2021 3:34 PM [facility] MCV 104.0(H) 80.7 - 98.3 fL 09/25/2021 3:34 PM [facility] MCH 34.4(H) 26.7 - 34.0 pg 09/25/2021 3:34 PM [facility] MCHC 33.1 30.8 - 35.9 g/dL 09/25/2021 3:34 PM [facility] Platelet Count 291 150 - 400 10 3/uL 09/25/2021 3:34 PM [facility] RDW-SD 54.1(H) 36.0 - 50.0 fL 09/25/2021 3:34 PM [facility] RDW-CV 13.9 11.2 - 14.8 % 09/25/2021 3:34 PM [facility] MPV 9.7 9.4 - 12.9 fL 09/25/2021 3:34 PM [facility] nRBC Absolute 0.00 0 10 3/uL 09/25/2021 3:34 PM [facility] nRBC Auto 0.0 0 /100 WBC 09/25/2021 3:34 PM [facility] Neutrophils % 50.5 35.0 - 70.0 % 09/25/2021 3:34 PM [facility] Lymphocytes % 25.8 20.0 - 43.0 % 09/25/2021 3:34 PM [facility] Monocytes % 9.8 5.0 - 13.0 % 09/25/2021 3:34 PM [facility] Eosinophils % 12.3(H) 0.0 - 6.0 % 09/25/2021 3:34 PM [facility] Basophil % 1.5 0.0 - 2.0 % 09/25/2021 3:34 PM [facility] Neutrophils Absolute 4.0 1.6 - 7.0 10 3/uL 09/25/2021 3:34 PM [facility] Lymphocyte Absolute 2.0 1.1 - 3.9 10 3/uL 09/25/2021 3:34 PM [facility] Monocytes Absolute 0.77 0.26 - 1.07 10 3/uL 09/25/2021 3:34 PM [facility] Eosinophils Absolute 0.97(H) 0.00 - 0.47 10 3/uL 09/25/2021 3:34 PM [facility] Basophils Absolute 0.12(H) 0.00 - 0.08 10 3/uL 09/25/2021 3:34 PM [facility] Immature Granulocytes % 0.1 0.0 - 1.0 % 09/25/2021 3:34 PM [facility] Immature Granulocytes Absolute 0.01 09/25/2021 3:34 PM [facility] Blood BLOOD SPECIMEN / Unknown Lab Venipuncture / Unknown 09/25/2021 3:14 PM AGRICULTURAL SERVICES DIRECTOR 09/25/2021 3:29 PM [facility] Garland Fernandez MD LAB - HEMATOLOGY ORD ERABLES [facility] [address] [place] [address] [phone] * (ABNORMAL) COMPREHENSIVE METABOLIC PANEL (09/25/2021 3:14 PM AGRICULTURAL SERVICES DIRECTOR) BUN 23 7 - 26 mg/dL 09/25/2021 3:56 PM [facility] Creatinine 0.99 0.71 - 1.16 mg/dL 09/25/2021 3:56 PM [facility] Sodium 142 136 - 145 mmol/L 09/25/2021 3:56 PM [facility] Potassium 4.3 3.5 - 4.5 mmol/L 09/25/2021 3:56 PM [facility] Chloride 103 98 - 107 mmol/L 09/25/2021 3:56 PM [facility] CO2 26 22 - 29 mmol/L 09/25/2021 3:56 PM [facility] Glucose 74 70 - 115 mg/dL 09/25/2021 3:56 PM [facility] Calcium 9.9 8.4 - 10.2 mg/dL 09/25/2021 3:56 PM [facility] Protein Total 7.7 6.0 - 8.3 g/dL 09/25/2021 3:56 PM [facility] Albumin 3.8 3.4 - 5.0 g/dL 09/25/2021 3:56 PM [facility] Bilirubin Total 0.5 0.2 - 1.2 mg/dL 09/25/2021 3:56 PM [facility] Alkaline Phosphatase 127 40 - 150 U/L 09/25/2021 3:56 PM [facility] ALT 28 5 - 55 U/L 09/25/2021 3:56 PM [facility] AST 30 5 - 34 U/L 09/25/2021 3:56 PM [facility] Anion Gap 17 8 - 18 09/25/2021 3:56 PM [facility] BUN/Creatinine Ratio 23 7 - 23 09/25/2021 3:56 PM [facility] Osmolality Calculated 296 270 - 300 mOsm/kg 09/25/2021 3:56 PM [facility] Albumin/Globulin Ratio 1.0(L) 1.1 - 2.3 09/25/2021 3:56 PM [facility] eGFR by CKD-EPI 76(L) >=90 mL/min/1.7 3 m2 09/25/2021 3:56 PM [facility] Blood BLOOD SPECIMEN / Unknown Lab Venipuncture / Unknown 09/25/2021 3:14 PM AGRICULTURAL SERVICES DIRECTOR 09/25/2021 3:29 PM AGRICULTURAL SERVICES DIRECTOR Garland Fernandez MD LAB - CHEMISTRY FERMIN YI [facility] Organization Address City/State/ZIP Co de Phone Number [facility] [address] [place] [address], [facility] [phone] * XR CHEST 2VW (09/25/2021 3:11 PM AGRICULTURAL SERVICES DIRECTOR) Anatomical Region Laterality Modality Chest Radiographic Mariella ging 09/25/2021 3:12 PM AGRICULTURAL SERVICES DIRECTOR Impressions 09/25/2021 3:28 PM AGRICULTURAL SERVICES DIRECTOR IMPRESSION: No acute pulmonary process. Dictated by Melissa Chand MD (resident care coordinator). I, Dr. FELIX ANTONIO MD, [facility] have personally reviewed and interpreted this examination/study. This report was electronically signed by FELIX ANTONIO MD, FRCR on 09/25/2021 3:28 PM . Narrative 09/25/2021 3:28 PM AGRICULTURAL SERVICES DIRECTOR EXAMINATION: XR CHEST 2VW HISTORY: M48.02: Cervical spinal stenosis G95.9: Cervical myelopathy Z01.818: Pre-operative clearance COMPARISON: No prior study is available for comparison. FINDINGS: There is a cervical collar in place. There is no focal consolidation, pleural effusion, or pneumothorax. The cardiomediastinal silhouette is normal. The visible bony thorax is intact. Procedure Note Felix Antonio MD - 09/25/2021 EXAMINATION: XR CHEST 2VW HISTORY: M48.02: Cervical spinal stenosis G95.9: Cervical myelopathy Z01.818: Pre-operative clearance COMPARISON: No prior study is available for comparison. FINDINGS: There is a cervical collar in place. There is no focal consolidation, pleural effusion, or pneumothorax. The cardiomediastinal silhouette is normal. The visible bony thorax is intact. IMPRESSION: No acute pulmonary process. Dictated by Melissa Chand MD (resident care coordinator). I, Dr. FELIX ANTONIO MD, [facility] have personally reviewedand interpreted this examination/study. This report was electronically signed by FELIX ANTONIO MD, [facility] on 09/25/2021 3:28 PM . Garland Fernandez MD DIAGNOSTIC IMAGING O RDERABLES * EKG 12-LEAD (09/25/2021 2:33 PM AGRICULTURAL SERVICES DIRECTOR) Ventricular Rate 63 BPM [facility] Atrial Rate 63 BPM [facility] P-R Interval 194 ms [facility] QRS Duration ms 148 ms [facility] Q-T Interval ms 432 ms [facility] QTC Calculation (Bezet) 442 ms [facility] Calculated P [place] 77 degrees [facility] Calculated R [place] -108 degrees [facility] Calculated T [place] 66 degrees [facility] Interpretation EKG SINUS RHYTHM WITH MARKED SINUS ARRYTHMIA LEFT ANTERIOR HEMIBLOCK RIGHT BUNDLE BRANCH BLOCK BIFASCICULAR BLOCK SEPTAL INFARCT , AGE UNDETERMINED Poor R wave progression in precordial leads \ ABNORMAL ECG NO PREVIOUS ECGS AVAILABLE Confirmed by Tiffany FERNÁNDEZ STEVEN ([id number]) on 09/26/2021 8:40:40 PM [facility] 09/25/2021 2:33 PM AGRICULTURAL SERVICES DIRECTOR 09/26/2021 8:40 PM AGRICULTURAL SERVICES DIRECTOR Garland Fernandez MD ECG ORDERABLES [facility] Care Teams Pharmacy Customer Care Specialist Relationship Specialty Start Date End Date Yonatan Bhatti MD [address] [place] [address] PCP - General Family Medicine 10/27/23
--- OUTSIDE RECORDS SUMMARY | 2024-10-24 00:22 | XMS_ITS | Clinical Summary ---
Author Organization [facility] Address [address] 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
--- OUTSIDE RECORDS SUMMARY | 2024-10-24 00:22 | XMS_ITS | Clinical Summary ---
Author Organization [facility] Address [address] [place] [address] Care Team Providers Care Visualizer Name Role Phone Yonatan Bhatti MD Primary Care Provider [phone] Source Comments [facility],non-owned Affiliates and Associated Physician Practices is amultiple site organization consisting of ambulatory clinics and hospital sitesin [place], [place], [place] and [place]. This disclosure is being madepursuant to the Care Everywhere program and may not contain all information available regarding this patient. Last updated 18.[facility] Allergies Active Allergy Reactions Criticality Noted Date [...] ent 12+ yr 0.3mL Purple cap 06/20/2021,12/11/2020,11/11/2020 Family History Relation Name Status Comments Father Mother Social History Tobacco Use Types Packs/Day Years [...] 81.6 kg (180 lb) 10/28/2022 11:05 AM [facility] Height 177.8 cm (5' 10 ) 04/22/2022 1:19 PM CDT Body Mass Index 25.83 04/22/2022 1:19 PM CDT Plan of Treatment Health Maintenance Due Date Last Done Comments COLOGUARD (AGES 45-75) - COL ON CA SCREENING 1949 COLON MONITORING 1949 COLONOSCOPY - COLON CA SCREENING 1949 CT COLONOGRAPHY - COLON CA SCREENING 1949 Colorectal Cancer Screening 1949 FIT - COLON CA SCREENING 1949 FLEX SIG - COLON CA SCREENING 1949 HEPATITIS C SCREENING 06/19/1967 DTAP/TDAP/TD VACCINES (1 - Tdap) 1968 PNEUMOCOCCAL VACCINE 50+ (1 of 2 - PCV) 1968 LUNG CANCER SCREENING 1999 ZOSTER VACCINE (1 of 2) 1999 COVID-19 VACCINE (4 - 2023-2 5 season) 2024 06/20/2021, 12/11/2020, 11/11/2020 INFLUENZA VACCINE (#1) 2024 Respiratory Syncytial Virus (RSV) Vaccine Pt: or over 60 yrs (1 - 1-dose 75+ series) 2024 DEPRESSION SCREENING 09/12/2024 11/03/2023 MEDICARE AWV CALENDAR YEAR 2024 HEPATITIS B VACCINE Aged Out No longe r eligible based on patient's age to complete this topic HIB VACCINE Aged Out No longer eligi ble based on patient's age to complete this topic HPV VACCINE Aged Out No longer eligi ble based on patient's age to complete this topic MENINGOCOCCAL (Group B) VACCINE Aged Out No longer eligible b ased on patient's age to complete this topic MENINGOCOCCAL VACCINE Aged Out No rustam jefry eligible based on patient's age to complete this topic Medical Devices Implanted Type Area Corporate Administrative Assistant Device Identifier Shelf Expiration Date Model / Serial / Lot Reline-C Renzo Ti 3.5 X 50 Mm, Pre Bent Implanted:Qty: 2 on 09/29/2021 by Garland Fernandez MD at [facility] Other (Type not listed) Bilateral: Spine Cervical [id number] / / Description:Reline-C renzo TI 3.5 x 50 mm, pre bent Tyson Bone Void 10ml Dbm Grftn Algrf Ptty - [id number] Implanted:Qty: 1 on 09/29/2021 by Garland Fernandez MD at [facility] Other (Type not listed) N/A: Spine Cervical Medtronic Sofamor Danek Spine [id number] / [id number] / Description:bone putty Reline-C Lockscrew Implanted:Qty: 4 on 09/29/2021 by Garland Fernandez MD at [facility] Screw Bilateral: Spine Cervical Nuvasive [id number] / / Description:Reline- C Locksc rew Reline-C Screw 3.5 X 14 Ma Implanted:Qty: 2 on 09/29/2021 by Garland Fernandez MD at [facility] Screw Bilateral: Spine Cervical Nuvasive [id number] / / Reline-C Screw 3.5x 16 Ma Implanted:Qty: 2 on 09/29/2021 by Garland Fernandez MD at [facility] Screw Bilateral: Spine Cervical Nuvasive [id number] / / Advance Directives * Full Code (Latest Code Status on File) Date Activated Date Inactivated Comments 09/29/2021 4:27 PM 10/01/2021 1:38 PM Care Teams Visualizer Relationship Specialty Start Date End Date Yonatan Bhatti MD [address] [place] [id number] PCP - General Family Medicine 10/27/23
--- OUTSIDE RECORDS SUMMARY | 2024-10-24 00:22 | XMS_ITS | Encounter Summary ---
Author Organization [employer] Address 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
--- NOTE | 2024-10-24 06:52 | P.HP_ITS ---
History of Present Illness History of Present Illness Chief complaint: left ring trigger finger Narrative: Patient seen and examined in pre-operative holding area. No interval change in medical history or symptoms. Patient recalls previous discussion of benefits and alternatives to procedure. Continues to desire to proceed with left ring finger fasciectomy and a1 alina release. Reviewed procedure, post-op expectations and risks including but not limited to bleeding, infection, injury to tendon/nerve/vessel, decreased hand function, stiffness, RSD, no change or worsening of symptoms, recurrence, incomplete release. I discussed the possible use of assistants and their participation in the case. Patient stated understanding and signed the consent form wishing to proceed. Review of Systems Review of Systems: All systems reviewed & are unremarkable except as noted in HPI and below PMFSH Past Medical History Medical History Skin lesion of right ear Ulnar nerve compression Chronic pain Axonal neuropathy Lumbar spondylosis with myelopathy Cervical spondylosis with myelopathy and radiculopathy Left arm weakness Left leg weakness Urinary incontinence BPH loc w urin obs/LUTS Hand numbness Alcohol abuse Hx of adenomatous colonic polyps Collagenous colitis Trigger finger, left middle finger Left hip pain Bronchitis Benign prostatic hyperplasia Hypertension Spondylosis Chronic back pain Daily consumption of alcohol Tobacco use Gastroesophageal reflux disease Generalized anxiety disorder COVID-19 (09/29/20) Cigarette smoker History of colon polyps Essential (primary) hypertension Mixed hyperlipidemia Surgical History Surgical History H/O cervical spinal arthrodesis History of colonoscopy with polypectomy History of transurethral resection of prostate History of laparoscopic appendectomy (04/02/21) Status post trigger finger release History of lumbar laminectomy Family History Family History Father Acute myocardial infarction Atherosclerosis of aorta Heart disease Mother Family history of lung cancer Tobacco abuse Sibling No problems noted. Sibling Family history of malignant neoplasm of brain Meningitis Glioblastoma Social History Social History Social History: Surrogate decision maker: Michelle Tatum, spouse. Code status: Full code. Smoking packs per day: 1 Smoking cigarettes per day: 20.0 Years smoked: 60 Smoking pack-years: 60.00 Smoking status: Current every day smoker Tobacco type: cigarettes Second hand tobacco smoke exposure: Yes Alcohol intake: current Drinks per week: 12 Alcohol use details: 5-6 beers/day Substance use: current Substance use type: marijuana Other substance usage details: smokes QOD Do You Feel Safe in your Home?: Yes Lack of Transportation: No Lack of Food: Never True Current Housing: I Have Housing Concerned About Future Housing: No Difficulty Paying Gas/Electric Bills: No Difficulty Paying for Meds: No Currently Unemployed: No Education: Associate Degree Difficulty w/ Childcare or Family Care: No Living arrangements: with family Additional living arrangements comments: Occupation/Education: retired 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 Gender identity (if verbalized by the patient): Male Spiritual care concerns: No Meds Home Medications and Allergies Home Medications ?Medication ?Instructions ?Recorded ?Confirmed ?Type aspirin 81 mg tablet,delayed 81 mg PO DAILY 11/16/19 10/24/24 History release ascorbic acid (vitamin C) 1,000 mg 1 g PO DAILY 12/03/22 10/24/24 History capsule cholecalciferol (vitamin D3) 125 125 mcg PO DAILY 12/03/22 10/24/24 History mcg (5,000 unit) capsule amsbvkld-smh-ajbbu 120 mcg-lutein 1 tablet PO DAILY 12/03/22 10/24/24 History 150 mcg-herb 50 mg chewable tablet (Alive Men's 50 Plus Multivitamin) peg 400 0.4 %-propylene glycol 1 drp EACH EYE QHS PRN dry eyes 12/03/22 10/24/24 History (PF) 0.3 % eye drops (Systane Hydration (PF)) vitamin E mixed 400 unit capsule 400 unit PO DAILY 12/03/22 10/24/24 History thiamine HCl (vitamin B1) 100 mg 100 mg PO DAILY #90 tabs 01/28/23 10/24/24 Rx tablet lisinopril 20 mg tablet 20 mg PO DAILY hypertension #90 08/26/23 10/24/24 Rx tabs trazodone 50 mg tablet 50 mg PO HS #90 tabs 01/23/24 10/24/24 Rx celecoxib 200 mg capsule (Celebrex) 200 mg PO BID #60 caps 02/03/24 10/24/24 Rx cyclobenzaprine 10 mg tablet See Rx Instructions .Route 02/03/24 10/24/24 Rx .COMPLEX #60 tabs folic acid 1 mg tablet 1 mg PO DAILY #90 tabs 02/07/24 10/24/24 Rx atorvastatin 20 mg tablet See Rx Instructions .Route 03/27/24 10/24/24 Rx .COMPLEX #90 tabs finasteride 5 mg tablet See Rx Instructions .Route 03/30/24 10/24/24 Rx .COMPLEX #90 tabs mecobalamin (vitamin B12) 1,000 1,000 mcg sublingual DAILY 05/07/24 10/24/24 History mcg disintegrating tablet,sublingual selenium 200 mcg tablet 200 mcg PO DAILY 05/07/24 10/24/24 History alprazolam 1 mg tablet (Xanax) 1 mg PO QHS PRN sleep #30 tabs 06/15/24 10/19/24 Rx gabapentin 300 mg capsule 900 mg (3 x 300 mg) PO BID #540 08/27/24 10/24/24 Rx caps mirabegron 25 mg tablet,extended 25 mg PO DAILY #90 tabs 08/27/24 10/24/24 Rx release 24 hr (Myrbetriq) budesonide 3 mg See Rx Instructions .Route 09/18/24 10/24/24 Rx capsule,delayed,extended release .COMPLEX #222 ea Allergies Allergy/AdvReac Type Severity Reaction Status Date / Time pseudoephedrine (From Allergy Mild RAPID Verified 10/24/24 08:09 Sudafed) HEART BEAT Exam Narrative: unchanged Assessment and Plan Assessment and plan (1) Trigger finger, left ring finger: Code(s): M65.342 - Trigger finger, left ring finger Status: Acute Assessment and Plan: cont as above (2) Dupuytren contracture: Code(s): M72.0 - Palmar fascial fibromatosis [Dupuytren] Status: Acute
--- NOTE | 2024-10-24 06:52 | P.OP_ITS ---
Procedure Note - Detailed Date of Procedure 10/24/24 Pre-op Diagnosis left ring trigger finger and dupuytren contracture Post-op Diagnosis Same Procedure Performed left ring finger fasciectomy and a1 alina release. Surgeon Jess Blank MD Certified Tower Climber teofilo gibbs pa-c Anesthesia MAC Description of Procedure INFORMED CONSENT: The patient was seen and examined and marked in the pre-op area.? The patient signed the consent form. PROCEDURE IN DETAIL:The patient taken back to OR on the stretcher in supine position. Time out performed with anesthesia, surgeon and staff agreeing on patient's name site and surgery to be performed SCDs were placed on the lower extremities and inflated. A tourniquet was placed on {left} upper extremity and antibiotics given IV After anesthesia administered sedation I injected {5}cc 1%lido and 0.5% marcaine plain at the operative site The?{left upper extremity}?was prepped and draped in sterile fashion the??{left upper extremity} was? exsanguinated with Esmarch bandage and tourniquet inflated to 250mmHg I proceeded with making a longitudinal incision over the left ring finger dupuytren cord going obliquely across flexion creases through skin and dermis with a 15 blade scalpel. Skin flaps were elevated and littler scissors was used to circumferentially dissect around the cord proximally near its origin in the palm. The cord was transected prxoximally near origin and then I proceeded with anterograde dissection until there was full release of the mpj and pipjoint. The neurovascular bundles were protected throughout the procedure. Next, using littler scissors I spread down the the left ring finger a1 alina. The alina was initially incised with 15 blade then littler scissors used to spread above and below it proximally and distally and I completed the transection entirely. Ragnell retractors were used to withdraw the fds and fdp tendons for inspection which were free of masses and synovitis and gliding smoothly in the sheath. I irrigated with normal saline and closed skin with 4-0 chromic. A dressing of xeroform, 4x4, saulo, and an glenn bandage was applied after the tourniquet was let down noting the hand was warm and well perfused. The patient was then awaken from anesthesia and transferred to the recovery room in stable condition.? Complications - none EBL- 0cc Disposition - home in stable conditions teofilo Gibbs PA-C was essential for positioning, retraction, closure and dressing placement [facility] Billing Surgery - Charge Forward: Surgery Billing ([id number] same for teofilo modifier )
[2024-10-24 08:00] VITALS: BP 163/70; PULSE 62; RESP 16; TEMP 36.3; O2SAT 100; BMI 22.8
[2024-10-24] MEDS: LACTATED RINGERS 1,000 ML 30 ML IV CONT (08:35)
[2024-10-24] MEDS: LIDOCAINE 1% LOCAL INJ 20 ML VIAL 10 ML INFILTRATE (08:45)
--- NOTE | 2024-10-24 09:28 | WPDANESEPPF ---
Anes - Initial Pre Proc Eval Procedure: Operation Date: 10/24/24 10:00 Proposed Procedures p Left Ring Finger A-1 Mainor Release with Fasciectomy - Jess Blank MD Date/Time: 10/24/24 09:28 Surgeon: Jess Blank MD Pre Op Diagnosis: left ring trigger finger Patient Data Age: 74 Gender: M Height: 1.77 m Weight: 71 kg Last Vital Signs Temp 97.3 F L 10/24/24 08:00 Pulse 62 10/24/24 08:00 Resp 16 10/24/24 08:00 BP 163/70 H 10/24/24 08:00 Pulse Ox 100 10/24/24 08:00 Allergies Allergy/AdvReac Type Severity Reaction Status Date / Time pseudoephedrine (From Allergy Mild RAPID Verified 10/24/24 08:09 Sudafed) HEART BEAT Home Medications ?Medication ?Instructions ?Recorded ?Confirmed ?Type aspirin 81 mg tablet,delayed 81 mg PO DAILY 11/16/19 10/24/24 History release ascorbic acid (vitamin C) 1,000 mg 1 g PO DAILY 12/03/22 10/24/24 History capsule cholecalciferol (vitamin D3) 125 125 mcg PO DAILY 12/03/22 10/24/24 History mcg (5,000 unit) capsule wyaiayej-pfw-ywvcy 120 mcg-lutein 1 tablet PO DAILY 12/03/22 10/24/24 History 150 mcg-herb 50 mg chewable tablet (Alive Men's 50 Plus Multivitamin) peg 400 0.4 %-propylene glycol 1 drp EACH EYE QHS PRN dry eyes 12/03/22 10/24/24 History (PF) 0.3 % eye drops (Systane Hydration (PF)) vitamin E mixed 400 unit capsule 400 unit PO DAILY 12/03/22 10/24/24 History thiamine HCl (vitamin B1) 100 mg 100 mg PO DAILY #90 tabs 01/28/23 10/24/24 Rx tablet lisinopril 20 mg tablet 20 mg PO DAILY hypertension #90 08/26/23 10/24/24 Rx tabs trazodone 50 mg tablet 50 mg PO HS #90 tabs 01/23/24 10/24/24 Rx celecoxib 200 mg capsule (Celebrex) 200 mg PO BID #60 caps 02/03/24 10/24/24 Rx cyclobenzaprine 10 mg tablet See Rx Instructions .Route 02/03/24 10/24/24 Rx .COMPLEX #60 tabs folic acid 1 mg tablet 1 mg PO DAILY #90 tabs 02/07/24 10/24/24 Rx atorvastatin 20 mg tablet See Rx Instructions .Route 03/27/24 10/24/24 Rx .COMPLEX #90 tabs finasteride 5 mg tablet See Rx Instructions .Route 03/30/24 10/24/24 Rx .COMPLEX #90 tabs mecobalamin (vitamin B12) 1,000 1,000 mcg sublingual DAILY 05/07/24 10/24/24 History mcg disintegrating tablet,sublingual selenium 200 mcg tablet 200 mcg PO DAILY 05/07/24 10/24/24 History alprazolam 1 mg tablet (Xanax) 1 mg PO QHS PRN sleep #30 tabs 06/15/24 10/19/24 Rx gabapentin 300 mg capsule 900 mg (3 x 300 mg) PO BID #540 08/27/24 10/24/24 Rx caps mirabegron 25 mg tablet,extended 25 mg PO DAILY #90 tabs 08/27/24 10/24/24 Rx release 24 hr (Myrbetriq) budesonide 3 mg See Rx Instructions .Route 09/18/24 10/24/24 Rx capsule,delayed,extended release .COMPLEX #222 ea Patient hx anesthesia problems: none Family hx anesthesia problems: none Results Review: All pre-operative results and documents have been reviewed as part of the pre-operative evaluation. [facility] Past Medical History Medical History Skin lesion of right ear Ulnar nerve compression Chronic pain Axonal neuropathy Lumbar spondylosis with myelopathy Cervical spondylosis with myelopathy and radiculopathy Left arm weakness Left leg weakness Urinary incontinence BPH loc w urin obs/LUTS Hand numbness Alcohol abuse Hx of adenomatous colonic polyps Collagenous colitis Trigger finger, left middle finger Left hip pain Bronchitis Benign prostatic hyperplasia Hypertension Spondylosis Chronic back pain Daily consumption of alcohol Tobacco use Gastroesophageal reflux disease Generalized anxiety disorder COVID-19 (09/29/20) Cigarette smoker History of colon polyps Essential (primary) hypertension Mixed hyperlipidemia Surgical History Surgical History H/O cervical spinal arthrodesis History of colonoscopy with polypectomy History of transurethral resection of prostate History of laparoscopic appendectomy (04/02/21) Status post trigger finger release History of lumbar laminectomy Family History Family History Father Acute myocardial infarction Atherosclerosis of aorta Heart disease Mother Family history of lung cancer Tobacco abuse Sibling No problems noted. Sibling Family history of malignant neoplasm of brain Meningitis Glioblastoma Social History Social History Social History: Surrogate decision maker: Michelle Tatum, spouse. Code status: Full code. Smoking packs per day: 1 Smoking cigarettes per day: 20.0 Years smoked: 60 Smoking pack-years: 60.00 Smoking status: Current every day smoker Tobacco type: cigarettes Second hand tobacco smoke exposure: Yes Alcohol intake: current Drinks per week: 12 Alcohol use details: 5-6 beers/day Substance use: current Substance use type: marijuana Other substance usage details: smokes QOD Do You Feel Safe in your Home?: Yes Lack of Transportation: No Lack of Food: Never True Current Housing: I Have Housing Concerned About Future Housing: No Difficulty Paying Gas/Electric Bills: No Difficulty Paying for Meds: No Currently Unemployed: No Education: Associate Degree Difficulty w/ Childcare or Family Care: No Living arrangements: with family Additional living arrangements comments: Occupation/Education: retired 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 HTN, hyperlipidemia, smoker, 1 ppd smoked this am. Informed Consent: The patient's anesthetic plan and its attendant risks and benefits were discussed with the patient/family/POA. Questions were solicited and answers provided to the satisfaction of the patient/family/POA.
[2024-10-24 10:07] VITALS: BP 125/67; PULSE 69; RESP 14; O2SAT 99
[2024-10-24 10:30] VITALS: BP 138/72; PULSE 62
== END 2024-10-24 10:50 | disposition home or self-care (01) ==
PROVIDERS: PCP Family Medicine; Visit Provider Plastic Surgery
PROC: (CPT 26055; principal; 2024-10-24 10:00)
DX: M72.0 Palmar fascial fibromatosis [Dupuytren] (principal); M65.342 Trigger finger, left ring finger; F17.210 Nicotine dependence, cigarettes, uncomplicated; F12.90 Cannabis use, unspecified, uncomplicated
CPT/HCPCS: 26123; 88304; J1100; J2003; J2405; J2704; J3010; J7120

== ENCOUNTER 2024-11-26 00:16 | Day surgery (SDC) | payer MEDICARE, SELFPAY ==
[2024-11-19 15:11] VITALS: BMI 23.0
--- OUTSIDE RECORDS SUMMARY | 2024-11-26 00:19 | XMS_ITS | Clinical Summary ---
Author Organization [facility] Address [address] [place] [address] Care Team Providers Care Typing Office Worker Name Role Phone Yonatan Bhatti MD Primary Care Provider [phone] Source Comments [facility],non-owned Affiliates and Associated Physician Practices is amultiple site organization consisting of ambulatory clinics and hospital sitesin [place], [place], [place] and [place]. This disclosure is being madepursuant to the Care Everywhere program and may not contain all information available regarding this patient. 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 Height 177.8 cm (5' 10 ) 04/22/2022 [...] complete this topic MENINGOCOCCAL (Group B) VACCINE SHARED DECISION-MAKING Aged Out No longer eligible based on patient's age to complete this topic MENINGOCOCCAL GROUPS A/C/Y/W VACCINE Aged Out No longer eligible b ased on patient's age to complete this topic Medical Devices Implanted Type Area Metalizing Supervisor Device Identifier Shelf Expiration Date Model / Serial / Lot Reline-C Renzo Ti 3.5 X 50 Mm, Pre Bent Implanted:Qty: 2 on 09/29/2021 by Garland Fernandez MD at [facility] Other (Type not listed) Bilateral: Spine Cervical [id number] / / Description:Reline-C renzo TI 3.5 x 50 mm, pre bent Tyson Bone Void 10ml Db Grftn Algrf Ptty - [id number] Implanted:Qty: 1 on 09/29/2021 by Garland Fernandez MD at [facility] Other (Type not listed) N/A: Spine Cervical Medtronic Sofamor [place] Spine [id number] / [id number] / Description:bone putty Reline-C Lockscrew Implanted:Qty: 4 on 09/29/2021 by Garland Fernandez MD at [facility] Screw Bilateral: Spine Cervical Nuvasive [id number] / / Description:Reline- C Locksc rew Reline-C Screw 3.5 X 14 Ma Implanted:Qty: 2 on 09/29/2021 by Garland Fernandez MD at [facility] Screw Bilateral: Spine Cervical Nuvasive [id number] / / Reline-C Screw 3.5x 16 Ma Implanted:Qty: 2 on 09/29/2021 by Garland Fernandez MD at [facility] Screw Bilateral: Spine Cervical Nuvasive [id number] / / Advance Directives * Full Code (Latest Code Status on File) Date Activated Date Inactivated Comments 09/29/2021 4:27 PM 10/01/2021 1:38 PM Care Teams Typing Office Worker Relationship Specialty Start Date End Date Yonatan Bhatti MD [address] [place] [address] PCP - General Family Medicine 10/27/23
--- OUTSIDE RECORDS SUMMARY | 2024-11-26 00:19 | XMS_ITS | Patient Health Summary ---
Author Organization [facility] Address [address] [place] [address] Care Team Providers Care Records Manager Name Role Phone Yonatan Bhatti MD Primary Care Provider [phone] Note from [facility],non-owned Affiliates and Associated Physician Practices is amultiple site organization consisting of ambulatory clinics and hospital sitesin [place], [place], [place] and [place]. This disclosure is being madepursuant to the Care Everywhere program and may not contain all information available regarding this patient. Last updated 18.[facility] Allergies * Pseudoephedrine Base(Palpitations) -High Criticality [...] 81.6 kg (180 lb) 10/28/2022 11:05 AM PINION POLISHER Height 177.8 cm (5' 10 ) 04/22/2022 1:19 PM CDT Body Mass Index 25.83 04/22/2022 1:19 PM CDT Medical Devices Implanted Type Area Broacher Device Identifier Shelf Expiration Date Model / Serial / Lot Reline-C Renzo Ti 3.5 X 50 Mm, Pre Bent Implanted:Qty: 2 on 09/29/2021 by Garland Fernandez MD at [facility] Other (Type not listed) Bilateral: Spine Cervical [id number] / / Description:Reline-C renzo TI 3.5 x 50 mm, pre bent Tyson Bone Void 10ml Dbm Grftn Algrf Ptty - [id number] Implanted:Qty: 1 on 09/29/2021 by Garland Fernandez MD at [facility] Other (Type not listed) N/A: Spine Cervical Medtronic Sofamor Danek Spine [id number] / [id number] / Description:bone putty Reline-C Lockscrew Implanted:Qty: 4 on 09/29/2021 by Garland Fernandez MD at [facility] Screw Bilateral: Spine Cervical Nuvasive [id number] / / Description:Reline- C Locksc rew Reline-C Screw 3.5 X 14 Ma Implanted:Qty: 2 on 09/29/2021 by Garland Fernandez MD at [facility] Screw Bilateral: Spine Cervical Nuvasive [id number] / / Reline-C Screw 3.5x 16 Ma Implanted:Qty: 2 on 09/29/2021 by Garland Fernandez MD at [facility] Screw Bilateral: Spine Cervical Nuvasive [id number] / / Procedures * MRI CERVICAL SPINE [...] CERVICAL SPINE WO CONTRAST (10/31/2023 7:46 AM PINION POLISHER) Anatomical Region Laterality Modality Pelvis Magnetic Resonan ce 10/31/2023 4:36 PM PINION POLISHER Impressions 11/01/2023 8:12 AM PINION POLISHER IMPRESSION: 1. Multilevel degenerative disc and joint [...] 11/01/2023 8:12 AM Narrative 11/01/2023 8:12 AM PINION POLISHER PROCEDURE: MRI CERVICAL SPINE WO CONTRAST DATE/TIME OF EXAM: 10/31/2023 7:46 AM CLINICAL INFORMATION: None relevant/not provided if blank. Indication: M48.02: Spinal stenosis of cervical region G95.9: Cervical myelopathy ([facility]) Additional History: COMPARISON: Cervical spine radiographs 10/28/2022 [...] SPINE 2 OR 3VW (10/27/2023 11:48 AM PINION POLISHER) Only the most recent of9 resultswithin the time period is included. Anatomical Region Laterality Modality Spine Radiographic Mariella ging 10/27/2023 1:51 PM PINION POLISHER Impressions 10/27/2023 2:34 PM PINION POLISHER IMPRESSION: Redemonstrated C3-C4 posterior instrumented spinal fusion, unchanged. Report dictated by Lenny Viramontes MD (residential field manager). I, Felix Antonio MD have personally reviewed and interpreted this examination/study. > Interpreting Provider: Felix Antonio MD on 10/27/2023 2:34 PM Narrative 10/27/2023 2:34 PM PINION POLISHER PROCEDURE: XR CERVICAL SPINE 2 OR 3VW, DATE/TIME OF EXAM: 10/27/2023 11:48 AM, LOCATION [facility] INDICATION: M48.02: Spinal stenosis of cervical region G95.9: Cervical myelopathy ([facility]) Z98.1: S/P cervical spinal fusion COMPARISON: Cervical [...] 3VW, DATE/TIME OF EXAM: 1:48 AM, LOCATION [facility] INDICATION: M48.02: Spinal stenosis of cervical region G95.9: Cervical myelopathy ([facility]) Z98.1: S/P cervical spinal fusion COMPARISON: Cervical [...] unchanged. Report dictated by Lenny Viramontes MD (residential field manager). I, Felix Antonio MD have personally reviewed [...] dislocation. Report drafted by Ezequiel Cole MD (residential field manager) I, Fabio Doe MD have personally reviewed and interpreted this examination/study. > Interpreting Provider: Fabio Doe MD on 12/10/2022 12:08 PM Narrative 12/10/2022 12:08 PM CDT PROCEDURE: XR SHOULDER LEFT 2VW OR MORE, DATE/TIME OF EXAM: 12/10/2022 11:04 AM, LOCATION [facility] INDICATION: M25.512: Left shoulder pain, unspecified chronicity [...] DATE/TIME OF EXAM: 12/10/2022 11:04 AM, LOCATION [facility] INDICATION: M25.512: Left shoulder pain, unspecified chronicity [...] dislocation. Report drafted by Ezequiel Cole MD (residential field manager) I, Fabio Doe MD have personally reviewed [...] on how to reach the clinic or male impersonator physician at anytime for questions or complaints. [...] lumbar spine. Dictated by Norma Lanier DO (residential field manager). I, Dr. LIZBETH CELESTE M.D. have personally [...] lumbar spine. Dictated by Norma Lanier DO (residential field manager). I, Dr. LIZBETH CELESTE M.D. have personally reviewed and interpreted this examination/study. This report was electronically signed by LIZBETH CELESTE M.D. on 12/03/2021 5:30 PM . Garland Fernandez MD DIAGNOSTIC IMAGING O RDERABLES * CARDIAC EKG ORDER (10/13/2021 2:35 PM PINION POLISHER) Narrative 10/13/2021 2:35 PM PINION POLISHER Ordered by an unspecified provider. Scanned Document CARDIAC SERVICES ORD ERABLES * (ABNORMAL) CBC W/O DIFFERENTIAL (09/30/2021 5:48 AM [facility]) WBC 13.0(H) 3.5 - 10.5 10 3/uL 09/30/2021 6:38 AM [facility] RBC 3.46(L) 4.30 - 5.70 10 6/uL 09/30/2021 6:38 AM [facility] Hemoglobin 11.6(L) 12.0 - 17.6 g/dL 09/30/2021 6:38 AM [facility] Hematocrit 35.0(L) 35.2 - 51.7 % 09/30/2021 6:38 AM [facility] MCV 101.2(H) 80.7 - 98.3 fL 09/30/2021 6:38 AM [facility] MCH 33.5 26.7 - 34.0 pg 09/30/2021 6:38 AM [facility] MCHC 33.1 30.8 - 35.9 g/dL 09/30/2021 6:38 AM [facility] Platelet Count 258 150 - 400 10 3/uL 09/30/2021 6:38 AM [facility] RDW-SD 50.2(H) 36.0 - 50.0 fL 09/30/2021 6:38 AM [facility] RDW-CV 13.5 11.2 - 14.8 % 09/30/2021 6:38 AM [facility] MPV 10.0 9.4 - 12.9 fL 09/30/2021 6:38 AM [facility] nRBC Absolute 0.00 0 10 3/uL 09/30/2021 6:38 AM [facility] nRBC Auto 0.0 0 /100 WBC 09/30/2021 6:38 AM [facility] Blood BLOOD SPECIMEN / Unknown Lab Venipuncture / Unknown 09/30/2021 5:48 AM PINION POLISHER 09/30/2021 6:20 AM [facility] Garland Fernandez MD LAB - HEMATOLOGY ORD ERABLES [facility] [address] [place] [address], [facility] [phone] * (ABNORMAL) BASIC METABOLIC PANEL (CALCIUM TOTAL) (09/30/2021 5:48 AM [facility]) BUN 18 7 - 26 mg/dL 09/30/2021 6:43 AM [facility] Creatinine 1.00 0.71 - 1.16 mg/dL 09/30/2021 6:43 AM [facility] Sodium 138 136 - 145 mmol/L 09/30/2021 6:43 AM [facility] Potassium 4.3 3.5 - 4.5 mmol/L 09/30/2021 6:43 AM [facility] Chloride 102 98 - 107 mmol/L 09/30/2021 6:43 AM [facility] CO2 26 22 - 29 mmol/L 09/30/2021 6:43 AM [facility] Glucose 104 70 - 115 mg/dL 09/30/2021 6:43 AM [facility] Calcium 9.4 8.4 - 10.2 mg/dL 09/30/2021 6:43 AM [facility] Anion Gap 14 8 - 18 09/30/2021 6:43 AM [facility] BUN/Creatinine Ratio 18 7 - 23 09/30/2021 6:43 AM [facility] Osmolality Calculated 288 270 - 300 mOsm/kg 09/30/2021 6:43 AM [facility] eGFR by CKD-EPI 75(L) >=90 mL/min/1.7 3 m2 09/30/2021 6:43 AM [facility] Blood BLOOD SPECIMEN / Unknown Lab Venipuncture / Unknown 09/30/2021 5:48 AM PINION POLISHER 09/30/2021 6:20 AM [facility] Garland Fernandez MD LAB - CHEMISTRY ORDE KASSIDY [facility] [address] [place] [address], [place] [phone] * FL DEBRA SURGERY (09/29/2021 12:00 PM PINION POLISHER) Narrative [facility] - 09/29/2021 12:53 PM PINION POLISHER Fluoroscopy was used for this exam in the OR. Please see the Operative report. Garland Fernandez MD FLUOROSCOPY ORDERABL ES [facility] * ETT LINE PERFORMABLE (09/29/2021 8:20 AM PINION POLISHER) Narrative Benjamin Goldberg MD - 09/29/2021 8:20 AM PINION POLISHER Benjamin Goldberg MD 09/29/2021 8:22 AM Endotracheal Tube Placement: Patient Location: OR. Intubation Event Date/Time: 09/29/2021 7:56 AM Procedure: intubation ([id number]). Procedure Section: Sedation: under general anesthesia. Indications [...] * IV PLACEMENT PERFORMABLE (09/29/2021 8:09 AM PINION POLISHER) Narrative Benjamin Goldberg MD - 09/29/2021 8:09 AM PINION POLISHER Benjamin Goldberg MD 09/29/2021 8:10 AM Peripheral IV Line Placement: Patient Location: OR Procedure: IV start ([id number]). Procedure Section: Skin Prep: Chloraprep. Orientation: right [...] * BLOOD TYPE VERIFICATION (09/29/2021 7:25 AM PINION POLISHER) ABO Rh O POS 09/29/2021 8:3 3 AM PINION POLISHER [facility] Blood Bank BLOOD SPECIMEN / Unknown Lab Venipuncture / Unknown 09/29/2021 7:25 AM PINION POLISHER 09/29/2021 8:06 AM PINION POLISHER [facility] - BLO OD BANK ORDERABLES Performing Organization Address City/[facility]/ZIP Co de Phone Number [facility] [address] [place] [address], [facility] [phone] * TYPE + SCREEN PANEL (09/29/2021 6:45 AM PINION POLISHER) Antibody Screen NEG 7:47 AM [facility] ABO Rh O POS 09/29/2021 7:47 AM [facility] LAB Blood Bank BLOOD SPECIMEN / Unknown Venipuncture / Unknown 09/29/2021 6:45 AM PINION POLISHER 09/29/2021 7:02 AM PINION POLISHER [facility] LAB - BLO OD BANK ORDERABLES [facility] BLOOD [employer] [facility] [employer] [facility] [address] [place] [phone], [employer] [phone] * PTT [facility] (09/25/2021 3:14 PM PINION POLISHER) APTT 28.8 23.0 - 38.4 Seconds 09/25/2021 3:49 PM PINION POLISHER [facility] Comment:Suggested therapeuti c range for full dose I.V. unfractionated heparin therapy for venous thromboembolism is 71 to 109 seconds. Blood BLOOD SPECIMEN / Unknown Lab Venipuncture / Unknown 09/25/2021 3:14 PM PINION POLISHER 09/25/2021 3:24 PM PINION POLISHER Garland Fernandez MD LAB - COAGULATION OR DERABLES Performing Organization Address City/[facility]/ZIP Co de Phone Number [address] [address], [facility] [phone] * PT-INR [facility] (09/25/2021 3:14 PM PINION POLISHER) PT 12.8 12.1 - 14.8 Seconds 09/25/2021 3:48 PM PINION POLISHER [facility] INR 1.0 See Comment 09/25/2021 3:48 PM PINION POLISHER [facility] Comment:The suggested therap eutic range for standard coumadin (warfarin) therapy is an INR of 2.0-3.0. For high-risk patients (Mechanical Mitral Valve Prosthesis, etc.), the suggested prophylactic therapeutic range is an INR of 2.5-3.5. Blood BLOOD SPECIMEN / Unknown Lab Venipuncture / Unknown 09/25/2021 3:14 PM PINION POLISHER 09/25/2021 3:24 PM PINION POLISHER Garland Fernandez MD LAB - COAGULATION OR DERABLES [address] [address], [facility] [phone] * (ABNORMAL) CBC WITH DIFFERENTIAL (09/25/2021 3:14 PM PINION POLISHER) WBC 7.9 3.5 - 10.5 10 3/uL 09/25/2021 3:34 PM PINION POLISHER [facility] RBC 4.01(L) 4.30 - 5.70 10 6/uL 09/25/2021 3:34 PM PINION POLISHER [facility] Hemoglobin 13.8 12.0 - 17.6 g/dL 09/25/2021 3:34 PM [facility] Hematocrit 41.7 35.2 - 51.7 % 09/25/2021 3:34 PM [facility] MCV 104.0(H) 80.7 - 98.3 fL 09/25/2021 3:34 PM [facility] MCH 34.4(H) 26.7 - 34.0 pg 09/25/2021 3:34 PM [facility] MCHC 33.1 30.8 - 35.9 g/dL 09/25/2021 3:34 PM [facility] Platelet Count 291 150 - 400 10 3/uL 09/25/2021 3:34 PM [facility] RDW-SD 54.1(H) 36.0 - 50.0 fL 09/25/2021 3:34 PM [facility] RDW-CV 13.9 11.2 - 14.8 % 09/25/2021 3:34 PM [facility] MPV 9.7 9.4 - 12.9 fL 09/25/2021 3:34 PM [facility] nRBC Absolute 0.00 0 10 3/uL 09/25/2021 3:34 PM [facility] nRBC Auto 0.0 0 /100 WBC 09/25/2021 3:34 PM [facility] Neutrophils % 50.5 35.0 - 70.0 % 09/25/2021 3:34 PM [facility] Lymphocytes % 25.8 20.0 - 43.0 % 09/25/2021 3:34 PM [facility] Monocytes % 9.8 5.0 - 13.0 % 09/25/2021 3:34 PM [facility] Eosinophils % 12.3(H) 0.0 - 6.0 % 09/25/2021 3:34 PM [facility] Basophil % 1.5 0.0 - 2.0 % 09/25/2021 3:34 PM [facility] Neutrophils Absolute 4.0 1.6 - 7.0 10 3/uL 09/25/2021 3:34 PM [facility] Lymphocyte Absolute 2.0 1.1 - 3.9 10 3/uL 09/25/2021 3:34 PM [facility] Monocytes Absolute 0.77 0.26 - 1.07 10 3/uL 09/25/2021 3:34 PM [facility] Eosinophils Absolute 0.97(H) 0.00 - 0.47 10 3/uL 09/25/2021 3:34 PM [facility] Basophils Absolute 0.12(H) 0.00 - 0.08 10 3/uL 09/25/2021 3:34 PM [facility] Immature Granulocytes % 0.1 0.0 - 1.0 % 09/25/2021 3:34 PM [facility] Immature Granulocytes Absolute 0.01 09/25/2021 3:34 PM [facility] Blood BLOOD SPECIMEN / Unknown Lab Venipuncture / Unknown 09/25/2021 3:14 PM PINION POLISHER 09/25/2021 3:29 PM [facility] Garland Fernandez MD LAB - HEMATOLOGY ORD ERABLES [facility] [address] [place] [phone] [phone] * (ABNORMAL) COMPREHENSIVE METABOLIC PANEL (09/25/2021 3:14 PM PINION POLISHER) BUN 23 7 - 26 mg/dL 09/25/2021 3:56 PM [facility] Creatinine 0.99 0.71 - 1.16 mg/dL 09/25/2021 3:56 PM [facility] Sodium 142 136 - 145 mmol/L 09/25/2021 3:56 PM [facility] Potassium 4.3 3.5 - 4.5 mmol/L 09/25/2021 3:56 PM [facility] Chloride 103 98 - 107 mmol/L 09/25/2021 3:56 PM [facility] CO2 26 22 - 29 mmol/L 09/25/2021 3:56 PM [facility] Glucose 74 70 - 115 mg/dL 09/25/2021 3:56 PM [facility] Calcium 9.9 8.4 - 10.2 mg/dL 09/25/2021 3:56 PM [facility] Protein Total 7.7 6.0 - 8.3 g/dL 09/25/2021 3:56 PM [facility] Albumin 3.8 3.4 - 5.0 g/dL 09/25/2021 3:56 PM [facility] Bilirubin Total 0.5 0.2 - 1.2 mg/dL 09/25/2021 3:56 PM [facility] Alkaline Phosphatase 127 40 - 150 U/L 09/25/2021 3:56 PM [facility] ALT 28 5 - 55 U/L 09/25/2021 3:56 PM [facility] AST 30 5 - 34 U/L 09/25/2021 3:56 PM [facility] Anion Gap 17 8 - 18 09/25/2021 3:56 PM [facility] BUN/Creatinine Ratio 23 7 - 23 09/25/2021 3:56 PM [facility] Osmolality Calculated 296 270 - 300 mOsm/kg 09/25/2021 3:56 PM [facility] Albumin/Globulin Ratio 1.0(L) 1.1 - 2.3 09/25/2021 3:56 PM [facility] eGFR by CKD-EPI 76(L) >=90 mL/min/1.7 3 m2 09/25/2021 3:56 PM [facility] Blood BLOOD SPECIMEN / Unknown Lab Venipuncture / Unknown 09/25/2021 3:14 PM PINION POLISHER 09/25/2021 3:29 PM PINION POLISHER Garland Fernandez MD LAB - CHEMISTRY FERMIN [facility] Organization Address City/State/[facility] Co de Phone Number [facility] [address] [place] [address], [facility] [phone] * XR CHEST 2VW (09/25/2021 3:11 PM PINION POLISHER) Anatomical Region Laterality Modality Chest Radiographic Mariella ging 09/25/2021 3:12 PM PINION POLISHER Impressions 09/25/2021 3:28 PM PINION POLISHER IMPRESSION: No acute pulmonary process. Dictated by Melissa Chand MD (residential field manager). I, Dr. FELIX ANTONIO MD, [facility] have personally reviewed and interpreted this examination/study. This report was electronically signed by FELIX ANTONIO MD, FRCR on 09/25/2021 3:28 PM . Narrative 09/25/2021 3:28 PM PINION POLISHER EXAMINATION: XR CHEST 2VW HISTORY: M48.02: Cervical [...] pulmonary process. Dictated by Melissa Chand MD (residential field manager). I, Dr. FELIX ANTONIO MD, [facility] have personally reviewedand interpreted this examination/study. This report was electronically signed by FELIX ANTONIO MD, [facility] on 09/25/2021 3:28 PM . Garland Frenandez MD DIAGNOSTIC IMAGING O RDERABLES * EKG 12-LEAD (09/25/2021 2:33 PM PINION POLISHER) Ventricular Rate 63 BPM [facility] Atrial Rate 63 BPM [facility] P-R Interval 194 ms [facility] QRS Duration ms 148 ms [facility] Q-T Interval ms 432 ms [facility] QTC Calculation (Bezet) 442 ms [facility] Calculated P [place] 77 degrees [facility] Calculated R [place] -108 degrees [facility] Calculated T [place] 66 degrees [facility] Interpretation EKG SINUS RHYTHM WITH MARKED SINUS ARRYTHMIA LEFT ANTERIOR HEMIBLOCK RIGHT BUNDLE BRANCH BLOCK BIFASCICULAR BLOCK SEPTAL INFARCT , AGE UNDETERMINED Poor R wave progression in precordial leads \ ABNORMAL ECG NO PREVIOUS ECGS AVAILABLE Confirmed by Tiffany FERNÁNDEZ STEVEN ([id number]) on 09/26/2021 8:40:40 PM [facility] 09/25/2021 2:33 PM PINION POLISHER 09/26/2021 8:40 PM PINION POLISHER Garland Fernandez MD ECG ORDERABLES [facility] Care Teams Records Manager Relationship Specialty Start Date End Date Yonatan Bhatti MD [address] [place] [address] PCP - General Family Medicine 10/27/23
--- OUTSIDE RECORDS SUMMARY | 2024-11-26 00:19 | XMS_ITS | Clinical Summary ---
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
--- OUTSIDE RECORDS SUMMARY | 2024-11-26 00:19 | XMS_ITS | Referral Summary ---
Author Organization [facility] Address [address] [place] [address] Care Team Providers Care Water Chemist Name Role Phone Yonatan Bhatti MD Primary Care Provider [phone] Source Comments [facility],non-owned Affiliates and Associated Physician Practices is amultiple site organization consisting of ambulatory clinics and hospital sitesin [place], [place], [place] and [place]. This disclosure is being madepursuant to the Care Everywhere program and may not contain all information available regarding this patient. Last updated 18.[facility] Allergies Active Allergy Reactions Criticality Noted Date [...] when you are drinking? 5 or 6 01/18/202 2 Q3: How often do you have si [...] 81.6 kg (180 lb) 10/28/2022 11:05 AM SAFETY LEAD Height 177.8 cm (5' 10 ) 04/22/2022 1:19 PM CDT Body Mass Index 25.83 04/22/2022 1:19 PM CDT Plan of Treatment Not on file Medical Devices Implanted Type Area Oral Surgery Technician Device Identifier Shelf Expiration Date Model / Serial / Lot Reline-C Renzo Ti 3.5 X 50 Mm, Pre Bent Implanted:Qty: 2 on 09/29/2021 by Garland Fernandez MD at [facility] Other (Type not listed) Bilateral: Spine Cervical [id number] / / Description:Reline-C renzo TI 3.5 x 50 mm, pre bent Tyson Bone Void 10ml Db Grftn Algrf Ptty - [id number] Implanted:Qty: 1 on 09/29/2021 by Garland Fernandez MD at [facility] Other (Type not listed) N/A: Spine Cervical Medtronic Sofamor [employer]anek Spine [id number] / [id number] / Description:bone putty Reline-C Lockscrew Implanted:Qty: 4 on 09/29/2021 by aGrland Fernandez MD at [facility] Screw Bilateral: Spine Cervical Nuvasive [id number] / / Description:Reline- C Locksc rew Reline-C Screw 3.5 X 14 Ma Implanted:Qty: 2 on 09/29/2021 by Garland Fernandez MD at [facility] Screw Bilateral: Spine Cervical Nuvasive [id number] / / Reline-C Screw 3.5x 16 Ma Implanted:Qty: 2 on 09/29/2021 by Garland Fernandez MD at [facility] Screw Bilateral: Spine Cervical Nuvasive [id number] / / Advance Directives * Full Code (Latest Code Status on File) Date Activated Date Inactivated Comments 09/29/2021 4:27 PM 10/01/2021 1:38 PM Care Teams Water Chemist Relationship Specialty Start Date End Date Yonatan Bhatti MD [address] [place] [address] PCP - General Family Medicine 10/27/23
--- OUTSIDE RECORDS SUMMARY | 2024-11-26 00:19 | XMS_ITS | Encounter Summary ---
Author Organization [employer] Address 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
[2024-11-26 11:01] VITALS: BP 153/96; PULSE 96; RESP 20; TEMP 36.5; O2SAT 93
[2024-11-26] MEDS: LACTATED RINGERS 1,000 ML 150 ML IV CONT (11:13)
--- NOTE | 2024-11-26 11:17 | SUR.PREOP ---
At this time, patient would like to cancel care coordination consult
--- NOTE | 2024-11-26 11:54 | P.PNAN_ITS ---
Anes - Initial Pre Proc Eval Procedure: Operation Date: 11/26/24 12:30 Proposed Procedures p Colonoscopy - Jeet Dixon MD Date/Time: 11/26/24 11:54 Surgeon: Jeet Dixon MD Pre Op Diagnosis: hx of colon polyps Patient Data Age: 74 Gender: M Height: 1.78 m Weight: 70.8 kg Last Vital Signs Temp 36.5 C 11/26/24 11:01 Pulse 96 11/26/24 11:01 Resp 20 11/26/24 11:01 BP 153/96 H 11/26/24 11:01 Pulse Ox 93 11/26/24 11:01 O2 Del Method Room Air 11/26/24 11:01 Allergies Allergy/AdvReac Type Severity Reaction Status Date / Time pseudoephedrine (From Allergy Mild RAPID Verified 11/26/24 10:59 Sudafed) HEART BEAT Home Medications ?Medication ?Instructions ?Recorded ?Confirmed ?Type aspirin 81 mg tablet,delayed 81 mg PO DAILY 11/16/19 11/26/24 History release ascorbic acid (vitamin C) 1,000 mg 1 g PO DAILY 12/03/22 11/26/24 History capsule cholecalciferol (vitamin D3) 125 125 mcg PO DAILY 12/03/22 11/26/24 History mcg (5,000 unit) capsule [id number] 120 mcg-lutein 1 tablet PO DAILY 12/03/22 11/26/24 History 150 mcg-herb 50 mg chewable tablet (Alive Men's 50 Plus Multivitamin) peg 400 0.4 %-propylene glycol 1 drp EACH EYE QHS PRN dry eyes 12/03/22 11/19/24 History (PF) 0.3 % eye drops (Systane Hydration (PF)) vitamin E mixed 400 unit capsule 400 unit PO DAILY 12/03/22 11/26/24 History thiamine HCl (vitamin B1) 100 mg 100 mg PO DAILY #90 tabs 01/28/23 11/26/24 Rx tablet lisinopril 20 mg tablet 20 mg PO DAILY hypertension #90 08/26/23 11/26/24 Rx tabs trazodone 50 mg tablet 50 mg PO HS #90 tabs 01/23/24 11/26/24 Rx celecoxib 200 mg capsule (Celebrex) 200 mg PO BID #60 caps 02/03/24 11/26/24 Rx cyclobenzaprine 10 mg tablet See Rx Instructions .Route 02/03/24 11/26/24 Rx .COMPLEX #60 tabs folic acid 1 mg tablet 1 mg PO DAILY #90 tabs 02/07/24 11/26/24 Rx atorvastatin 20 mg tablet See Rx Instructions .Route 03/27/24 11/26/24 Rx .COMPLEX #90 tabs mecobalamin (vitamin B12) 1,000 1,000 mcg sublingual DAILY 05/07/24 11/26/24 History mcg disintegrating tablet,sublingual selenium 200 mcg tablet 200 mcg PO DAILY 05/07/24 11/26/24 History alprazolam 1 mg tablet (Xanax) 1 mg PO QHS PRN sleep #30 tabs 06/15/24 11/19/24 Rx gabapentin 300 mg capsule 900 mg (3 x 300 mg) PO BID #540 08/27/24 11/26/24 Rx caps mirabegron 25 mg tablet,extended 25 mg PO DAILY #90 tabs 08/27/24 11/26/24 Rx release 24 hr (Myrbetriq) budesonide 3 mg See Rx Instructions .Route 09/18/24 11/26/24 Rx capsule,delayed,extended release .COMPLEX #222 ea finasteride 5 mg tablet 5 mg PO HS 11/19/24 11/26/24 History Patient hx anesthesia problems: none Family hx anesthesia problems: none Results Review: All pre-operative results and documents have been reviewed as part of the pre- operative evaluation. [facility] Past Medical History Medical History Skin lesion of right ear Ulnar nerve compression Chronic pain Axonal neuropathy Lumbar spondylosis with myelopathy Cervical spondylosis with myelopathy and radiculopathy Left arm weakness Left leg weakness Urinary incontinence BPH loc w urin obs/LUTS Hand numbness Alcohol abuse Hx of adenomatous colonic polyps Collagenous colitis Trigger finger, left middle finger Left hip pain Bronchitis Benign prostatic hyperplasia Hypertension Spondylosis Chronic back pain Daily consumption of alcohol Tobacco use Gastroesophageal reflux disease Generalized anxiety disorder COVID-19 (09/29/20) Cigarette smoker History of colon polyps Essential (primary) hypertension Mixed hyperlipidemia Surgical History Surgical History H/O cervical spinal arthrodesis History of colonoscopy with polypectomy History of transurethral resection of prostate History of laparoscopic appendectomy (04/02/21) Status post trigger finger release History of lumbar laminectomy Family History Family History Father Acute myocardial infarction Atherosclerosis of aorta Heart disease Mother Family history of lung cancer Tobacco abuse Sibling No problems noted. Sibling Family history of malignant neoplasm of brain Meningitis Glioblastoma Social History Social History Social History: Surrogate decision maker: Michelle Tatum, spouse. Code status: Full code. Smoking packs per day: 1 Smoking cigarettes per day: 20.0 Years smoked: 60 Smoking pack-years: 60.00 Smoking status: Current every day smoker Tobacco type: cigarettes Second hand tobacco smoke exposure: Yes Alcohol intake: current Drinks per week: 12 Alcohol use details: 5-6 beers/day Substance use: current Substance use type: marijuana Other substance usage details: smokes QOD Do You Feel Safe in your Home?: Yes Lack of Transportation: No Lack of Food: Never True Current Housing: I Have Housing Concerned About Future Housing: No Difficulty Paying Gas/Electric Bills: No Difficulty Paying for Meds: No Currently Unemployed: No Education: Associate Degree Difficulty w/ Childcare or Family Care: No Living arrangements: with family Additional living arrangements comments: Occupation/Education: retired 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 Informed Consent: The patient's anesthetic plan and its attendant risks and benefits were discussed with the patient/family/POA. Questions were solicited and answers provided to the satisfaction of the patient/family/POA.
--- NOTE | 2024-11-26 12:33 | P.HP_ITS ---
History of Present Illness History of Present Illness Consent: Risks, benefits, and alternatives have been discussed and questions answered. Patient agrees to proceed with procedure. Chief complaint: hx of colon polyps Narrative: Javan Tatum is a 74 year old male here for colonoscopy, last one 2019. Past history of collagenous colitis and adenomatous colon polyps, doing well on budesonide Review of Systems 2 Review of Systems: All systems reviewed & are unremarkable except as noted in HPI and below PMFSH Past Medical History Medical History Skin lesion of right ear Ulnar nerve compression Chronic pain Axonal neuropathy Lumbar spondylosis with myelopathy Cervical spondylosis with myelopathy and radiculopathy Left arm weakness Left leg weakness Urinary incontinence BPH loc w urin obs/LUTS Hand numbness Alcohol abuse Hx of adenomatous colonic polyps Collagenous colitis Trigger finger, left middle finger Left hip pain Bronchitis Benign prostatic hyperplasia Hypertension Spondylosis Chronic back pain Daily consumption of alcohol Tobacco use Gastroesophageal reflux disease Generalized anxiety disorder COVID-19 (09/29/20) Cigarette smoker History of colon polyps Essential (primary) hypertension Mixed hyperlipidemia Surgical History Surgical History H/O cervical spinal arthrodesis History of colonoscopy with polypectomy History of transurethral resection of prostate History of laparoscopic appendectomy (04/02/21) Status post trigger finger release History of lumbar laminectomy Family History Family History Father Acute myocardial infarction Atherosclerosis of aorta Heart disease Mother Family history of lung cancer Tobacco abuse Sibling No problems noted. Sibling Family history of malignant neoplasm of brain Meningitis Glioblastoma Social History Social History Social History: Surrogate decision maker: Michelle Tatum, spouse. Code status: Full code. Smoking packs per day: 1 Smoking cigarettes per day: 20.0 Years smoked: 60 Smoking pack-years: 60.00 Smoking status: Current every day smoker Tobacco type: cigarettes Second hand tobacco smoke exposure: Yes Alcohol intake: current Drinks per week: 12 Alcohol use details: 5-6 beers/day Substance use: current Substance use type: marijuana Other substance usage details: smokes QOD Do You Feel Safe in your Home?: Yes Lack of Transportation: No Lack of Food: Never True Current Housing: I Have Housing Concerned About Future Housing: No Difficulty Paying Gas/Electric Bills: No Difficulty Paying for Meds: No Currently Unemployed: No Education: Associate Degree Difficulty w/ Childcare or Family Care: No Living arrangements: with family Additional living arrangements comments: Occupation/Education: retired 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 Gender identity (if verbalized by the patient): Male Spiritual care concerns: No Meds Home Medications and Allergies Home Medications ?Medication ?Instructions ?Recorded ?Confirmed ?Type aspirin 81 mg tablet,delayed 81 mg PO DAILY 11/16/19 11/26/24 History release ascorbic acid (vitamin C) 1,000 mg 1 g PO DAILY 12/03/22 11/26/24 History capsule cholecalciferol (vitamin D3) 125 125 mcg PO DAILY 12/03/22 11/26/24 History mcg (5,000 unit) capsule [id number] 120 mcg-lutein 1 tablet PO DAILY 12/03/22 11/26/24 History 150 mcg-herb 50 mg chewable tablet (Alive Men's 50 Plus Multivitamin) peg 400 0.4 %-propylene glycol 1 drp EACH EYE QHS PRN dry eyes 12/03/22 11/19/24 History (PF) 0.3 % eye drops (Systane Hydration (PF)) vitamin E mixed 400 unit capsule 400 unit PO DAILY 12/03/22 11/26/24 History thiamine HCl (vitamin B1) 100 mg 100 mg PO DAILY #90 tabs 01/28/23 11/26/24 Rx tablet lisinopril 20 mg tablet 20 mg PO DAILY hypertension #90 08/26/23 11/26/24 Rx tabs trazodone 50 mg tablet 50 mg PO HS #90 tabs 01/23/24 11/26/24 Rx celecoxib 200 mg capsule (Celebrex) 200 mg PO BID #60 caps 02/03/24 11/26/24 Rx cyclobenzaprine 10 mg tablet See Rx Instructions .Route 02/03/24 11/26/24 Rx .COMPLEX #60 tabs folic acid 1 mg tablet 1 mg PO DAILY #90 tabs 02/07/24 11/26/24 Rx atorvastatin 20 mg tablet See Rx Instructions .Route 03/27/24 11/26/24 Rx .COMPLEX #90 tabs mecobalamin (vitamin B12) 1,000 1,000 mcg sublingual DAILY 05/07/24 11/26/24 History mcg disintegrating tablet,sublingual selenium 200 mcg tablet 200 mcg PO DAILY 05/07/24 11/26/24 History alprazolam 1 mg tablet (Xanax) 1 mg PO QHS PRN sleep #30 tabs 06/15/24 11/19/24 Rx gabapentin 300 mg capsule 900 mg (3 x 300 mg) PO BID #540 08/27/24 11/26/24 Rx caps mirabegron 25 mg tablet,extended 25 mg PO DAILY #90 tabs 08/27/24 11/26/24 Rx release 24 hr (Myrbetriq) budesonide 3 mg See Rx Instructions .Route 09/18/24 11/26/24 Rx capsule,delayed,extended release .COMPLEX #222 ea finasteride 5 mg tablet 5 mg PO HS 11/19/24 11/26/24 History Allergies Allergy/AdvReac Type Severity Reaction Status Date / Time pseudoephedrine (From Allergy Mild RAPID Verified 11/26/24 10:59 Sudafed) HEART BEAT Vital Signs Vital Signs - 24 hr 11/26/24 11:01 Temperature 97.7 F Pulse Rate 96 Respiratory Rate 20 Blood Pressure 153/96 H Pulse Oximetry 93 Oxygen Delivery Room Air Exam Const: General: comfortable and no acute distress HENMT: Face/Nose/Sinus: Normal nares present Eyes: General: appearance normal, both eyes and all related structures Neck: Neck: no JVD Resp: Auscultation: clear to auscultation bilaterally Cardio: Rate: regular rate Rhythm: regular rhythm GI: Inspection: non-distended GI Palp: Yes Soft to palpation Skin: General skin exam: normal color Neuro: Speech: normal speech Extrem: General: normal to inspection Psych: Mental Status: mental status grossly normal Assessment and Plan Assessment and plan (1) Collagenous colitis: Code(s): K52.831 - Collagenous colitis Status: Acute Assessment and Plan: on budesonide, will get random colon biopsies (2) Polyp of colon: Code(s): K63.5 - Polyp of colon Status: Acute
[2024-11-26 12:49] VITALS: BP 137/58; PULSE 66; RESP 16; O2SAT 99
[2024-11-26 12:59] VITALS: BP 142/61; PULSE 63; RESP 17; O2SAT 99
[2024-11-26 13:09] VITALS: BP 161/65; PULSE 70; RESP 17; O2SAT 99
== END 2024-11-26 13:22 | disposition home or self-care (01) ==
PROVIDERS: PCP Family Medicine; Referring Provider Nurse Practitioner; Visit Provider Internal Medicine Gastroenterology
PROC: 0DJD8ZZ Inspection of Lower Intestinal Tract, Via Natural or Artificial Opening Endoscopic (ICD-10-PCS; CPT 45378; principal; 2024-11-26 12:30)
DX: Z12.11 Encounter for screening for malignant neoplasm of colon (principal); K64.8 Other hemorrhoids; E78.2 Mixed hyperlipidemia; I10 Essential (primary) hypertension; K21.9 Gastro-esophageal reflux disease without esophagitis; R32 Unspecified urinary incontinence; N40.1 Benign prostatic hyperplasia with lower urinary tract symptoms; F41.9 Anxiety disorder, unspecified; G89.29 Other chronic pain; M47.16 Other spondylosis with myelopathy, lumbar region; M47.12 Other spondylosis with myelopathy, cervical region; M47.22 Other spondylosis with radiculopathy, cervical region; M54.9 Dorsalgia, unspecified; F17.210 Nicotine dependence, cigarettes, uncomplicated; F12.90 Cannabis use, unspecified, uncomplicated; Z79.82 Long term (current) use of aspirin; Z79.1 Long term (current) use of non-steroidal anti-inflammatories (NSAID); Z98.890 Other specified postprocedural states; Z98.1 Arthrodesis status; Z86.0100 Personal history of colon polyps, unspecified; Z87.19 Personal history of other diseases of the digestive system; Z80.1 Family history of malignant neoplasm of trachea, bronchus and lung; Z80.8 Family history of malignant neoplasm of other organs or systems; Z82.49 Family history of ischemic heart disease and other diseases of the circulatory system
CPT/HCPCS: G0105; 88305; J2003; J2704; J7120